=== PATIENT | female | born 1970 | race Caucasian/White ===

== ENCOUNTER 2019-12-02 14:10 | Outpatient (REF) | payer OTHER, SELFPAY | END 2019-12-02 14:11 | disposition home or self-care (01) | LOC: HO.XRAY 14:10 | PROVIDERS: Visit Provider Nurse Practitioner | DX: Z13.89 Encounter for screening for other disorder (principal) ==

== ENCOUNTER 2019-12-17 09:53 | Outpatient (REF) | payer OTHER, SELFPAY ==
[2019-12-17 10:38] LABS: Red Blood Count 4.07 X10*6/uL (4.20-5.50); Red Cell Distribution Width 13.3 % (11.0-16.0)
[2019-12-17 10:39] LABS: Basophils Percent Auto 0.4 % (0-2); Eosinophils Absolute Auto 0.1 X10*3/uL (0.0-0.4); Eosinophils Percent Auto 0.7 % (0-4); Hemoglobin 13.1 g/dl (12.0-16.0); Imm Gran Abs Auto 0.02 X10*3/uL (0.00-0.03); Imm Gran Pct Auto 0.2 % (0.0-0.4); Lymphocytes Absolute Auto 2.4 X10*3/uL (1.2-4.9); Lymphocytes Percent Auto 28.2 % (20-40); Mean Corpuscular HGB Conc 32.8 g/dl (31.0-35.0); Mean Corpuscular Hemoglobin 32.2 pg (27.0-33.0); Mean Corpuscular Volume 98.3 fL (80-98); Monocytes Absolute Auto 0.5 X10*3/uL (0.1-1.2); Monocytes Percent Auto 6.2 % (2-11); Neutrophils Absolute Auto 5.4 X10*3/uL (2.0-8.3); Neutrophils Percent Auto 64.3 % (45-73); Platelet Count 176 X10*3/uL (160-400); White Blood Count 8.4 X10*3/uL (4.8-10.8)
[2019-12-17 11:04] LABS: Alanine Aminotransferase 18 U/L (0-31); Albumin Level 4.5 g/dL (3.5-5.0); Alkaline Phosphatase 78 U/L (39-117); Anion Gap 15 (12-20); Aspartate Amino Transferase 28 U/L (5-31); Bilirubin Total 0.6 mg/dL (0.0-1.0); Blood Urea Nitrogen 17 mg/dL (9-16); Calcium 8.9 mg/dL (8.4-10.2); Carbon Dioxide 25 mmol/L (22-29); Chloride 107 mmol/L (96-108); Cholesterol 227 mg/dL; Estimated Glomerular Filt Rate > 60; Glucose Fasting 108 mg/dL (60-99); HDL Cholesterol 78 mg/dL; LDL Cholesterol Calculated 130 mg/dl; Potassium 4.5 mmol/l (3.3-5.1); Sodium 142 mmol/L (135-145); Total Protein 6.7 g/dL (6.5-8.0); Triglycerides 96 mg/dL
[2019-12-17 11:10] LABS: Glucose Urine UA NEG (NEG); Leukocyte Esterase Urine NEG (NEG); Nitrite Urine NEG (NEG); PH 6.5 (5.0-8.0); Specific Gravity - Urine 1.025 (1.005-1.025); Urine Blood NEG (NEG); Urine Ketones NEG (NEG); Urine Protein NEG (NEG-TRACE)
[2019-12-17 11:15] LABS: Appearance Urine HAZY; Color Urine YELLOW; UACC CULT NO
[2019-12-17 11:20] LABS: Erythrocyte Sedimentation Rate 2 MM/HR (0-20)
[2019-12-17 11:24] LABS: Vitamin D 25-OH Total 29.2 ng/mL (>30)
[2019-12-17 11:28] LABS: Amorphous Sediment Urine 1+ /LPF; Mucus Urine 3+ /LPF; RBC Urine 0 /HPF (0); Squamous Epithelial Cell Urine 2+ /LPF; WBC Urine 0 /HPF (0-4)
[2019-12-17 11:36] LABS: Folate 6.6 ng/mL (> or = 4.0); Vitamin B12 247 pg/mL (200-900)
== END 2019-12-17 09:54 | disposition home or self-care (01) ==
LOC: HO.LAB 09:53
PROVIDERS: PCP Internal Medicine; Visit Provider Internal Medicine
DX: E78.5 Hyperlipidemia, unspecified (principal); M54.14 Radiculopathy, thoracic region; M79.7 Fibromyalgia; M51.35 Other intervertebral disc degeneration, thoracolumbar region; N39.3 Stress incontinence (female) (male); E55.9 Vitamin D deficiency, unspecified
CPT/HCPCS: 36415; 80053; 80061; 81001; 82306; 82607; 82746; 83735; 85025; 85652; 86140

== ENCOUNTER 2019-12-24 17:10 | Outpatient (REF) | payer OTHER, SELFPAY | END 2019-12-24 17:11 | disposition home or self-care (01) | LOC: HO.LAB 17:10 | PROVIDERS: Visit Provider Internal Medicine | DX: Z20.828 Contact with and (suspected) exposure to other viral communicable diseases (principal) | CPT/HCPCS: C9803; U0003 ==

== ENCOUNTER 2020-01-22 13:22 | Outpatient (REF) | payer OTHER, SELFPAY ==
--- NOTE | 2020-01-22 | XR_ITS ---
EXAMINATION: XR LUMBAR SPINE XR SACRUM/COCCYX CLINICAL INFORMATION: Low back pain status post injury. COMPARISON: Lumbar spine radiographs 02/27/2018. TECHNIQUE: 3 views lumbar spine, 3 views sacrum and coccyx. FINDINGS: Again seen are degenerative changes in the lumbar spine. There has been interval increase in disc space narrowing at L3-L4 since the prior study. Marked narrowing at L4-L5 is seen. No bony destructive lesions are seen. Facet joint arthritic changes present at L4-L5 and L5-S1. The sacrum and coccyx appear unremarkable without fracture or bony destructive lesions. Phleboliths and probable fallopian tube occlusion device is present in the pelvis. XR/XR sacrum coccyx min 2V IMPRESSION: Slightly progressive degenerative changes lumbosacral spine at L3-L4 with the most prominent findings at L4-L5.
--- NOTE | 2020-01-22 13:28 | XR_ITS ---
EXAMINATION: XR LUMBAR SPINE XR SACRUM/COCCYX CLINICAL INFORMATION: Low back pain status post injury. COMPARISON: Lumbar spine radiographs 02/27/2018. TECHNIQUE: 3 views lumbar spine, 3 views sacrum and coccyx. FINDINGS: Again seen are degenerative changes in the lumbar spine. There has been interval increase in disc space narrowing at L3-L4 since the prior study. Marked narrowing at L4-L5 is seen. No bony destructive lesions are seen. Facet joint arthritic changes present at L4-L5 and L5-S1. The sacrum and coccyx appear unremarkable without fracture or bony destructive lesions. Phleboliths and probable fallopian tube occlusion device is present in the pelvis. XR/XR lumbar spine 2-3V IMPRESSION: Slightly progressive degenerative changes lumbosacral spine at L3-L4 with the most prominent findings at L4-L5.
[2020-01-24 08:30] LABS: HIV AB/AG Nonreactive (Nonreactive)
[2020-01-24 11:26] LABS: HIV Num 1 0.06 S/CO (0.00-0.99)
== END 2020-01-22 13:23 | disposition home or self-care (01) ==
LOC: HO.HMGCX 13:22
PROVIDERS: PCP Internal Medicine; Visit Provider Nurse Practitioner Family
DX: S39.92XA Unspecified injury of lower back, initial encounter (principal); Z20.6 Contact with and (suspected) exposure to human immunodeficiency virus [HIV]
CPT/HCPCS: 72100; 72220; 87389

== ENCOUNTER 2020-01-30 11:05 | Emergency (ER) | payer OTHER, SELFPAY ==
[2020-01-30 11:10] VITALS: PULSE 101; RESP 16; TEMP 36.6; O2SAT 99; BMI 25.8
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
--- NOTE | 2020-01-30 11:19 | XR_ITS ---
EXAMINATION: XR ANKLE, LEFT CLINICAL INFORMATION: Left ankle pain. COMPARISON: None TECHNIQUE: AP, lateral, and mortise views of the left ankle. FINDINGS: The bones and soft tissues are normal. No fracture. Alignment is anatomic. Joint spaces are maintained. No joint effusion. XR/XR ankle LT min 3V IMPRESSION: Unremarkable left ankle.
== END 2020-01-30 12:05 | disposition home or self-care (01) ==
PROVIDERS: Emergency Provider Emergency Medicine Emergency Medical Services; PCP Internal Medicine
DX: S90.02XA Contusion of left ankle, initial encounter (principal); M25.572 Pain in left ankle and joints of left foot; F17.210 Nicotine dependence, cigarettes, uncomplicated; Y29.XXXA Contact with blunt object, undetermined intent, initial encounter; Y93.01 Activity, walking, marching and hiking; Y92.9 Unspecified place or not applicable; Y99.9 Unspecified external cause status; Z71.6 Tobacco abuse counseling; Z79.899 Other long term (current) drug therapy
CPT/HCPCS: 73610; 99283

== ENCOUNTER 2020-02-06 03:45 | Emergency (ER) | payer OTHER, SELFPAY ==
[2020-02-06 03:51] VITALS: BP 112/63; PULSE 99; RESP 18; TEMP 36.6; O2SAT 98; BMI 25.7
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
--- NOTE | 2020-02-06 04:22 | PC.NURSE ---
PATIENT COOPERATIVE WITH STAFF, OBTAINING LABS AT THIS TIME. AWARE OF PLAN TO HAVE CRISIS EVALUATION. CHANGEOVER COMPLETED ON ARRIVAL WITHOUT ISSUE, NO CONTRABAND FOUND.
--- NOTE | 2020-02-06 04:25 | PC.NURSE ---
see previous nurse's notes regarding Suicidal statements. & autopsy assistant (Shannen) aware.
[2020-02-06 04:27] LABS: Basophils Percent Auto 0.4 % (0-2); Eosinophils Absolute Auto 0.1 X10*3/uL (0.0-0.4); Eosinophils Percent Auto 0.9 % (0-4); Hematocrit 37.2 % (37-47); Hemoglobin 12.3 g/dl (12.0-16.0); Imm Gran Abs Auto 0.02 X10*3/uL (0.00-0.03); Imm Gran Pct Auto 0.2 % (0.0-0.4); Lymphocytes Absolute Auto 3.4 X10*3/uL (1.2-4.9); Lymphocytes Percent Auto 40.2 % (20-40); MANUAL DIFF FLAG NO; Mean Corpuscular HGB Conc 33.1 g/dl (31.0-35.0); Mean Corpuscular Hemoglobin 32.3 pg (27.0-33.0); Mean Corpuscular Volume 97.6 fL (80-98); Mean Platelet Volume 12.7 fL (9.4-12.3); Monocytes Absolute Auto 0.5 X10*3/uL (0.1-1.2); Monocytes Percent Auto 6.3 % (2-11); Neutrophils Absolute Auto 4.4 X10*3/uL (2.0-8.3); Platelet Count 163 X10*3/uL (160-400); Red Blood Count 3.81 X10*6/uL (4.20-5.50); Red Cell Distribution Width 13.3 % (11.0-16.0); White Blood Count 8.4 X10*3/uL (4.8-10.8)
[2020-02-06 04:59] LABS: Ethanol 165 mg/dL
[2020-02-06 05:04] LABS: Alanine Aminotransferase 35 U/L (0-31); Albumin Level 4.2 g/dL (3.5-5.0); Anion Gap 16 (12-20); Aspartate Amino Transferase 87 U/L (5-31); Bilirubin Direct < 0.2 mg/dL (0.0-0.5); Bilirubin Total 0.2 mg/dL (0.0-1.0); Blood Urea Nitrogen 17 mg/dL (9-16); Calcium 8.7 mg/dL (8.4-10.2); Carbon Dioxide 22 mmol/L (22-29); Chloride 109 mmol/L (96-108); Creatinine Clr Calc Pharmacy 88.7; Estimated Glomerular Filt Rate > 60; Glucose Random 92 mg/dL (60-115); Sodium 143 mmol/L (135-145); Total Protein 6.5 g/dL (6.5-8.0)
[2020-02-06 05:13] LABS: Alkaline Phosphatase 95 U/L (39-117)
--- NOTE | 2020-02-06 05:22 | PC.NURSE ---
Patient just got transferred from main ED to POD, patient ambulated without gait deficit, provided urine sample and compliant covid swab/pending results. N faxed/called/spoke with Yamile[facility]/confirmed receiept of referral, will continue to monitor.
[2020-02-06 05:33] LABS: COVID-19 Test Negative (Negative)
[2020-02-06 05:56] LABS: Amphetamine Screen Urine Not Detected (Not Detect); Barbiturates, Urine Not Detected (Not Detect); Benzodiazepines Screen Urine Not Detected (Not Detect); Cannabinoid Screen Urine POSITIVE (Not Detect); Cocaine Screen Urine Not Detected (Not Detect); Opiate Screen Urine Not Detected (Not Detect); Phencyclidine Screen Urine Not Detected (Not Detect)
--- NOTE | 2020-02-06 07:04 | PC.NURSE ---
Report received. PT currently sleeping, respirations even and unlabored, in no apparent distress. Pt waiting to be seen.
[2020-02-06 09:02] VITALS: BP 126/76; PULSE 84; TEMP 36.3; O2SAT 99
== END 2020-02-06 16:26 | disposition home or self-care (01) ==
PROVIDERS: Emergency Provider Internal Medicine; PCP Internal Medicine
DX: F41.9 Anxiety disorder, unspecified (principal); F43.10 Post-traumatic stress disorder, unspecified; R45.851 Suicidal ideations; S00.83XA Contusion of other part of head, initial encounter; Y04.2XXA Assault by strike against or bumped into by another person, initial encounter; Z20.828 Contact with and (suspected) exposure to other viral communicable diseases; Y93.9 Activity, unspecified; Y92.009 Unspecified place in unspecified non-institutional (private) residence as the place of occurrence of the external cause; Y99.9 Unspecified external cause status
CPT/HCPCS: 36415; 80048; 80076; 80307; 80320; 85025; 87635; 99284

== ENCOUNTER 2020-02-11 11:31 | Outpatient (REF) | payer OTHER, SELFPAY ==
--- NOTE | 2020-02-11 11:35 | MM_ITS ---
EXAMINATION: MM SCREENING DIGITAL BREAST TOMOSYNTHESIS, BILATERAL CLINICAL INFORMATION: Screening. Asymptomatic. The lifetime risk of breast cancer based on the Tyrer-Cuzick Model is 7%. COMPARISON: Mammography: 11/08/2017, 10/07/2016, 07/23/2015, bilateral breast ultrasound 10/07/2016 TECHNIQUE: Digital breast tomosynthesis is performed in both the craniocaudal and mediolateral oblique views along with computer-aided detection (CAD). Synthesized 2D images are generated from the tomosynthesis. FINDINGS: There are scattered areas of fibroglandular density (ACR BI-RADS breast composition Category b). Parenchymal pattern is similar to prior studies. There is no developing density or interval mass or architectural abnormality. No abnormal calcifications. Again, there are scattered parenchymal asymmetries including stable nodular asymmetry 6:00 anterior mid right breast. The axilla and skin contours are unremarkable. There are no significant changes from prior studies. MM/MM tomosynthesis screening BI IMPRESSION: No significant changes from prior studies. ASSESSMENT: BI-RADS 2: Benign RECOMMENDATION: Routine annual mammography screening. This patient's information was entered into a reminder system with a target due date for their next mammogram.
== END 2020-02-11 11:32 | disposition home or self-care (01) ==
LOC: HO.MAMMO 11:31
PROVIDERS: PCP Internal Medicine; Visit Provider Internal Medicine
DX: Z12.31 Encounter for screening mammogram for malignant neoplasm of breast (principal)
CPT/HCPCS: 77063; 77067

== ENCOUNTER 2020-02-28 15:04 | Outpatient (REF) | payer OTHER, SELFPAY | END 2020-02-28 15:05 | disposition home or self-care (01) | LOC: HO.LAB 15:04 | PROVIDERS: PCP Internal Medicine; Visit Provider Obstetrics & Gynecology | DX: R73.01 Impaired fasting glucose (principal); R30.0 Dysuria; E78.00 Pure hypercholesterolemia, unspecified; G47.00 Insomnia, unspecified; R10.2 Pelvic and perineal pain; F17.210 Nicotine dependence, cigarettes, uncomplicated; Z79.899 Other long term (current) drug therapy; Z79.891 Long term (current) use of opiate analgesic; Z20.828 Contact with and (suspected) exposure to other viral communicable diseases | CPT/HCPCS: 36415; 87086; Q3014; U0003 ==

== ENCOUNTER 2020-03-01 12:29 | Emergency (ER) | payer OTHER, SELFPAY ==
[2020-03-01 12:46] VITALS: BP 134/79; PULSE 70; RESP 16; TEMP 36.8; O2SAT 97; BMI 24.5
--- NOTE | 2020-03-01 12:49 | XR_ITS ---
EXAMINATION: KNEE X-RAY CLINICAL INFORMATION: Fall COMPARISON: Previous exam May 2016 TECHNIQUE: 4 views left knee FINDINGS: Bone alignment is normal. No fracture or dislocation is seen. Joint spaces are normal. There is no joint effusion. XR/XR knee LT 2V IMPRESSION: Unremarkable exam. EXAMINATION: Chest x-ray CLINICAL INFORMATION: Chest pain. History of fall. COMPARISON: Previous chest x-ray April 2019 TECHNIQUE: Two-view chest FINDINGS: The cardiac and mediastinal contours are normal. The lungs are clear. There is no pleural effusion or pneumothorax. Bony structures are unremarkable. IMPRESSION: Unremarkable examination.
--- NOTE | 2020-03-01 12:49 | ECG_ITS ---
Test Reason : STERNAL PAIN Blood Pressure : / mmHG Vent. Rate : 068 BPM Atrial Rate : 068 BPM P-R Int : 158 ms QRS Dur : 078 ms QT Int : 400 ms P-R-T Axes : 027 061 052 degrees QTc Int : 425 ms Normal sinus rhythm Normal ECG When compared with ECG of 19-APR-2019 05:50, No significant change was found Referred By: Qiana Galvan Electronically Signed By:ELISABET UMANZOR
--- NOTE | 2020-03-01 12:49 | XR_ITS ---
EXAMINATION: KNEE X-RAY CLINICAL INFORMATION: Fall COMPARISON: Previous exam May 2016 TECHNIQUE: 4 views left knee FINDINGS: Bone alignment is normal. No fracture or dislocation is seen. Joint spaces are normal. There is no joint effusion. XR/XR chest 2V IMPRESSION: Unremarkable exam. EXAMINATION: Chest x-ray CLINICAL INFORMATION: Chest pain. History of fall. COMPARISON: Previous chest x-ray April 2019 TECHNIQUE: Two-view chest FINDINGS: The cardiac and mediastinal contours are normal. The lungs are clear. There is no pleural effusion or pneumothorax. Bony structures are unremarkable. IMPRESSION: Unremarkable examination.
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
--- NOTE | 2020-03-01 13:06 | PC.NURSE ---
ekg performed, results reviewed by tootie salamanca/dr stewart
[2020-03-01 13:44] VITALS: BP 127/80; PULSE 60; RESP 12; TEMP 36.6; O2SAT 97
== END 2020-03-01 14:24 | disposition home or self-care (01) ==
PROVIDERS: Emergency Provider Emergency Medicine Emergency Medical Services; PCP Internal Medicine
DX: R07.89 Other chest pain (principal); M25.562 Pain in left knee; F17.210 Nicotine dependence, cigarettes, uncomplicated; Z71.6 Tobacco abuse counseling; Z79.899 Other long term (current) drug therapy
CPT/HCPCS: 71046; 73560; 93005; 99283; 99284

== ENCOUNTER 2020-03-10 23:29 | Emergency (ER) | payer OTHER, SELFPAY ==
[2020-03-10 23:32] VITALS: BP 127/84; PULSE 108; RESP 18; TEMP 36.6; O2SAT 97; BMI 24.4
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
--- NOTE | 2020-03-11 00:35 | PC.NURSE ---
PT LAC CLEANED WITH NS. DR CARRINGTON SUTURED RING FINGER AND DERMABOND TO POINTER FINGER BAND AID APPLIED TO RING POINTER DERMABOND FINISH CARPENTER.
[2020-03-11] MEDS: Lidocaine HCl 2 % MPF 5 ML VIAL INFILTRATI (00:38)
== END 2020-03-11 01:00 | disposition home or self-care (01) ==
PROVIDERS: Emergency Provider Emergency Medicine Emergency Medical Services; PCP Internal Medicine
DX: S61.212A Laceration without foreign body of right middle finger without damage to nail, initial encounter (principal); M79.644 Pain in right finger(s); X99.0XXA Assault by sharp glass, initial encounter; Y93.9 Activity, unspecified; Y92.009 Unspecified place in unspecified non-institutional (private) residence as the place of occurrence of the external cause; Y99.9 Unspecified external cause status
CPT/HCPCS: 12001; 99284

== ENCOUNTER → 2020-04-15 15:32 | Outpatient (BNVA) | payer OTHER, SELFPAY | PROVIDERS: Visit Provider Obstetrics & Gynecology ==

== ENCOUNTER 2020-05-19 14:06 | Outpatient (REF) | payer OTHER, SELFPAY ==
--- NOTE | ~2020-05-19 | US_ITS ---
EXAM: Pelvic Ultrasound CLINICAL INDICATION: 49-year-old female with pelvic and perineal pain. COMPARISON: Pelvic ultrasound May 07, 2018 TECHNIQUE: The pelvis was evaluated using transabdominal and transvaginal imaging. FINDINGS: The uterus measures 5.3 x 2.5 x 3.4 cm in longitudinal by AP by transverse dimension. The endometrial stripe is not thickened and measures 0.2 cm. The uterus demonstrates a somewhat heterogeneous echotexture without focal mass. Nabothian cysts are demonstrated within the cervix. The left ovary measures approximately 2.2 x 1.4 x 1.3 cm and is normal. The right ovary measures approximately 2.2 x 1.8 x 1.0 cm and is also normal. There are no abnormal adnexal masses. There is no free fluid in the pelvis. US/US pelvic complete IMPRESSION: Unremarkable sonographic imaging of the pelvis.
--- NOTE | ~2020-05-19 | US_ITS ---
EXAM: Pelvic Ultrasound CLINICAL INDICATION: 49-year-old female with pelvic and perineal pain. COMPARISON: Pelvic ultrasound May 07, 2018 TECHNIQUE: The pelvis was evaluated using transabdominal and transvaginal imaging. FINDINGS: The uterus measures 5.3 x 2.5 x 3.4 cm in longitudinal by AP by transverse dimension. The endometrial stripe is not thickened and measures 0.2 cm. The uterus demonstrates a somewhat heterogeneous echotexture without focal mass. Nabothian cysts are demonstrated within the cervix. The left ovary measures approximately 2.2 x 1.4 x 1.3 cm and is normal. The right ovary measures approximately 2.2 x 1.8 x 1.0 cm and is also normal. There are no abnormal adnexal masses. There is no free fluid in the pelvis. US/US transvaginal IMPRESSION: Unremarkable sonographic imaging of the pelvis.
== END 2020-05-19 14:07 | disposition home or self-care (01) ==
LOC: HO.US 14:06
PROVIDERS: Visit Provider Obstetrics & Gynecology
DX: R10.2 Pelvic and perineal pain (principal); R30.0 Dysuria
CPT/HCPCS: 76830; 76856

== ENCOUNTER 2020-06-11 11:20 | Outpatient (REF) | payer OTHER, SELFPAY ==
--- NOTE | ~2020-06-11 | XR_ITS ---
EXAMINATION: XR CHEST CLINICAL INFORMATION: Respiratory infection. COMPARISON: 03/01/2020 TECHNIQUE: 2 views of the chest were obtained. FINDINGS: The cardiomediastinal silhouette is within normal limits. The lungs are well expanded. Mild hazy opacity in the right lower lung, may represent a subtle developing infiltrate. No dense consolidation. No edema, or effusion. No pneumothorax. No acute osseous abnormality. XR/XR chest 2V IMPRESSION: Mild hazy opacity in the right lower lung, may represent a subtle developing infiltrate. No dense lobar consolidation.
--- NOTE | ~2020-06-11 | XR_ITS ---
EXAMINATION: XR LEFT HIP XR SACRUM CLINICAL INFORMATION: Pain COMPARISON: None TECHNIQUE: Left hip 2 views. Sacrum and coccyx 3 views. FINDINGS: Left Hip: No fracture or dislocation. Joint space is maintained. No abnormal soft tissue calcification Sacrum and Coccyx: No evidence of acute fracture or malalignment. SI joints are intact. Visualized pelvic bones appear intact. Calcification of the pelvis, probable phleboliths. XR/XR sacrum coccyx min 2V IMPRESSION: No acute osseous abnormality.
--- NOTE | ~2020-06-11 | XR_ITS ---
EXAMINATION: XR LEFT HIP XR SACRUM CLINICAL INFORMATION: Pain COMPARISON: None TECHNIQUE: Left hip 2 views. Sacrum and coccyx 3 views. FINDINGS: Left Hip: No fracture or dislocation. Joint space is maintained. No abnormal soft tissue calcification Sacrum and Coccyx: No evidence of acute fracture or malalignment. SI joints are intact. Visualized pelvic bones appear intact. Calcification of the pelvis, probable phleboliths. XR/XR hip LT min 2V IMPRESSION: No acute osseous abnormality.
[2020-06-11 12:41] LABS: Imm Gran Abs Auto 0.02 X10*3/uL (0.00-0.03); Imm Gran Pct Auto 0.3 % (0.0-0.4); MANUAL DIFF FLAG SCAN; Platelet Count 162 X10*3/uL (160-400); SCAN SMEAR FLAG 1
[2020-06-11 12:43] LABS: Basophils Percent Auto 0.6 % (0-2); Eosinophils Absolute Auto 0.1 X10*3/uL (0.0-0.4); Eosinophils Percent Auto 0.7 % (0-4); Hematocrit 38.6 % (37-47); Hemoglobin 12.7 g/dl (12.0-16.0); Lymphocytes Absolute Auto 2.8 X10*3/uL (1.2-4.9); Lymphocytes Percent Auto 38.9 % (20-40); Mean Corpuscular HGB Conc 32.9 g/dl (31.0-35.0); Mean Corpuscular Hemoglobin 32.3 pg (27.0-33.0); Mean Corpuscular Volume 98.2 fL (80-98); Mean Platelet Volume 14.1 fL (9.4-12.3); Monocytes Absolute Auto 0.5 X10*3/uL (0.1-1.2); Neutrophils Absolute Auto 3.7 X10*3/uL (2.0-8.3); Neutrophils Percent Auto 52.5 % (45-73); Red Blood Count 3.93 X10*6/uL (4.20-5.50); White Blood Count 7.1 X10*3/uL (4.8-10.8)
[2020-06-11 12:46] LABS: Alanine Aminotransferase 22 U/L (0-31); Albumin Level 4.5 g/dL (3.5-5.0); Alkaline Phosphatase 93 U/L (39-117); Anion Gap 14 (12-20); Aspartate Amino Transferase 22 U/L (5-31); Bilirubin Total 0.5 mg/dL (0.0-1.0); Blood Urea Nitrogen 16 mg/dL (9-16); Calcium 9.5 mg/dL (8.4-10.2); Carbon Dioxide 25 mmol/L (22-29); Chloride 108 mmol/L (96-108); Cholesterol 186 mg/dL; Estimated Glomerular Filt Rate > 60; Glucose Fasting 106 mg/dL (60-99); HDL Cholesterol 75 mg/dL; LDL Cholesterol Calculated 101 mg/dl; Potassium 4.7 mmol/L (3.3-5.1); Sodium 142 mmol/L (135-145); Total Protein 6.7 g/dL (6.5-8.0); Triglycerides 54 mg/dL
[2020-06-11 12:58] LABS: PLT ABN DIST 1
[2020-06-11 13:54] LABS: Estimated Average Glucose 94 mg/dL; Hemoglobin A1c % 4.9 %
== END 2020-06-11 11:21 | disposition home or self-care (01) ==
LOC: HO.LAB 11:20
PROVIDERS: PCP Internal Medicine; Visit Provider Internal Medicine
DX: J98.8 Other specified respiratory disorders (principal); M25.552 Pain in left hip; R73.01 Impaired fasting glucose; E78.00 Pure hypercholesterolemia, unspecified; G47.00 Insomnia, unspecified; M79.7 Fibromyalgia; F17.200 Nicotine dependence, unspecified, uncomplicated; Z20.6 Contact with and (suspected) exposure to human immunodeficiency virus [HIV]
CPT/HCPCS: 36415; 71046; 72220; 73502; 80053; 80061; 83036; 85025

== ENCOUNTER 2020-07-04 12:15 | Emergency (ER) | payer OTHER, SELFPAY ==
--- NOTE | ~2020-07-04 | XR_ITS ---
EXAMINATION: XR FOOT, RIGHT CLINICAL INFORMATION: Right foot pain, bruising status post injury. COMPARISON: None TECHNIQUE: AP, lateral, and oblique views of the right foot. FINDINGS: There is a nondisplaced transverse fracture at the level the proximal metaphysis of the proximal phalanx of the fifth digit. The remainder the digits appear intact. The tarsal bones are normally aligned. There is mild soft tissue swelling. XR/XR foot RT min 3V IMPRESSION: Acute, nondisplaced fracture of the proximal phalanx of the fifth digit with mild soft tissue swelling.
[2020-07-04 12:39] VITALS: BP 139/86; PULSE 84; RESP 20; TEMP 36.1; O2SAT 98; BMI 26.9
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
== END 2020-07-04 15:16 | disposition home or self-care (01) ==
PROVIDERS: Emergency Provider Emergency Medicine; PCP Internal Medicine
DX: S92.514A Nondisplaced fracture of proximal phalanx of right lesser toe(s), initial encounter for closed fracture (principal); W22.8XXA Striking against or struck by other objects, initial encounter; Y93.89 Activity, other specified; Y92.012 Bathroom of single-family (private) house as the place of occurrence of the external cause; Y99.9 Unspecified external cause status
CPT/HCPCS: 73630; 99283

== ENCOUNTER → 2020-07-21 13:13 | Outpatient (BNVA) | payer OTHER, SELFPAY | PROVIDERS: Visit Provider Physician Assistant | DX: S92.514A Nondisplaced fracture of proximal phalanx of right lesser toe(s), initial encounter for closed fracture (principal) | CPT/HCPCS: 99202 ==

== ENCOUNTER 2020-08-06 11:02 | Outpatient (REF) | payer OTHER, SELFPAY ==
[2020-08-07 07:57] LABS: Syphilis Screen Reactive (Nonreactive)
[2020-08-07 08:09] LABS: HIV AB/AG Nonreactive (Nonreactive); HIV Num 1 0.05 S/CO (0.00-0.99)
[2020-08-07 08:35] LABS: HBsAGNum1 0.16 S/CO (0.00-0.99); Hepatitis B Surface Antigen Negative (Negative); ~HepC Num1 0.08 S/CO (0.00-0.79); ~Hepatitis C Antibody Nonreactive (Nonreactive)
[2020-08-07 08:51] LABS: BV Int Neg Control Negative (Negative); BV Int Pos Control Positive (Positive)
[2020-08-07 09:01] LABS: CT PCR NOT DETECTED (Not Detect.); NG PCR NOT DETECTED (Not Detect.)
[2020-08-14 07:41] LABS: RPR Quantitative Non-Reactive (Nonreactive)
[2020-08-14 07:42] LABS: T.Pallidum Particle Agg Test Reactive (Nonreactive)
== END 2020-08-06 11:03 | disposition home or self-care (01) ==
LOC: HO.LAB 11:02
PROVIDERS: PCP Internal Medicine; Visit Provider Obstetrics & Gynecology
DX: N76.0 Acute vaginitis (principal); B96.89 Other specified bacterial agents as the cause of diseases classified elsewhere; R31.29 Other microscopic hematuria; Z11.3 Encounter for screening for infections with a predominantly sexual mode of transmission
CPT/HCPCS: 36415; 86592; 86780; 86803; 87086; 87088; 87186; 87340; 87389; 87480; 87491; 87510; 87591; 87660; 99212

== ENCOUNTER → 2020-08-31 14:39 | Outpatient (BNVA) | payer OTHER, SELFPAY | PROVIDERS: PCP Internal Medicine; Visit Provider Obstetrics & Gynecology | DX: R31.29 Other microscopic hematuria (principal); A53.0 Latent syphilis, unspecified as early or late | CPT/HCPCS: 99212 ==

== ENCOUNTER 2020-09-23 00:20 | Emergency (ER) | payer OTHER, SELFPAY ==
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
[2020-09-23 00:41] VITALS: BP 113/86; PULSE 113; RESP 20; TEMP 37; O2SAT 98; BMI 24.7
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
== END 2020-09-23 02:32 | disposition home or self-care (01) ==
PROVIDERS: Emergency Provider Emergency Medicine
DX: T74.11XA Adult physical abuse, confirmed, initial encounter (principal); S13.9XXA Sprain of joints and ligaments of unspecified parts of neck, initial encounter; S60.222A Contusion of left hand, initial encounter; Y04.2XXA Assault by strike against or bumped into by another person, initial encounter; Y07.03 Male partner, perpetrator of maltreatment and neglect
CPT/HCPCS: 72125; 73130; 99283; 99284

== ENCOUNTER 2020-10-21 09:36 | Emergency (ER) | payer OTHER, SELFPAY ==
[2020-10-21 09:41] VITALS: BP 156/81; PULSE 93; RESP 18; TEMP 36.8; O2SAT 97; BMI 23.8
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
== END 2020-10-21 11:20 | disposition home or self-care (01) ==
PROVIDERS: Emergency Provider Emergency Medicine; PCP Internal Medicine
DX: S16.1XXA Strain of muscle, fascia and tendon at neck level, initial encounter (principal); S46.911A Strain of unspecified muscle, fascia and tendon at shoulder and upper arm level, right arm, initial encounter; M54.2 Cervicalgia; F17.210 Nicotine dependence, cigarettes, uncomplicated; Y04.8XXA Assault by other bodily force, initial encounter; Y93.9 Activity, unspecified; Y92.9 Unspecified place or not applicable; Y99.9 Unspecified external cause status; Z79.899 Other long term (current) drug therapy; Z71.6 Tobacco abuse counseling
CPT/HCPCS: 99283

== ENCOUNTER 2021-01-28 10:58 | Outpatient (REF) | payer OTHER, SELFPAY ==
[2021-01-28 12:44] LABS: Basophils Percent Auto 0.4 % (0-2); Eosinophils Absolute Auto 0.1 X10*3/uL (0.0-0.4); Hemoglobin 14.2 g/dl (12.0-16.0); Imm Gran Abs Auto 0.02 X10*3/uL (0.00-0.03); Imm Gran Pct Auto 0.3 % (0.0-0.4); Mean Corpuscular Volume 96.6 fL (80.0-98.0); Red Cell Distribution Width 14.3 % (11.0-16.0); SCAN SMEAR FLAG 1
[2021-01-28 12:46] LABS: Hematocrit 42.6 % (37.0-47.0); Lymphocytes Absolute Auto 2.9 X10*3/uL (1.2-4.9); Lymphocytes Percent Auto 36.9 % (20-40); Mean Corpuscular HGB Conc 33.3 g/dl (31.0-35.0); Mean Corpuscular Hemoglobin 32.2 pg (27.0-33.0); Monocytes Absolute Auto 0.5 X10*3/uL (0.1-1.2); Monocytes Percent Auto 6.8 % (2-11); Neutrophils Absolute Auto 4.3 x10*3/uL (2.0-8.3); Neutrophils Percent Auto 54.6 % (45-73); Platelet Count 174 X10*3/uL (160-400); Red Blood Count 4.41 X10*6/uL (4.20-5.50); White Blood Count 7.9 X10*3/uL (4.8-10.8)
[2021-01-28 12:52] LABS: MANUAL DIFF FLAG NO; PLT ABN DIST 1
[2021-01-28 13:10] LABS: Alanine Aminotransferase 14 U/L (0-31); Albumin Level 4.4 g/dL (3.5-5.0); Alkaline Phosphatase 91 U/L (39-117); Anion Gap 12 (12-20); Aspartate Amino Transferase 21 U/L (5-31); Bilirubin Total 0.5 mg/dL (0.0-1.0); Blood Urea Nitrogen 11 mg/dL (9-16); C Reactive Protein 0.08 mg/dL (< or = 0.50); Carbon Dioxide 27 mmol/L (22-29); Chloride 108 mmol/L (96-108); Estimated Glomerular Filt Rate > 60; Glucose Random 96 mg/dL (60-115); Sodium 142 mmol/L (135-145); Total Protein 6.9 g/dL (6.5-8.0)
== END 2021-01-28 10:59 | disposition home or self-care (01) ==
LOC: HO.LAB 10:58
PROVIDERS: PCP Internal Medicine; Referring Provider Internal Medicine; Visit Provider Nurse Practitioner
DX: R13.12 Dysphagia, oropharyngeal phase (principal); R19.7 Diarrhea, unspecified; K21.9 Gastro-esophageal reflux disease without esophagitis; R49.0 Dysphonia
CPT/HCPCS: 36415; 80053; 85025; 86140; 99212

== ENCOUNTER 2021-02-04 13:55 | Outpatient (REF) | payer OTHER, SELFPAY | END 2021-02-04 13:56 | disposition home or self-care (01) | LOC: HO.LNP 13:55 | PROVIDERS: Visit Provider Nurse Practitioner | DX: R19.7 Diarrhea, unspecified (principal) | CPT/HCPCS: 87045; 87046; 87338 ==

== ENCOUNTER 2021-03-20 16:40 | Emergency (ER) | payer OTHER, SELFPAY ==
[2021-03-20] VITALS (8 sets, daily range): BP systolic 000–116; BP diastolic 00–79; PULSE 0–84; RESP 15–22; TEMP -17.7–36.8; O2SAT 0–94; BMI 42.9
--- NOTE | 2021-03-20 17:05 | ED_ITS ---
HPI - Altered Mental Status General Chief Complaint: Psychiatric Symptoms Stated Complaint: SI/HI UNCOOPERATIVE PER EMS Time Seen by Provider: 03/20/21 16:54 History of Present Illness HPI narrative: Patient is a 50-year-old female presents today with having altered mental status extremely agitated. History of anxiety. History of COPD. Patient very upset found in an alley. Agitated yelling screaming. Question suicidal ideations. Unable to answer specific questions. Related Data Home Medications Medication Instructions Recorded Confirmed cholecalciferol (vitamin D3) 25 25 mcg PO DAILY 12/23/19 06/05/20 mcg (1,000 unit) tablet fluoxetine 10 mg capsule (Prozac) 10 mg PO DAILY 04/15/20 06/05/20 emtricitabine 200 mg-tenofovir 1 tab PO DAILY 07/21/20 disoproxil fumarate 300 mg tablet Previous Rx's Medication Instructions Recorded ibuprofen 400 mg tablet 400 mg PO Q6H PRN #20 tab 03/01/20 meloxicam 15 mg tablet 15 mg PO DAILY 30 Days #30 tab 04/17/20 ibuprofen 800 mg tablet 800 mg PO Q8H PRN #15 tab 07/04/20 metronidazole 0.75 % vaginal gel 1 appful VAGINAL BEDTIME 5 Days 08/06/20 #37.5 g duloxetine 60 mg capsule,delayed 60 mg PO DAILY #90 cap 08/28/20 release trazodone 50 mg tablet 50 mg PO BEDTIME PRN #90 tab 09/06/20 acetaminophen 500 mg tablet 1,000 mg PO QID PRN #14 tab 10/21/20 (Tylenol Extra Strength) lidocaine HCl 4 % topical cream 1 appl TOPICAL BID PRN #120 g 10/21/20 (Aspercreme (lidocaine HCl)) naproxen 500 mg tablet 500 mg PO BID PRN #10 tab 10/21/20 oxycodone 5 mg tablet 5 mg PO Q6H PRN #14 tab 10/21/20 omeprazole 40 mg capsule,delayed 40 mg PO DAILY 30 Days #30 cap 01/28/21 release simvastatin 10 mg tablet 10 mg PO DAILY #90 tab 02/01/21 Allergies Allergy/AdvReac Type Severity Reaction Status Date / Time No Known Allergies Allergy Verified 08/31/20 14:52 [No Known Allergies*] Review of Systems Review of Systems: Yes Unobtainable due to mental status PMFSH Past Medical History Attestation statement: The following information was validated with the patient. Medical History Abdominal pain Ankle pain, left Anxiety and depression Arthralgia Carpal tunnel syndrome on both sides Cellulitis of right ring finger DDD (degenerative disc disease), thoracolumbar Degenerative arthritis Degenerative disc disease, cervical Fibromyalgia Impaired fasting glucose Insomnia Left hip pain Lumbar radiculopathy Mild stress incontinence Overweight (BMI 25.0-29.9) Posttraumatic stress disorder Pure hypercholesterolemia Smoker Thrombocytopenia Vitamin D deficiency Surgical History History of hip surgery History of tubal ligation Family History Family History Father Diabetes Hypertension Mother Diabetes Hypertension Maternal Grandmother Renal disease Daughter Depression with anxiety Son Depression with anxiety Social History Social History Alcohol intake: current Alcohol intake frequency: a few times a week Alcohol type: beer Cigarettes Per Day: 10 Substance Use Type: Marijuana Advance Directives: Yes Advance Directives on File: Yes Advance Directives Date on File: 12/02/19 Patient : No Current occupational status: unemployed Current occupation: right handed Physical Exam Vital Signs: Vital Signs: Last Vital Signs Temp 98.3 F 03/20/21 18:23 Pulse 84 03/20/21 18:23 Resp 16 03/20/21 18:47 BP 116/79 03/20/21 18:23 Pulse Ox 94 03/20/21 18:23 BMI result Body Mass Index 42.9 Appearance: Agitated Eyes: Pupils equal, round and reactive to light. ENT: Pharynx normal. Neck: Normal inspection. Neck supple. No lymph nodes noted. No crepitus CVS: Normal heart rate and rhythm. Pulses normal. Normal S1 and S2 Respiratory: No respiratory distress. Breath sounds normal. No Wheezing. No rales Abdomen: Soft and nontender. No rigidity. No distention. good BS x4 Skin: Skin warm and dry. Normal skin color. Normal skin turgor. Extremities: No lower extremity edema. Neurovascular intact to all extremities. No Lacerations. No Rash Neuro: extremely agitated yelling and screaming moving all extremities MDM - Altered Mental Status MDM Narrative Medical decision making narrative: Patient extremely agitated given 5 of Haldol to Ativan with good results. Crisis to see patient. Labs unremarkable in stable condition medically cleared. Lab Data Result diagrams: 03/20/21 19:46 03/20/21 19:46 Labs: Lab Results 03/20/21 03/20/21 03/20/21 Range/Units 17:31 18:18 19:37 WBC (4.8-10.8) X10*3/uL RBC (4.20-5.50) X10*6/uL Hgb (12.0-16.0) g/dl Hct (37.0-47.0) % MCV (80.0-98.0) fL MCH (27.0-33.0) pg MCHC (31.0-35.0) g/dl RDW (11.0-16.0) % Plt Count (160-400) X10*3/uL MPV (9.4-12.3) fL Immature Gran % (Auto) (0.0-0.4) % Neut % (Auto) (45-73) % Lymph % (Auto) (20-40) % [place] % (Auto) (2-11) % Eos % (Auto) (0-4) % Baso % (Auto) (0-2) % Lymph # (Auto) (1.2-4.9) X10*3/uL [place] # (Auto) (0.1-1.2) X10*3/uL Eos # (Auto) (0.0-0.4) X10*3/uL Baso # (Auto) (0.0-0.2) X10*3/uL Abs Immat Gran (auto) (0.00-0.03) X10*3/uL Absolute Neuts (auto) (2.0-8.3) x10*3/uL Absolute Nucleated RBC (0.0-0.012) X10*3/uL Nucleated RBC % (auto) (0.0-0.2) /100WBC Sodium (135-145) mmol/L Potassium (3.3-5.1) mmol/L Chloride (96-108) mmol/L Carbon Dioxide (22-29) mmol/L Anion Gap (12-20) BUN (9-16) mg/dL Creatinine (0.5-1.4) mg/dL Estim Creat Clear Calc Estimated GFR POC Glucose 71 (60-115) mg/dL Random Glucose (60-115) mg/dL Calcium (8.4-10.2) mg/dL Total Bilirubin (0.0-1.0) mg/dL Direct Bilirubin (0.0-0.5) mg/dL AST (5-31) U/L ALT (0-31) U/L Alkaline Phosphatase (39-117) U/L Total Protein (6.5-8.0) g/dL Albumin (3.5-5.0) g/dL Urine Color YELLOW Urine Appearance CLEAR Urine pH 5.5 (5.0-8.0) Ur Specific Barrett <= 1.005 (1.005-1.025) Urine Protein NEG (NEG-TRACE) MG/DL Urine Glucose (UA) NEG (NEG) MG/DL Urine Ketones NEG (NEG) MG/DL Urine Blood TRACE (NEG) Urine Nitrite NEG (NEG) Ur Leukocyte Esterase NEG (NEG) Urine RBC 1-4 (0) /HPF Urine WBC 0 (0-4) /HPF Ur Squamous Epith Cells NONE /LPF Urine Bacteria NONE /LPF Urine Opiates Screen (Not Detect) Urine Fentanyl Screen (Not Detect) Ur Barbiturates Screen (Not Detect) Ur Phencyclidine Scrn (Not Detect) Ur Amphetamines Screen (Not Detect) U Benzodiazepines Scrn (Not Detect) Urine Cocaine Screen (Not Detect) U Marijuana (THC) Screen (Not Detect) Ethyl Alcohol mg/dL COVID-19 ([facility]ILIANA) Negative (Negative) COVID-19 Clin Com See Note 03/20/21 03/20/21 03/20/21 Range/Units 19:37 19:46 19:46 WBC 13.0 H (4.8-10.8) X10*3/uL RBC 4.13 L (4.20-5.50) X10*6/uL Hgb 13.2 (12.0-16.0) g/dl Hct 38.5 (37.0-47.0) % MCV 93.2 (80.0-98.0) fL MCH 32.0 (27.0-33.0) pg MCHC 34.3 (31.0-35.0) g/dl RDW 13.5 (11.0-16.0) % Plt Count 152 L (160-400) X10*3/uL MPV 12.9 H (9.4-12.3) fL Immature Gran % (Auto) 0.3 (0.0-0.4) % Neut % (Auto) 76.1 H (45-73) % Lymph % (Auto) 18.4 L (20-40) % [place] % (Auto) 4.8 (2-11) % Eos % (Auto) 0.2 (0-4) % Baso % (Auto) 0.2 (0-2) % Lymph # (Auto) 2.4 (1.2-4.9) X10*3/uL [place] # (Auto) 0.6 (0.1-1.2) X10*3/uL Eos # (Auto) 0.0 (0.0-0.4) X10*3/uL Baso # (Auto) 0.0 (0.0-0.2) X10*3/uL Abs Immat Gran (auto) 0.04 H (0.00-0.03) X10*3/uL Absolute Neuts (auto) 9.9 H (2.0-8.3) x10*3/uL Absolute Nucleated RBC 0.000 (0.0-0.012) X10*3/uL Nucleated RBC % (auto) 0.0 (0.0-0.2) /100WBC Sodium 144 (135-145) mmol/L Potassium 3.8 D (3.3-5.1) mmol/L Chloride 113 H (96-108) mmol/L Carbon Dioxide 20 L (22-29) mmol/L Anion Gap 15 (12-20) BUN 12 (9-16) mg/dL Creatinine 0.91 (0.5-1.4) mg/dL Estim Creat Clear Calc 89.3 Estimated GFR > 60 POC Glucose (60-115) mg/dL Random Glucose 86 (60-115) mg/dL Calcium 9.6 (8.4-10.2) mg/dL Total Bilirubin 0.5 (0.0-1.0) mg/dL Direct Bilirubin 0.2 (0.0-0.5) mg/dL AST 30 D (5-31) U/L ALT 23 (0-31) U/L Alkaline Phosphatase 98 (39-117) U/L Total Protein 6.9 (6.5-8.0) g/dL Albumin 4.4 (3.5-5.0) g/dL Urine Color Urine Appearance Urine pH (5.0-8.0) Ur Specific Barrett (1.005-1.025) Urine Protein (NEG-TRACE) MG/DL Urine Glucose (UA) (NEG) MG/DL Urine Ketones (NEG) MG/DL Urine Blood (NEG) Urine Nitrite (NEG) Ur Leukocyte Esterase (NEG) Urine RBC (0) /HPF Urine WBC (0-4) /HPF Ur Squamous Epith Cells /LPF Urine Bacteria /LPF Urine Opiates Screen Not Detected (Not Detect) Urine Fentanyl Screen Not Detected (Not Detect) Ur Barbiturates Screen Not Detected (Not Detect) Ur Phencyclidine Scrn Not Detected (Not Detect) Ur Amphetamines Screen Not Detected (Not Detect) U Benzodiazepines Scrn Not Detected (Not Detect) Urine Cocaine Screen Not Detected (Not Detect) U Marijuana (THC) Screen POSITIVE H (Not Detect) Ethyl Alcohol mg/dL COVID-19 (EMILIANA) (Negative) COVID-19 Clin Com 03/20/21 Range/Units 19:46 WBC (4.8-10.8) X10*3/uL RBC (4.20-5.50) X10*6/uL Hgb (12.0-16.0) g/dl Hct (37.0-47.0) % MCV (80.0-98.0) fL MCH (27.0-33.0) pg MCHC (31.0-35.0) g/dl RDW (11.0-16.0) % Plt Count (160-400) X10*3/uL MPV (9.4-12.3) fL Immature Gran % (Auto) (0.0-0.4) % Neut % (Auto) (45-73) % Lymph % (Auto) (20-40) % [place] % (Auto) (2-11) % Eos % (Auto) (0-4) % Baso % (Auto) (0-2) % Lymph # (Auto) (1.2-4.9) X10*3/uL [place] # (Auto) (0.1-1.2) X10*3/uL Eos # (Auto) (0.0-0.4) X10*3/uL Baso # (Auto) (0.0-0.2) X10*3/uL Abs Immat Gran (auto) (0.00-0.03) X10*3/uL Absolute Neuts (auto) (2.0-8.3) x10*3/uL Absolute Nucleated RBC (0.0-0.012) X10*3/uL Nucleated RBC % (auto) (0.0-0.2) /100WBC Sodium (135-145) mmol/L Potassium (3.3-5.1) mmol/L Chloride (96-108) mmol/L Carbon Dioxide (22-29) mmol/L Anion Gap (12-20) BUN (9-16) mg/dL Creatinine (0.5-1.4) mg/dL Estim Creat Clear Calc Estimated GFR POC Glucose (60-115) mg/dL Random Glucose (60-115) mg/dL Calcium (8.4-10.2) mg/dL Total Bilirubin (0.0-1.0) mg/dL Direct Bilirubin (0.0-0.5) mg/dL AST (5-31) U/L ALT (0-31) U/L Alkaline Phosphatase (39-117) U/L Total Protein (6.5-8.0) g/dL Albumin (3.5-5.0) g/dL Urine Color Urine Appearance Urine pH (5.0-8.0) Ur Specific Barrett (1.005-1.025) Urine Protein (NEG-TRACE) MG/DL Urine Glucose (UA) (NEG) MG/DL Urine Ketones (NEG) MG/DL Urine Blood (NEG) Urine Nitrite (NEG) Ur Leukocyte Esterase (NEG) Urine RBC (0) /HPF Urine WBC (0-4) /HPF Ur Squamous Epith Cells /LPF Urine Bacteria /LPF Urine Opiates Screen (Not Detect) Urine Fentanyl Screen (Not Detect) Ur Barbiturates Screen (Not Detect) Ur Phencyclidine Scrn (Not Detect) Ur Amphetamines Screen (Not Detect) U Benzodiazepines Scrn (Not Detect) Urine Cocaine Screen (Not Detect) U Marijuana (THC) Screen (Not Detect) Ethyl Alcohol 104 mg/dL COVID-19 (EMILIANA) (Negative) COVID-19 Clin Com Discharge Plan Discharge Clinical Impression: Psychosis Prescriptions: No Action duloxetine 60 mg capsule,delayed release(DR/EC) 60 mg PO DAILY Qty: 90 1RF trazodone 50 mg tablet 50 mg PO BEDTIME PRN (Reason: for insomnia) Qty: 90 1RF simvastatin 10 mg tablet 10 mg PO DAILY Qty: 90 1RF ibuprofen 800 mg tablet 800 mg PO Q8H PRN (Reason: pain) Qty: 15 0RF acetaminophen [Tylenol Extra Strength] 500 mg tablet 1,000 mg PO QID PRN (Reason: fever or pain) Qty: 14 0RF naproxen 500 mg tablet 500 mg PO BID PRN (Reason: pain) Qty: 10 0RF oxycodone 5 mg tablet 5 mg PO Q6H PRN (Reason: pain) Qty: 14 0RF lidocaine HCl [Aspercreme (lidocaine HCl)] 4 % cream 1 appl topical BID PRN (Reason: pain) Qty: 120 0RF ibuprofen 400 mg tablet 400 mg PO Q6H PRN (Reason: pain) Qty: 20 0RF cholecalciferol (vitamin D3) 25 mcg (1,000 unit) tablet 25 mcg PO DAILY 0RF Tenivac (PF) 5 Lf unit- 2 Lf unit/0.5mL suspension 0.5 ml IM ONCE Qty: 0.5 0RF meloxicam 15 mg tablet 15 mg PO DAILY 30 Days Qty: 30 0RF emtricitabine-tenofovir (TDF) 200-300 mg tablet 1 tab PO DAILY 0RF fluoxetine [Prozac] 10 mg capsule 10 mg PO DAILY 0RF metronidazole 0.75 % gel 1 appful vaginal BEDTIME 5 Days Qty: 37.5 0RF omeprazole 40 mg capsule,delayed release(DR/EC) 40 mg PO DAILY 30 Days Qty: 30 3RF
[2021-03-20] MEDS: LORazepam 2 MG/ML VIAL IM (17:16)
[2021-03-20] MEDS: Haloperidol Lactate 5 MG/ML VIAL IM (17:17)
--- NOTE | 2021-03-20 17:56 | PC.NURSE ---
At 1700 patient was brought to ED POD screaming handcuffed on stretcher escorted by ems personnel and police officers. This nurse atempted to discuss with patient what brought them in and patient was hyperverbal with incoherent thought process. MD at bedside stated to give patient 5mg of haldol and 2mg of ativan im med were given and patient was escorted to [facility]. 1:1 was initiated. Patient then proceeded to undress and verbally threaten staff. Patient was able to be re-directed to room where she was able to ly down and rest. 1:[address] but patient is refusing vitals at this time. Resp are even and unlabored will continue to monitor.
--- NOTE | 2021-03-20 18:01 | PC.NURSE ---
Food and drink were offered to patient, patient declined at this time.
[2021-03-20 18:05] LABS: COVID-19 Test Negative (Negative); IDNOW Serial# 9DD0AD1C
[2021-03-20 18:24] LABS: Glucose, Whole Blood 71 mg/dL (60-115)
--- NOTE | 2021-03-20 18:37 | PC.NURSE ---
Patient resting comfortably in bed vitals are stable 1:[address] Patient referred to n.
[2021-03-20 19:47] LABS: Appearance Urine CLEAR; Color Urine YELLOW; Glucose Urine UA NEG (NEG); Leukocyte Esterase Urine NEG (NEG); Nitrite Urine NEG (NEG); PH 5.5 (5.0-8.0); Specific Gravity - Urine <= 1.005 (1.005-1.025); UACC Culture Trigger NO; Urine Blood TRACE (NEG); Urine Ketones NEG (NEG); Urine Protein NEG (NEG-TRACE)
[2021-03-20 19:50] LABS: MANUAL DIFF FLAG NO
[2021-03-20 19:52] LABS: Basophils Percent Auto 0.2 % (0-2); Eosinophils Percent Auto 0.2 % (0-4); Hematocrit 38.5 % (37.0-47.0); Hemoglobin 13.2 g/dl (12.0-16.0); Imm Gran Abs Auto 0.04 X10*3/uL (0.00-0.03); Imm Gran Pct Auto 0.3 % (0.0-0.4); Lymphocytes Absolute Auto 2.4 X10*3/uL (1.2-4.9); Lymphocytes Percent Auto 18.4 % (20-40); Mean Corpuscular HGB Conc 34.3 g/dl (31.0-35.0); Mean Corpuscular Volume 93.2 fL (80.0-98.0); Mean Platelet Volume 12.9 fL (9.4-12.3); Monocytes Absolute Auto 0.6 X10*3/uL (0.1-1.2); Monocytes Percent Auto 4.8 % (2-11); Neutrophils Absolute Auto 9.9 x10*3/uL (2.0-8.3); Neutrophils Percent Auto 76.1 % (45-73); Platelet Count 152 X10*3/uL (160-400); Red Blood Count 4.13 X10*6/uL (4.20-5.50); Red Cell Distribution Width 13.5 % (11.0-16.0)
[2021-03-20 19:55] LABS: WBC Urine 0 /HPF (0-4)
[2021-03-20 20:03] LABS: Ethanol 104 mg/dL
[2021-03-20 20:05] LABS: Barbiturates, Urine Not Detected (Not Detect); Benzodiazepines Screen Urine Not Detected (Not Detect); Cocaine Screen Urine Not Detected (Not Detect); Fentanyl, urine Not Detected (Not Detect); Opiate Screen Urine Not Detected (Not Detect); Phencyclidine Screen Urine Not Detected (Not Detect)
[2021-03-20 20:08] LABS: Alanine Aminotransferase 23 U/L (0-31); Albumin Level 4.4 g/dL (3.5-5.0); Alkaline Phosphatase 98 U/L (39-117); Anion Gap 15 (12-20); Aspartate Amino Transferase 30 U/L (5-31); Bilirubin Direct 0.2 mg/dL (0.0-0.5); Bilirubin Total 0.5 mg/dL (0.0-1.0); Blood Urea Nitrogen 12 mg/dL (9-16); Calcium 9.6 mg/dL (8.4-10.2); Carbon Dioxide 20 mmol/L (22-29); Chloride 113 mmol/L (96-108); Creatinine Clr Calc Pharmacy 89.3; Estimated Glomerular Filt Rate > 60; Glucose Random 86 mg/dL (60-115); Potassium 3.8 mmol/L (3.3-5.1); Sodium 144 mmol/L (135-145); Total Protein 6.9 g/dL (6.5-8.0)
[2021-03-20 20:10] LABS: Amphetamine Screen Urine Not Detected (Not Detect); Cannabinoid Screen Urine POSITIVE (Not Detect)
[2021-03-21 01:26] VITALS: RESP 16
[2021-03-21 04:50] VITALS: RESP 16
--- NOTE | 2021-03-21 07:27 | MHC.CARE ---
CAREM Team spoke with nursing - Pts assessment was delayed due to medication restraint. CARE Team emailed [facility] intake regarding ETA.
[2021-03-21 07:44] VITALS: RESP 16
--- NOTE | 2021-03-21 10:02 | PC.NURSE ---
BHN in to assess pt at this time.
[2021-03-21 10:31] VITALS: BP 134/67; PULSE 87; RESP 16; TEMP 37.1; O2SAT 97
[2021-03-21] MEDS: LORazepam 1 MG TABLET PO (12:40)
[2021-03-21] MEDS: Nicotine 21 MG PATCH.TD24 TRANSDERMA (12:40)
--- NOTE | 2021-03-21 12:57 | PHA.MEDREC ---
Pharmacy Consult ? Medication Reconciliation Pharmacy has completed the medication reconciliation.
--- NOTE | 2021-03-21 13:08 | MHC.CARE ---
CARE team provided supportive contact for pt who was unaware that she was a section 12 bedsearch. Pt voiced she was not seeking IPLOC and did not understand or have memory of her acute behavior upon arrival. Pt feels the crisis team did not fully interview her and was feeling anxious and upset asking to leave. Pt did calm herself in this interaction and was willing to accept medication and nicotine patch as well as lunch. Pt was tearful at reflecting her recent housing stress and was visibly calm and willing to rest quietly upon exiting. T/w spoke w ED provider about the orders for the above.
--- NOTE | 2021-03-21 17:30 | PC.NURSE ---
Pt sitting in meliu room. Per patient I don't know why I m here, they (event marketing representative) made up me being physical. pt requests that I preform reseach regarding why [facility] made the patient bed search.
[2021-03-21 19:47] VITALS: BP 117/78; PULSE 108; TEMP 36.6; O2SAT 97
[2021-03-21] MEDS: diphenhydrAMINE HCL 25 MG TABLET 50 MG PO (22:36)
--- NOTE | 2021-03-22 00:12 | PC.NURSE ---
ROSS called/spoke with Rick, confirmed patient is on section 12 inpatient bed search with no update on bed search so far,, will continue to monitor.
--- NOTE | 2021-03-22 05:16 | PC.NURSE ---
Addendum entered by Aníbal Zelaya RN 03/22/21 05:21: Disposition per N is section 12 inpatient bed search Original Note: Patient slept though the night, no distress observed/reported, patient received Benadryl 50 mg at 2236 with + effect, VSS, medication compliant, behavior appropriate, disposition per care team is voluntary inpatient bed search, will continue to monitor.
[2021-03-22] MEDS: Omeprazole 40 MG CAPSULE.DR PO (06:25)
[2021-03-22] MEDS: Atorvastatin Calcium 10 MG TABLET PO (08:32)
[2021-03-22] MEDS: Cholecalciferol (Vitamin D3) 25 MCG TABLET PO (08:32)
--- NOTE | 2021-03-22 09:04 | PC.NURSE ---
pt given morning meds as documented, accepted breakfast. pt pleasant, no behavioral issues noted/reported. Pt inquiring about her disposition states that she just got approved for housing and do not want to loose it. Care Team made aware and will follow-up. denies pain, no complaints. pt sitting in common area at this time. will continue to monitor.
--- NOTE | 2021-03-22 12:11 | PC.NURSE ---
pt accepted to [facility], pt made aware by this leader writer and got upset and stated that she feels like she is being held against her will . Care Team made aware and will have someone meet with pt. will continue to monitor.
[2021-03-22 13:06] LABS: COVID-19 Test Negative (Negative)
[2021-03-22 14:00] VITALS: BP 125/81; PULSE 83; RESP 18; O2SAT 98
[2021-03-22 18:40] VITALS: BP 132/85; PULSE 91; TEMP 36.7; O2SAT 96
[2021-03-22 19:26] VITALS: BP 148/85; PULSE 88; RESP 18; TEMP 36.3; O2SAT 99
--- NOTE | 2021-03-22 19:42 | MHC.CARE ---
Pt was accepted for admission to this evening, however pt was not agreeable to signing in on a Conditional Voluntary basis. After consulting with admitting psychiatrist, Mika Parikh, it was determined that based on the crisis evaluation that pt did not present as a candidate for involuntary admission and recommended that more information be obtained regarding the pt's current presentation and level of risk for harm to self or others. This lead technical writer reviewed pt's chart and [facility] crisis evaluation, met with pt for a face to face mental status, and spoke with pt's daughter on the phone. During the encounter, pt was alert and oriented, pleasant on approach, guarded at times, with some psychomotor agitation. Her speech was slightly pressured but with even tone and volume, eye contact was appropriate, and her hygiene and grooming were somewhat disheveled however it is worth noting that she has been in the [facility] for 48 hours. She denied SI/HI/AVH and did not appear to be responding to internal stimuli, nor did she demonstrate any other signs or symptoms of acute psychosis. Her insight, judgment, and impulse control are poor at this time. Pt's daughter, Saranya reported that her only concerns for her mother's wellbeing are regarding her needing weekly mental health support and her alcohol use. Saranya reported that she knows that her mother wouldn't hurt herself or anyone else, but she is worried about how she is coping with everything that she has been going through over the past few years. She confirmed that it is fine for the pt to return to her home this evening and to continue staying with her until her housing situation is resolved. This lead technical writer spoke with pt re: outpatient referrals for PHP and outpatient therapy. She reported that she has been on a wait list for therapy through [facility] for over a year. She is open to attending PHP and for additional outpatient therapy referrals. This lead technical writer will complete referrals for PHP at [facility] and outpatient therapy at [facility]. Pt transported back to her daughter's apartment via Lyft.
== END 2021-03-23 03:26 | disposition home or self-care (01) ==
PROVIDERS: Emergency Provider Emergency Medicine Emergency Medical Services
DX: F23 Brief psychotic disorder (principal); R45.1 Restlessness and agitation; R00.0 Tachycardia, unspecified; Z20.822 Contact with and (suspected) exposure to COVID-19; F41.9 Anxiety disorder, unspecified; F43.10 Post-traumatic stress disorder, unspecified; E78.00 Pure hypercholesterolemia, unspecified; F17.200 Nicotine dependence, unspecified, uncomplicated; F12.90 Cannabis use, unspecified, uncomplicated; Z79.899 Other long term (current) drug therapy; Z79.02 Long term (current) use of antithrombotics/antiplatelets
CPT/HCPCS: 36415; 80048; 80076; 80307; 81001; 82077; 82947; 85025; 87635; 96372; 99285; J2060; Q0163

== ENCOUNTER 2021-03-29 12:07 | Outpatient (REF) | payer OTHER, SELFPAY ==
--- NOTE | ~2021-03-29 | MM_ITS ---
EXAMINATION: MM SCREENING DIGITAL BREAST TOMOSYNTHESIS, BILATERAL CLINICAL INFORMATION: Screening. Asymptomatic. The lifetime risk of breast cancer based on the Tyrer-Cuzick Model is 7%. COMPARISON: Mammography: 02/11/2020, 11/08/2017, 10/07/2016 TECHNIQUE: Digital breast tomosynthesis is performed in both the craniocaudal and mediolateral oblique views along with computer-aided detection (CAD). Synthesized 2D images are generated from the tomosynthesis. FINDINGS: There are scattered areas of fibroglandular density (ACR BI-RADS breast composition Category b). Small smooth nodule anterior 6:00 right breast is stable. There is no interval mass or architectural abnormality or abnormal calcifications. No developing density. Parenchymal pattern is similar to prior studies. Low right axillary tail node is similar to prior exams. The skin contours are smooth. No significant changes. MM/MM tomosynthesis screening BI IMPRESSION: No mammographic evidence of malignancy. ASSESSMENT: BI-RADS 2: Benign RECOMMENDATION: Routine annual mammography screening. This patient's information was entered into a reminder system with a target due date for their next mammogram.
== END 2021-03-29 12:08 | disposition home or self-care (01) ==
LOC: HO.MAMMO 12:07
PROVIDERS: PCP Internal Medicine; Visit Provider Internal Medicine
DX: Z12.31 Encounter for screening mammogram for malignant neoplasm of breast (principal)
CPT/HCPCS: 77063; 77067

== ENCOUNTER 2021-04-14 11:11 | Outpatient (REF) | payer OTHER, SELFPAY ==
--- NOTE | ~2021-04-14 | US_ITS ---
EXAMINATION: US ABDOMEN COMPLETE CLINICAL INFORMATION: GERD. COMPARISON: Ultrasound abdomen complete 05/08/2019. TECHNIQUE: Real-time imaging of the abdominal viscera. FINDINGS: PANCREAS: Normal. ABDOMINAL AORTA: The proximal, mid, and distal segments are normal in caliber. INFERIOR VENA CAVA: Visualized portions are normal. LIVER: The liver is normal in size. The liver contour is normal. There is increased liver echogenicity. No focal hepatic lesion. There is no intrahepatic biliary duct dilatation seen. GALLBLADDER: Gallbladder wall thickness is 0.2 cm. The gallbladder is physiologically distended without evidence of stones, sludge, polyps, wall thickening or pericholecystic fluid. COMMON BILE DUCT: Normal in caliber measuring 0.4 cm in diameter. RIGHT KIDNEY: There is an anechoic cyst with septation midpole measuring 0.8 x 0.7 x 0.9 cm. No hydronephrosis or renal calculi. The kidney measures 9.9 cm in maximum dimension. LEFT KIDNEY: Normal. No hydronephrosis. No renal calculi or focal parenchymal lesions. The kidney measures 10.7 cm in maximum dimension. SPLEEN: Normal. The spleen measures 8.1 cm in maximum dimension. FREE FLUID: None. US/US abdomen complete IMPRESSION: Hepatic steatosis without focal lesion. Anechoic cyst midpole right kidney with septation measures 0.8 x 0.7 x 0.9 cm.
== END 2021-04-14 11:12 | disposition home or self-care (01) ==
LOC: HO.US 11:11
PROVIDERS: PCP Internal Medicine; Visit Provider Nurse Practitioner
DX: R19.7 Diarrhea, unspecified (principal)
CPT/HCPCS: 76700

== ENCOUNTER 2021-04-27 10:55 | Outpatient (REF) | payer OTHER, SELFPAY ==
--- NOTE | ~2021-04-27 | XR_ITS ---
EXAMINATION: XR CHEST CLINICAL INFORMATION: Chest pain COMPARISON: Chest x-ray 06/11/2020 TECHNIQUE: 2 views of the chest were obtained. FINDINGS: The lungs are well-expanded and clear. The heart size and pulmonary vascularity is normal. No gross bony abnormality seen. XR/XR chest 2V IMPRESSION: Unremarkable chest exam.
[2021-04-27 11:38] LABS: MANUAL DIFF FLAG NO
[2021-04-27 12:27] LABS: Estimated Average Glucose 100 mg/dL; Hemoglobin A1c % 5.1 %
[2021-04-27 12:40] LABS: Basophils Percent Auto 0.3 % (0-2); Eosinophils Absolute Auto 0.1 X10*3/uL (0.0-0.4); Hematocrit 43.9 % (37.0-47.0); Hemoglobin 14.5 g/dl (12.0-16.0); Imm Gran Abs Auto 0.02 X10*3/uL (0.00-0.03); Imm Gran Pct Auto 0.3 % (0.0-0.4); Lymphocytes Absolute Auto 2.3 X10*3/uL (1.2-4.9); Lymphocytes Percent Auto 33.6 % (20-40); Mean Corpuscular Volume 96.9 fL (80.0-98.0); Mean Platelet Volume 13.5 fL (9.4-12.3); Monocytes Absolute Auto 0.4 X10*3/uL (0.1-1.2); Monocytes Percent Auto 5.5 % (2-11); Neutrophils Absolute Auto 4.1 x10*3/uL (2.0-8.3); Neutrophils Percent Auto 59.3 % (45-73); Platelet Count 174 X10*3/uL (160-400); Red Blood Count 4.53 X10*6/uL (4.20-5.50); Red Cell Distribution Width 13.9 % (11.0-16.0); White Blood Count 6.9 X10*3/uL (4.8-10.8)
[2021-04-27 12:51] LABS: Alanine Aminotransferase 14 U/L (0-31); Albumin Level 4.5 g/dL (3.5-5.0); Alkaline Phosphatase 83 U/L (39-117); Anion Gap 14 (12-20); Aspartate Amino Transferase 21 U/L (5-31); Bilirubin Total 0.7 mg/dL (0.0-1.0); Blood Urea Nitrogen 13 mg/dL (9-16); Calcium 10.1 mg/dL (8.4-10.2); Carbon Dioxide 24 mmol/L (22-29); Chloride 107 mmol/L (96-108); Cholesterol 255 mg/dL; Estimated Glomerular Filt Rate > 60; Glucose Fasting 107 mg/dL (60-99); HDL Cholesterol 71 mg/dL; LDL Cholesterol Calculated 157 mg/dl; Magnesium 2.1 mg/dL (1.6-2.6); Potassium 4.1 mmol/L (3.3-5.1); Sodium 141 mmol/L (135-145); Total Protein 6.9 g/dL (6.5-8.0); Triglycerides 135 mg/dL
[2021-04-27 13:03] LABS: Troponin-I High Sensitivity < 3.5 ng/L (<3.5-17.0)
[2021-04-27 13:05] LABS: Erythrocyte Sedimentation Rate 2 MM/HR (0-20)
[2021-04-27 13:05] LABS: Appearance Urine HAZY; Color Urine YELLOW; Glucose Urine UA NEG (NEG); Leukocyte Esterase Urine NEG (NEG); Nitrite Urine NEG (NEG); Specific Gravity - Urine 1.025 (1.005-1.025); UACC Culture Trigger NO; Urine Blood TRACE (NEG); Urine Ketones NEG (NEG); Urine Protein NEG (NEG-TRACE)
[2021-04-27 13:15] LABS: TSH reflex Free T4 0.89 uIU/mL (0.32-4.0); Vitamin D 25-OH Total 18.3 ng/mL (>30)
[2021-04-27 13:39] LABS: Folate 6.8 ng/mL (> or = 4.0); Vitamin B12 267 pg/mL (200-900)
[2021-04-27 14:21] LABS: Bacteria Urine TRACE /LPF; Mucus Urine 2+ /LPF; RBC Urine 0-2 /HPF (0); Squamous Epithelial Cell Urine 1+ /LPF; WBC Urine 0-2 /HPF (0-4)
== END 2021-04-27 10:56 | disposition home or self-care (01) ==
LOC: HO.XRAY 10:55
PROVIDERS: PCP Internal Medicine; Visit Provider Internal Medicine
DX: Z00.00 Encounter for general adult medical examination without abnormal findings (principal); R07.9 Chest pain, unspecified; E55.9 Vitamin D deficiency, unspecified; R20.2 Paresthesia of skin; E78.00 Pure hypercholesterolemia, unspecified; R73.01 Impaired fasting glucose
CPT/HCPCS: 36415; 71046; 80053; 80061; 81001; 81003; 82306; 82607; 82746; 83036; 83735; 84443; 84484; 85025; 85652

== ENCOUNTER 2021-08-02 14:03 | Outpatient (REF) | payer OTHER, SELFPAY ==
--- NOTE | ~2021-08-02 | FL_ITS ---
EXAMINATION: XR BARIUM SWALLOW CLINICAL INFORMATION: Dysphagia COMPARISON: None TECHNIQUE: Fluoroscopy guidance was provided for modified barium swallow performed by the speech and hearing department. Patient was given liquid barium and various food media mixed with barium. FINDINGS: No aspiration or penetration is seen. See speech and hearing department for detailed findings. FLUOROSCOPY TIME: 0.7 minutes DOSE AREA PRODUCT: 0.6 vela per centimeter squared. FL/FL barium swallow modified IMPRESSION: Fluoroscopy guidance for modified barium swallow.
--- NOTE | 2021-08-02 16:33 | MHC.SL.IMP ---
Date of Plan of Treatment: 08/02/21 Onset of Symptoms/Illness: 08/02/20 Date Treatment Started: 08/02/21 Past Medical History: Abdominal pain Ankle pain left Anxiety and depression Arthralgia Cellulitis of right ring finger Thrombocytopenia Carpal tunnel syndrome on both sides Degenerative disc disease thoracolumbar Degenerative arthritis Degenerative disc disease cervical Fibromyalgia Impaired fasting glucose Insomnia Left hip pain Lumbar radiculopathy Mild stress incontinence Overweight Posttraumatic stress disorder Pure Hypercholesterolemia Smoker Thrombocytopenia Vitamin D deficiency Surgical History: History of hip surgery History of tubal ligation Primary Speech & Language Diagnosis: R13.12 Oropharyngeal Phase Dysphagia Reason for Today's Visit: 33698 Modified Barium Swallow Study Pre-evaluation Dietary Consistencies: Regular Pre-evaluation Liquid Consistency: Thin Pre-evaluation Medication Administration: Whole with Liquid Medical History: Modified Barium Swallow Study Fluoroscopic Evaluation of Swallowing Function CPT Code 28701 Evaluation Year: 2021 Reason for Study: Patient reports difficulty swallowing. Referring Physician: Barbara Caba NP Evaluating Clinician: Silvana Rose MA, CCC-[facility] Study Number: 1 Patient Name: Nisreen Valera Status: Outpatient, Ambulatory Age: 50 Gender: Female Current (pre-evaluation) Intake/Diet: Route: PO Diet Grade: Regular Liquid Consistencies: Thin Pre-Study Functional Oral Intake Scale (FOIS): 7- Total oral intake with no restrictions Pain: None reported at time of study SUBJECTIVE: Patient is a 50 year old female referred for a modified barium swallow study by Barbara BARRAGAN of [facility]. During her appointment with G.I., patient reported sensitive stomach with bloating, diarrhea, vocal hoarseness, and odynophagia. Per G.I. notes, patient stated that when she tries to sip on coffee, it feels like her throat is closed and she has to spit it back up. When seen by [facility] today, patient reported similar complaints. Patient reported that when she is drinking coffee in the morning, she often has to cough and spit it back up after taking 3-4 sips. She also reports feeling like her throat is being scraped when she swallows meat and for that reason she has to cut meat into small pieces. Patient states that her throat feels tender to the touch as well. Patient denied globus sensation and states she has no pain when she swallows, but does feel burning in her throat when she is spitting coffee back up. Patient reports onset of dysphagia over a year ago. Most recent chest x-ray from 04/27/21 was unremarkable. Is patient able to manage secretions?: Yes Food and Liquid Trials: Oral Impairment: Lip Closure: 0=No labial escape Oral Impairment: Tongue Control During Bolus Hold: 0=Cohesive bolus between tongue to palatal seal Oral Impairment: Bolus Preparation/Mastication: 0=Timely and efficient chewing and mashing Oral Impairment: Bolus Transport/Lingual Motion: 0=Brisk tongue motion Oral Impairment: Oral Residue: 0=Complete oral clearance Oral Impairment:Initiation of Pharyngeal Swallow: 0=Bolus head at posterior angle of ramus (first hyoid excursion) Pharyngeal Impairment: Soft Palate Elevation: 0=No bolus between soft palate (SP)/pharyngeal wall (PW) Pharyngeal Impairment: Laryngeal Elevation: 0=Complete superior movement of thyroid cartilage (see description) Pharyngeal Impairment: Anterior Hyoid Excursion: 0=Complete anterior movement Pharyngeal Impairment: Epiglottic Movement: 0=Complete inversion Pharyngeal Impairment: Laryngeal Vestibular Closure:: 0=Complete: no air/contrast in laryngeal vestibule Pharyngeal Impairment: Pharyngeal Stripping Wave: 0=Present: complete Pharyngeal Impairment: Pharyngeal Contraction: Did not test Pharyngeal Impairment: Pharyngoesophageal Segment Openin=Complete distension and complete duration: no obstruction of flow Pharyngeal Impairment: Tongue Base (TB) Retraction: 2=Narrow column of contrast/air between TB and posterior PW Pharyngeal Impairment: Pharyngeal Residue: 0=Complete pharyngeal clearance Pharyngeal Impairment: Esophageal Clearance Upright Position: Did not test Impressions and Recommendations Clinical Observations: OBJECTIVE: Time-out: performed at 2:40 Evaluation Start: 2:30; Stop: 2:35 Patient Positioning: Standing Viewing Planes: LATERAL ONLY Contrast: MBSImP? Standardized Protocol using commercially prepared, standardized Barium viscosities, including: Varibar? THIN LIQUID (40% w/v, <15 cps) , 1/2 Shortbread Cookie (1 x1 x.25 ) MBSImP ID: [id number] MBSImP Results: Lip closure for intraoral bolus containment resulted in no labial escape. Tongue control during bolus hold maintained a cohesive bolus held between tongue to palate seal. Bolus preparation and mastication resulted in timely and efficient chewing and mashing. Bolus transport/lingual motion was with brisk tongue motion. Oral residue was not observed. There was complete oral clearance. Initiation of the pharyngeal swallow occurred as the bolus head reached the posterior angle of the mandibular ramus. Soft palate elevation resulted in no bolus between the soft palate and the pharyngeal wall. Laryngeal elevation demonstrated complete superior movement of the thyroid cartilage with complete approximation of the arytenoids to the epiglottic petiole. Anterior hyoid excursion demonstrated complete anterior movement. Epiglottic movement resulted in complete inversion. Laryngeal vestibular closure was complete, as indicated by no air or contrast within the laryngeal vestibule at the height of the swallow. Pharyngeal stripping wave was present and complete. Pharyngeal contraction could not be determined due to logistical reasons not related to physiologic impairment. Pharyngoesophageal segment opening was completely distended for complete duration with no obstruction of bolus flow. Tongue base retraction allowed a narrow column of contrast or air between the retracted tongue base and the posterior pharyngeal wall. Pharyngeal residue was not present. There was complete pharyngeal clearance. Esophageal clearance in the upright position could not be assessed due to logistical reasons not related to physiologic impairment. Oral Impairment Score: 0 Pharyngeal Impairment Score: 2 (absence of score, component 13) Esophageal Impairment Score: --- (absence of score, component 17) Laryngeal Penetration and Aspiration: Neither penetration nor aspiration was observed in today's study with Cookie, Thin. ASSESSMENT: Clinician Assessment: This exam was conducted by a multidisciplinary team, which included a speech pathologist, radiologist, and critical care technician. Patient was standing for lateral view only. Patient trialed the following liquid and solid consistencies: 5 mL thin liquid barium, individual cup sip thin liquid barium with instructions for bolus hold, consecutive cup sips thin liquid barium, pureed solid (mixture applesauce with barium paste), ground solid (mixture chicken salad with barium paste), regular solid (Roma Doone cookie coated with barium paste), barium tablet swallowed with sips of thin liquid barium. Good lip closure, with no escape of bolus into interlabial space. Good tongue control with no premature posterior escape of bolus. Patient maintained cohesive bolus between tongue to palatal seal. Mastication was timely and efficient, with brisk posterior lingual motion for transport of bolus. Complete oral clearance. Pharyngeal swallow trigger was timely, initiated as bolus head reached posterior angle of ramus. There was no nasopharyngeal reflux. Laryngeal elevation was complete, with complete anterior hyoid excursion and complete epiglottic inversion. Complete laryngeal vestibular closure. There was no evidence of aspiration or penetration during this exam. Complete pharyngeal clearance. No obstruction of flow through pharyngoesophageal segment opening. When swallowing barium pill tablet, there was brief hang up of pill in valleculae, which cleared with subsequent sip of thin liquid barium. Liquid Intake Recommendation: Thin Liquid Intake Strategies: Unrestricted Dietary Recommendations: Regular Medication Administration: Whole with Liquid Please contact the pharmacy regarding appropriate crushable or liquid drug formulations that are available whenever modified delivery is recommended. Compensatory Strategies Recommended: Sitting Upright (90 deg) Small Bites and Sips Rate of Ingestion Change Supervision during eating and or drinking: None Needed Recommendation for Speech Therapy: NA:Typical Evaluation Text Comment: PLAN: Intake Recommendations: Route: PO Diet Grade: Regular Liquid Consistencies: Thin Post-Study Functional Oral Intake Scale (FOIS): 7- Total oral intake with no restrictions There was no evidence of aspiration or penetration with solids and liquids. Good oral and pharyngeal clearance. This exam was unremarkable. Suggested Referrals: The patient might benefit from a referral to: Gastroenterology Indication for Referral: Further workup Otolaryngology Indication for Referral: Throat tenderness, vocal hoarseness (Follow w/ speech therapy for hoarseness) Therapy Recommendations: Therapy will be discontinued Prognosis for Improvement: The prognosis for the patient to meet nutritional needs by mouth is excellent based on degree of impairment. Clinician - Supplemental, Miscellaneous Communication: It is important to note MBSS objective studies are snapshots in time and Patient function might vary with factors such as time of day or concomitant medical conditions. For this reason, the final treatment plan for this patient should rest with their medical care team. Additional recommendations should be considered with the totality of the Patient in mind. Thank for the opportunity to participate in the care of this patient. If you have any questions about the content of this report, please contact the [facility] at [facility]. Education: Education regarding findings from today's study and plans for therapy were provided to Patient only through Verbal Instruction. Understanding was expressed by the Patient only. Scientific Director Clinician/Clinical Fellow: No Supervisory Statement: N/A Speech Language Pathologist: Silvana Rose M.A., CCC-[facility]
== END 2021-08-02 14:04 | disposition home or self-care (01) ==
LOC: HO.XRAY 14:03
PROVIDERS: Visit Provider Nurse Practitioner
DX: R13.12 Dysphagia, oropharyngeal phase (principal)
CPT/HCPCS: 74230; 92611

== ENCOUNTER → 2021-08-06 07:14 | Outpatient (REF) | payer OTHER, SELFPAY ==
--- NOTE | 2021-08-06 08:42 | CA_ITS ---
Acquisition Time: 2021-08-06 08:04:52 Total Exercise Time: 00:07:39 Test Indications: Dyspnea Medications: Protocol: LUCRETIA Max HR: 146 BPM 86% of Pred: 168 BPM Max BP: 154/070 mmHG Max Work Load: 9.5 METS Exercise stress test with exercise 7 min 39 sec of Lucretia protocol, achieving 86% MPHR, 9.4 METs with report of anxiety and a tightness in chest prior to exercise with no significant change with exercise, with report of left arm feeling weak during exercise and into recovery, with mild sob, without arrythmia, with normotensive response to exercise, without EKG changes meeting criteria for ischemia. Test reviewed with Dr Bhatt. Referred By: Andreas Christensen Overread By: SHAYY RANDHAWA
== END ==
LOC: HO.CARD 07:14
PROVIDERS: PCP Internal Medicine; Visit Provider Internal Medicine
DX: Z13.89 Encounter for screening for other disorder (principal)
CPT/HCPCS: 93017

== ENCOUNTER 2021-08-19 08:38 | Outpatient (REF) | payer OTHER, SELFPAY ==
[2021-08-28 08:31] LABS: HPV 16 RNA NOT DETECTED (NOT DETECTED); HPV mRNA E6/E7 rflx Detected (Not Detected)
== END 2021-08-19 08:39 | disposition home or self-care (01) ==
LOC: HO.LAB 08:38
PROVIDERS: Visit Provider Obstetrics & Gynecology
DX: Z01.419 Encounter for gynecological examination (general) (routine) without abnormal findings (principal); E78.00 Pure hypercholesterolemia, unspecified; E55.9 Vitamin D deficiency, unspecified; Z11.4 Encounter for screening for human immunodeficiency virus [HIV]
CPT/HCPCS: 87624; 87625; 88142

== ENCOUNTER 2021-08-19 08:39 | Outpatient (REF) | payer OTHER, SELFPAY ==
[2021-08-19 09:35] LABS: Alanine Aminotransferase 21 U/L (0-31); Albumin Level 4.5 g/dL (3.5-5.0); Alkaline Phosphatase 103 U/L (39-117); Anion Gap 11 (12-20); Aspartate Amino Transferase 26 U/L (5-31); Bilirubin Total 0.7 mg/dL (0.0-1.0); Blood Urea Nitrogen 17 mg/dL (9-16); Calcium 9.3 mg/dL (8.4-10.2); Carbon Dioxide 26 mmol/L (22-29); Chloride 109 mmol/L (96-108); Cholesterol 236 mg/dL; Estimated Glomerular Filt Rate > 60; Glucose Fasting 101 mg/dL (60-99); HDL Cholesterol 66 mg/dL; LDL Cholesterol Calculated 141 mg/dl; Potassium 4.3 mmol/L (3.3-5.1); Sodium 142 mmol/L (135-145); Total Protein 6.8 g/dL (6.5-8.0); Triglycerides 149 mg/dL
[2021-08-19 09:57] LABS: Vitamin D 25-OH Total 22.9 ng/mL (>30)
[2021-08-19 10:02] LABS: HIV AB/AG Nonreactive (Nonreactive); HIV Num 1 0.08 S/CO (0.00-0.99)
== END 2021-08-19 08:40 | disposition home or self-care (01) ==
LOC: HO.LAB 08:39
PROVIDERS: PCP Internal Medicine; Visit Provider Obstetrics & Gynecology
DX: Z01.419 Encounter for gynecological examination (general) (routine) without abnormal findings (principal); E78.00 Pure hypercholesterolemia, unspecified; E55.9 Vitamin D deficiency, unspecified; Z11.4 Encounter for screening for human immunodeficiency virus [HIV]; Z11.51 Encounter for screening for human papillomavirus (HPV)
CPT/HCPCS: 36415; 80053; 80061; 82306; 87389

== ENCOUNTER 2021-09-09 10:58 | Outpatient (REF) | payer OTHER, SELFPAY ==
[2021-09-09 11:43] LABS: COVID-19 Test Negative (Negative)
== END 2021-09-09 10:59 | disposition home or self-care (01) ==
LOC: HO.LAB 10:58
PROVIDERS: Visit Provider Internal Medicine
DX: Z20.822 Contact with and (suspected) exposure to COVID-19 (principal)
CPT/HCPCS: 87635; C9803

== ENCOUNTER 2021-09-13 14:40 | Outpatient (REF) | payer OTHER, SELFPAY | END 2021-09-13 14:41 | disposition home or self-care (01) | LOC: HO.LAB 14:40 | PROVIDERS: PCP Internal Medicine; Visit Provider Obstetrics & Gynecology | DX: Z32.02 Encounter for pregnancy test, result negative (principal); B97.7 Papillomavirus as the cause of diseases classified elsewhere | CPT/HCPCS: 57421; 57454; 81025; 88305; 88342; 88360 ==

== ENCOUNTER → 2021-10-06 14:53 | Outpatient (BNVA) | payer OTHER, SELFPAY | PROVIDERS: PCP Internal Medicine; Visit Provider Obstetrics & Gynecology | DX: B97.7 Papillomavirus as the cause of diseases classified elsewhere (principal) | CPT/HCPCS: 99212 ==

== ENCOUNTER → 2021-10-27 09:55 | Outpatient (BNVA) | payer OTHER, SELFPAY | PROVIDERS: PCP Internal Medicine; Referring Provider Internal Medicine; Visit Provider Internal Medicine | DX: R07.2 Precordial pain (principal); R06.02 Shortness of breath | CPT/HCPCS: 93005; 99202 ==

== ENCOUNTER 2021-12-16 13:53 | Outpatient (REF) | payer OTHER, SELFPAY ==
[2021-12-17 03:57] LABS: CT PCR NOT DETECTED (Not Detect.); NG PCR NOT DETECTED (Not Detect.)
[2021-12-17 11:15] LABS: BV Int Neg Control Negative (Negative); BV Int Pos Control Positive (Positive)
== END 2021-12-16 13:54 | disposition home or self-care (01) ==
LOC: HO.LNP 13:53
PROVIDERS: Visit Provider Obstetrics & Gynecology
DX: Z11.3 Encounter for screening for infections with a predominantly sexual mode of transmission (principal); R10.2 Pelvic and perineal pain
CPT/HCPCS: 87480; 87491; 87510; 87591; 87660; 99212

== ENCOUNTER 2022-01-15 19:08 | Emergency (ER) | payer OTHER, SELFPAY ==
--- NOTE | ~2022-01-15 | XR_ITS ---
EXAMINATION: XR CHEST CLINICAL INFORMATION: Cough COMPARISON: Chest x-ray 04/27/2021 TECHNIQUE: 2 views of the chest were obtained. FINDINGS: The lungs are clear. No airspace consolidation, pleural effusion, or pneumothorax. The cardiomediastinal silhouette is within normal limits. No acute osseous injury. Mild disc degenerative change in the mid thoracic spine. XR/XR chest 2V IMPRESSION: No acute pulmonary process.
[2022-01-15 19:32] VITALS: BP 142/97; PULSE 92; RESP 18; TEMP 36.6; O2SAT 100; BMI 25.8
--- NOTE | 2022-01-15 19:32 | ED.GENADULT ---
HPI - General Adult General Chief complaint: Upper Respiratory Symptoms Stated complaint: Blood in stool/Cough Related Data Home Medications Medication Instructions Recorded Confirmed ibuprofen 800 mg tablet 800 mg PO Q8H PRN pain 04/27/21 10/27/21 Previous Rx's Medication Instructions Recorded cholecalciferol (vitamin D3) 25 25 mcg PO DAILY #30 tabs 07/08/21 mcg (1,000 unit) tablet omeprazole 40 mg capsule,delayed 40 mg PO DAILY #90 caps 10/22/21 release simvastatin 20 mg tablet 20 mg PO BEDTIME #90 tabs 10/22/21 metronidazole 500 mg tablet 500 mg PO BID 7 days #14 tabs 12/20/21 Allergies Allergy/AdvReac Type Severity Reaction Status Date / Time No Known Allergies Allergy Verified 01/15/22 19:37 [No Known Allergies*] [facility] Past Medical History Medical History Abdominal pain Ankle pain, left Anxiety and depression Arthralgia Carpal tunnel syndrome on both sides Cellulitis of right ring finger DDD (degenerative disc disease), thoracolumbar Degenerative arthritis Degenerative disc disease, cervical Fibromyalgia Impaired fasting glucose Insomnia Left hip pain Lumbar radiculopathy Mild stress incontinence Overweight (BMI 25.0-29.9) Posttraumatic stress disorder Pure hypercholesterolemia Smoker Thrombocytopenia Vitamin D deficiency Surgical History History of hip surgery History of tubal ligation Family History Family History Father Diabetes Hypertension Mother Diabetes Hypertension Maternal Grandmother Renal disease Daughter Depression with anxiety Son Depression with anxiety Social History Social History Housing: House Alcohol intake: current Alcohol intake frequency: 0-2 drinks per day Alcohol type: beer Patient Tobacco Use Status: Current everyday Tobacco user Cigarettes Per Day: 5 Second Hand Smoke Exposure: Yes Substance Use Type: Marijuana Advance Directives: No Advance Directives Information Provided: No Advance Directives Date on File: 12/02/19 service: No Current occupational status: disabled Cognitive needs: No Hearing needs: No Vision needs: Yes Physical Exam ED Vital Signs: Vital Signs - 24 hr 01/15/22 19:32 Temperature 97.9 F Pulse Rate 92 Respiratory Rate 18 Blood Pressure 142/97 H Pulse Oximetry 100 Oxygen Delivery Method Room Air BMI result Body Mass Index 25.8 Course Course Course Narrative: This is a rapid medical exam. Deferred HPI, PE, ROS to primary provider. 51 yo female here with one week of night sweats, sore throat, cough. Also one month of blood in stools with no abdominal pain, vomiting. Will need labs, CXR, testing for flu, covid, rsv. VSS Medical Decision Making Lab Data Result diagrams: 01/15/22 19:37 01/15/22 19:37 Labs: Lab Results 01/15/22 01/15/22 01/15/22 Range/Units 19:37 19:37 19:37 WBC 9.1 (4.8-10.8) X10*3/uL RBC 4.04 L (4.20-5.50) X10*6/uL Hgb 13.2 (12.0-16.0) g/dl Hct 38.7 (37.0-47.0) % MCV 95.8 (80.0-98.0) fL MCH 32.7 (27.0-33.0) pg MCHC 34.1 (31.0-35.0) g/dl RDW 14.0 (11.0-16.0) % Plt Count 188 (160-400) X10*3/uL MPV 12.7 H (9.4-12.3) fL Immature Gran % (Auto) 0.2 (0.0-0.4) % Neut % (Auto) 54.9 (45-73) % Lymph % (Auto) 38.3 (20-40) % Traill % (Auto) 5.2 (2-11) % Eos % (Auto) 0.8 (0-4) % Baso % (Auto) 0.6 (0-2) % Lymph # (Auto) 3.5 (1.2-4.9) X10*3/uL Traill # (Auto) 0.5 (0.1-1.2) X10*3/uL Eos # (Auto) 0.1 (0.0-0.4) X10*3/uL Baso # (Auto) 0.1 (0.0-0.2) X10*3/uL Abs Immat Gran (auto) 0.02 (0.00-0.03) X10*3/uL Absolute Neuts (auto) 5.0 (2.0-8.3) x10*3/uL Absolute Nucleated RBC 0.000 (0.0-0.012) X10*3/uL Nucleated RBC % (auto) 0.0 (0.0-0.2) /100WBC PT 10.2 (10.0-13.1) SEC INR 0.9 (0.9-1.1) Sodium 135 (135-145) mmol/L Potassium 3.8 (3.3-5.1) mmol/L Chloride 106 (96-108) mmol/L Carbon Dioxide 19 L (22-29) mmol/L Anion Gap 14 (12-20) BUN 15 (9-16) mg/dL Creatinine 0.77 (0.5-1.4) mg/dL Estim Creat Clear Calc 89.2 Estimated GFR > 60 Random Glucose 101 (60-115) mg/dL Calcium 9.0 (8.4-10.2) mg/dL Total Bilirubin 0.3 (0.0-1.0) mg/dL Direct Bilirubin < 0.2 (0.0-0.5) mg/dL AST 41 H (5-31) U/L ALT 20 (0-31) U/L Alkaline Phosphatase 124 H (39-117) U/L Total Protein 6.4 L (6.5-8.0) g/dL Albumin 4.2 (3.5-5.0) g/dL Influenza Type A (PCR) (Negative) Influenza Type B (PCR) (Negative) RSV RNA Qual (PCR) (Negative) SARS-CoV-2 RNA (RT-PCR) (Negative) 01/15/22 Range/Units 19:37 WBC (4.8-10.8) X10*3/uL RBC (4.20-5.50) X10*6/uL Hgb (12.0-16.0) g/dl Hct (37.0-47.0) % MCV (80.0-98.0) fL MCH (27.0-33.0) pg MCHC (31.0-35.0) g/dl RDW (11.0-16.0) % Plt Count (160-400) X10*3/uL MPV (9.4-12.3) fL Immature Gran % (Auto) (0.0-0.4) % Neut % (Auto) (45-73) % Lymph % (Auto) (20-40) % Traill % (Auto) (2-11) % Eos % (Auto) (0-4) % Baso % (Auto) (0-2) % Lymph # (Auto) (1.2-4.9) X10*3/uL Traill # (Auto) (0.1-1.2) X10*3/uL Eos # (Auto) (0.0-0.4) X10*3/uL Baso # (Auto) (0.0-0.2) X10*3/uL Abs Immat Gran (auto) (0.00-0.03) X10*3/uL Absolute Neuts (auto) (2.0-8.3) x10*3/uL Absolute Nucleated RBC (0.0-0.012) X10*3/uL Nucleated RBC % (auto) (0.0-0.2) /100WBC PT (10.0-13.1) SEC INR (0.9-1.1) Sodium (135-145) mmol/L Potassium (3.3-5.1) mmol/L Chloride (96-108) mmol/L Carbon Dioxide (22-29) mmol/L Anion Gap (12-20) BUN (9-16) mg/dL Creatinine (0.5-1.4) mg/dL Estim Creat Clear Calc Estimated GFR Random Glucose (60-115) mg/dL Calcium (8.4-10.2) mg/dL Total Bilirubin (0.0-1.0) mg/dL Direct Bilirubin (0.0-0.5) mg/dL AST (5-31) U/L ALT (0-31) U/L Alkaline Phosphatase (39-117) U/L Total Protein (6.5-8.0) g/dL Albumin (3.5-5.0) g/dL Influenza Type A (PCR) NEGATIVE (Negative) Influenza Type B (PCR) NEGATIVE (Negative) RSV RNA Qual (PCR) POSITIVE A (Negative) SARS-CoV-2 RNA (RT-PCR) NEGATIVE (Negative) Discharge Plan Discharge Clinical Impression: Viral infection Patient Disposition: Elopement Prescriptions: No Action cholecalciferol (vitamin D3) 25 mcg (1,000 unit) tablet 25 mcg PO DAILY Qty: 30 1RF simvastatin 20 mg tablet 20 mg PO BEDTIME Qty: 90 1RF omeprazole 40 mg capsule,delayed release(DR/EC) 40 mg PO DAILY Qty: 90 1RF metronidazole 500 mg tablet 500 mg PO BID 7 Days Qty: 14 0RF Rx Instructions: Take with food, Avoid alcohol and vinegar products ibuprofen 800 mg tablet 800 mg PO Q8H PRN (Reason: pain) Discharge Date/Time: 01/15/22 22:24
[2022-01-15 19:48] LABS: MANUAL DIFF FLAG NO
[2022-01-15 19:49] LABS: Basophils Absolute Auto 0.1 X10*3/uL (0.0-0.2); Basophils Percent Auto 0.6 % (0-2); Eosinophils Absolute Auto 0.1 X10*3/uL (0.0-0.4); Eosinophils Percent Auto 0.8 % (0-4); Hematocrit 38.7 % (37.0-47.0); Hemoglobin 13.2 g/dl (12.0-16.0); Imm Gran Abs Auto 0.02 X10*3/uL (0.00-0.03); Imm Gran Pct Auto 0.2 % (0.0-0.4); Lymphocytes Absolute Auto 3.5 X10*3/uL (1.2-4.9); Lymphocytes Percent Auto 38.3 % (20-40); Mean Corpuscular HGB Conc 34.1 g/dl (31.0-35.0); Mean Corpuscular Hemoglobin 32.7 pg (27.0-33.0); Mean Corpuscular Volume 95.8 fL (80.0-98.0); Mean Platelet Volume 12.7 fL (9.4-12.3); Monocytes Absolute Auto 0.5 X10*3/uL (0.1-1.2); Monocytes Percent Auto 5.2 % (2-11); Neutrophils Percent Auto 54.9 % (45-73); Platelet Count 188 X10*3/uL (160-400); Red Blood Count 4.04 X10*6/uL (4.20-5.50); White Blood Count 9.1 X10*3/uL (4.8-10.8)
[2022-01-15 19:56] LABS: INTERNATIONAL NORM RATIO 0.9 (0.9-1.1); Prothrombin Time 10.2 SEC (10.0-13.1)
[2022-01-15 20:05] LABS: Alanine Aminotransferase 20 U/L (0-31); Albumin Level 4.2 g/dL (3.5-5.0); Alkaline Phosphatase 124 U/L (39-117); Anion Gap 14 (12-20); Aspartate Amino Transferase 41 U/L (5-31); Bilirubin Direct < 0.2 mg/dL (0.0-0.5); Bilirubin Total 0.3 mg/dL (0.0-1.0); Blood Urea Nitrogen 15 mg/dL (9-16); Carbon Dioxide 19 mmol/L (22-29); Chloride 106 mmol/L (96-108); Creatinine Clr Calc Pharmacy 89.2; Estimated Glomerular Filt Rate > 60; Glucose Random 101 mg/dL (60-115); Potassium 3.8 mmol/L (3.3-5.1); Sodium 135 mmol/L (135-145); Total Protein 6.4 g/dL (6.5-8.0)
[2022-01-15 20:41] LABS: Influenza A PCR NEGATIVE (Negative); Influenza B PCR NEGATIVE (Negative); Resp Syncy Virus RNA Qual PCR POSITIVE (Negative); SARS COV2 PCR INHOUSE NEGATIVE (Negative)
== END 2022-01-15 22:24 | disposition left against medical advice (07) ==
LOC: HO.ED 22:24
PROVIDERS: Nurse Practitioner Family; Emergency Provider Emergency Medicine; PCP Internal Medicine
DX: B34.9 Viral infection, unspecified (principal); B97.4 Respiratory syncytial virus as the cause of diseases classified elsewhere
CPT/HCPCS: 0241U; 36415; 71046; 80048; 80076; 85025; 85610; 99282; 99283

== ENCOUNTER 2022-01-28 13:44 | Outpatient (REF) | payer OTHER, SELFPAY ==
--- NOTE | ~2022-01-28 | US_ITS ---
EXAMINATION: US PELVIS CLINICAL INFORMATION: Pelvic and perineal pain COMPARISON: Ultrasound abdomen complete 04/14/2021 and ultrasound pelvis 05/19/2020. TECHNIQUE: Ultrasound of the pelvis is performed using both transabdominal and transvaginal transducers along with Doppler. Transvaginal imaging is performed due to inadequate visualization transabdominally. FINDINGS: Uterus: The uterus is anteverted, anteflexed and measures 5.8 x 2.9 x 4.1 cm The double wall endometrial thickness is 0.29 cm. The uterus is smooth in contour and has normal myometrial echogenicity. No visible fibroid. Adnexa: Both ovaries are visualized. There is normal color flow to the adnexa. There is no ovarian torsion. There is no pelvic ascites or fluid collection. Right ovary measures 2.3 x 1.2 x 1.3 cm. Volume 1.9 mL. No focal lesion seen. Previously right ovary measured 2.2 x 1.8 x 1.0 cm Left ovary measures 1.7 x 1.1 x 1.0 cm and volume 1.0 mL. Previously left ovary measured 2.2 x 1.4 x 1.3 cm. There are prominent vessels in the left adnexa. There is no free fluid in the cul-de-sac. US/US pelvic and transvaginal IMPRESSION: 1. Unremarkable uterus. 2. The ovaries are unremarkable. 3. There are prominent dilated vessels in the left adnexa.
== END 2022-01-28 13:45 | disposition home or self-care (01) ==
LOC: HO.US 13:44
PROVIDERS: Visit Provider Obstetrics & Gynecology
DX: R10.2 Pelvic and perineal pain (principal)
CPT/HCPCS: 76830; 76856

== ENCOUNTER 2022-02-10 02:05 | Emergency (ER) | payer OTHER, SELFPAY ==
--- NOTE | 2022-02-10 | ECG_ITS ---
Test Reason : CHEST PAIN Blood Pressure : / mmHG Vent. Rate : 083 BPM Atrial Rate : 083 BPM P-R Int : 152 ms QRS Dur : 074 ms QT Int : 380 ms P-R-T Axes : 035 033 037 degrees QTc Int : 446 ms Normal sinus rhythm Normal ECG When compared with ECG of 01-MAR-2020 12:59, No significant change was found Referred By: Generic ED Physician Electronically Signed By:JEFF TURNER MD
--- NOTE | ~2022-02-10 | XR_ITS ---
EXAMINATION: XR CHEST CLINICAL INFORMATION: Chest pain COMPARISON: 01/15/2022 TECHNIQUE: 2 views of the chest were obtained. FINDINGS: No significant abnormality is noted involving the heart, lungs, mediastinum, bony thorax or soft tissues. XR/XR chest 2V IMPRESSION: Unremarkable examination.
[2022-02-10 02:18] VITALS: BP 139/91; PULSE 84; RESP 18; TEMP 36.8; O2SAT 96; BMI 26.9
[2022-02-10 02:42] LABS: MANUAL DIFF FLAG NO
[2022-02-10 02:44] LABS: Basophils Absolute Auto 0.1 X10*3/uL (0.0-0.2); Basophils Percent Auto 0.8 % (0-2); Eosinophils Absolute Auto 0.1 X10*3/uL (0.0-0.4); Eosinophils Percent Auto 1.1 % (0-4); Hematocrit 37.9 % (37.0-47.0); Hemoglobin 12.5 g/dl (12.0-16.0); Imm Gran Abs Auto 0.03 X10*3/uL (0.00-0.03); Imm Gran Pct Auto 0.3 % (0.0-0.4); Lymphocytes Absolute Auto 4.3 X10*3/uL (1.2-4.9); Lymphocytes Percent Auto 46.8 % (20-40); Mean Corpuscular Hemoglobin 32.2 pg (27.0-33.0); Mean Corpuscular Volume 97.7 fL (80.0-98.0); Mean Platelet Volume 12.3 fL (9.4-12.3); Monocytes Absolute Auto 0.5 X10*3/uL (0.1-1.2); Monocytes Percent Auto 5.4 % (2-11); Neutrophils Absolute Auto 4.2 x10*3/uL (2.0-8.3); Neutrophils Percent Auto 45.6 % (45-73); Platelet Count 193 X10*3/uL (160-400); Red Blood Count 3.88 X10*6/uL (4.20-5.50); Red Cell Distribution Width 13.6 % (11.0-16.0); White Blood Count 9.1 X10*3/uL (4.8-10.8)
[2022-02-10 02:52] LABS: D Dimer High Sensitivity 185 NG/ML
[2022-02-10 03:03] LABS: Anion Gap 11 (12-20); Blood Urea Nitrogen 13 mg/dL (9-16); Calcium 8.9 mg/dL (8.4-10.2); Carbon Dioxide 25 mmol/L (22-29); Chloride 111 mmol/L (96-108); Creatinine Clr Calc Pharmacy 83.3; Estimated Glomerular Filt Rate > 60; Glucose Random 103 mg/dL (60-115); Potassium 4.3 mmol/L (3.3-5.1); Sodium 143 mmol/L (135-145)
[2022-02-10 03:06] LABS: Troponin-I High Sensitivity < 3.5 ng/L (<3.5-17.0)
[2022-02-10 03:28] VITALS: BP 128/81; PULSE 74; RESP 13; O2SAT 99
--- NOTE | 2022-02-10 04:22 | PC.NURSE ---
this rn assumed care of pt @ 0328. pt brought back to room. ambulated independently. VSS. pt reports 8/10 pain. pt changed over to hospital gown and placed on cardiac monitor technician. awaiting to be seen by ed provider
[2022-02-10] MEDS: Ibuprofen 800 MG TABLET PO (04:57)
--- NOTE | 2022-02-10 05:00 | PC.NURSE ---
pt medicated according to mar. pt resting comfortably on stretcher at this time. no new requests at this time
--- NOTE | 2022-02-10 05:09 | ED_ITS ---
HPI - Chest Pain General Chief Complaint: Chest Pain Stated Complaint: Chest pain Time Seen by Provider: 02/10/22 03:38 Source: patient Mode of arrival: ambulatory Limitations: no limitations History of Present Illness HPI narrative: 51-year-old female came in for evaluation of mid chest pain. Patient started to have chest pain since last night pain is localized to the midsternal area and under the left breast, no trauma or injury to the chest, pain was described as dull aching pain that has been constant sent it started last night pain is 10/10, pain is worse with touching the area or sleeping on her left side nothing relieves the pain otherwise, no coughing or SOB, no fever or chills. No recent travel, no recent prolonged immobilization, no lower extremity swelling or tenderness. Related Data Home Medications Medication Instructions Recorded Confirmed ibuprofen 800 mg tablet 800 mg PO Q8H PRN pain 04/27/21 10/27/21 Previous Rx's Medication Instructions Recorded cholecalciferol (vitamin D3) 25 25 mcg PO DAILY #30 tabs 07/08/21 mcg (1,000 unit) tablet omeprazole 40 mg capsule,delayed 40 mg PO DAILY #90 caps 10/22/21 release simvastatin 20 mg tablet 20 mg PO BEDTIME #90 tabs 10/22/21 metronidazole 500 mg tablet 500 mg PO BID 7 days #14 tabs 12/20/21 albuterol sulfate 90 mcg/actuation 2 puff inhalation Q6H PRN 01/17/22 aerosol inhaler (Ventolin HFA) shortness of breath or wheezing 30 days #8.5 grams ibuprofen 600 mg tablet 600 mg PO Q8H PRN pain #20 tabs 02/10/22 Allergies Allergy/AdvReac Type Severity Reaction Status Date / Time No Known Allergies Allergy Verified 01/15/22 19:37 [No Known Allergies*] Review of Systems Review of Systems: All other systems are reviewed and are negative Constitutional: Reports as per HPI and Reports no additional constitutional complaints Eyes: Reports as per HPI and Reports no additional eye complaints Reports system reviewed and no additional complaints, except as documented Cardiovascular: Reports as per HPI and Reports no additional cardiovascular complaints Respiratory: Reports as per HPI and Reports no additional respiratory complaints Gastrointestinal: Reports as per HPI and Reports no additional gastrointestinal complaints Genitourinary: Reports no additional female genitourinary complaints Musculoskeletal: Reports no additional musculoskeletal complaints Skin/Breast: Reports system reviewed and no additional complaints, except as docu Psychiatric: Reports no additional psychiatric complaints Endocrine: Reports no additional endocrine complaints Hematologic/Lymphatic: Reports no additional hematologic/lymphatic complaints Allergic/Immunologic: Reports no additional allergic/immunologic complaints Reports system reviewed and no additional complaints, except as documented and Reports Abnormal speech present [facility] Past Medical History Medical History Abdominal pain Ankle pain, left Anxiety and depression Arthralgia Carpal tunnel syndrome on both sides Cellulitis of right ring finger DDD (degenerative disc disease), thoracolumbar Degenerative arthritis Degenerative disc disease, cervical Fibromyalgia Impaired fasting glucose Insomnia Left hip pain Lumbar radiculopathy Mild stress incontinence Overweight (BMI 25.0-29.9) Posttraumatic stress disorder Pure hypercholesterolemia Smoker Thrombocytopenia Vitamin D deficiency Surgical History History of hip surgery History of tubal ligation Family History Family History Father Diabetes Hypertension Mother Diabetes Hypertension Maternal Grandmother Renal disease Daughter Depression with anxiety Son Depression with anxiety Social History Social History Housing: House Alcohol intake: current Alcohol intake frequency: a few times a week Alcohol type: beer Patient Tobacco Use Status: Current everyday Tobacco user Cigarettes Per Day: 5 Smoked in Last 30 Days: Yes Second Hand Smoke Exposure: Yes Use of substances other than those prescribed or required for medical reasons: No Substance Use Type: Marijuana Advance Directives: No Advance Directives Information Provided: Yes Advance Directives Date on File: 12/02/19 Patient : No service: No Current occupational status: disabled Cognitive needs: No Hearing needs: No Vision needs: Yes Physical Exam Vital Signs: Vital Signs: Last Vital Signs Temp 98.2 F 02/10/22 02:18 Pulse 74 02/10/22 03:28 Resp 13 02/10/22 03:28 BP 128/81 02/10/22 03:28 Pulse Ox 99 02/10/22 03:28 O2 Del Method 02/10/22 03:28 BMI result Body Mass Index 26.9 Vital signs have been reviewed as appeared to be correct. Blood pressure normal. Heart rate normal. Respiration rate normal. Temperature normal. Oxygen saturation normal. Appearance: Alert. Oriented X3. No acute distress. Head: Normal external exam. Normocephalic. Atraumatic. No Acosta signs noted. No raccoon eyes noted Eyes: PERRLA. EOMI. Conjunctiva and sclera normal. Eyelids normal. ENT: TM's Normal. Pharynx normal. Uvula midline. Moist mucous membranes. No trismus noted. No drooling noted. No muffled voice noted. Neck: Normal inspection. Neck supple. FROM. No adenopathy. Thyroid Normal. No meningeal signs. No neck mass noted. CVS: Normal heart rate and rhythm. Heart sound normal. No murmurs noted. Pulses normal throughout. Respiratory: No respiratory distress. Painless inspiration. Breath sounds normal. No wheezes/rales/rhonchi noted. Reproducible tenderness to the lower st ernal border, no deformity, no step-off. No accessory muscle usage noted or decreased air movement noted. Abdomen: Soft and nontender. Bowel sounds normal in all 4 quadrants. No distention noted. No organomegaly noted. No visible injury noted. Back: No CVA tenderness. Full range of motion noted. Skin: Skin warm and dry. Normal skin color. Normal skin turgor. No rashes/lesions/lacerations noted. Extremities: No lower extremity edema. Extremities exhibit normal range of motion. Extremities nontender. Neuro: Oriented X 3. Cranial nerve exam: II-XII are grossly intact No motor deficit. No sensory deficit. Reflexes normal. Course Course Course Narrative: 51-year-old female came in with reproducible chest pain since last night, patient had unremarkable troponin x2 with unremarkable EKG, HEART score is 1, patient at low risk for PE with unremarkable D-dimer, physical exam and history is consistent with costochondritis patient improved with ibuprofen given in the ED. Medications Administered Discontinued Medications Generic Name Dose Route Start Last Admin Trade Name Freq PRN Reason Stop Dose Admin Ibuprofen 800 mg 02/10/22 04:46 02/10/22 04:57 Ibuprofen 800 Mg Tablet PO 02/10/22 04:47 800 mg ONCE ONE Administration Medical Decision Making Differential Diagnosis Differential Diagnoses: The differential diagnosis associated with the presentation includes (ACS/pulmonary embolism/costochondritis/chest wall pain/pneumonia/refraction.) Lab Data MDM Lab Attestation statement: I reviewed the patient's lab results. Result Diagrams: 02/10/22 02:38 02/10/22 02:38 Labs: Lab Results 02/10/22 02/10/22 02/10/22 Range/Units 02:38 02:38 02:38 WBC 9.1 (4.8-10.8) X10*3/uL RBC 3.88 L (4.20-5.50) X10*6/uL Hgb 12.5 (12.0-16.0) g/dl Hct 37.9 (37.0-47.0) % MCV 97.7 (80.0-98.0) fL MCH 32.2 (27.0-33.0) pg MCHC 33.0 (31.0-35.0) g/dl RDW 13.6 (11.0-16.0) % Plt Count 193 (160-400) X10*3/uL MPV 12.3 (9.4-12.3) fL Immature Gran % (Auto) 0.3 (0.0-0.4) % Neut % (Auto) 45.6 (45-73) % Lymph % (Auto) 46.8 H (20-40) % [place] % (Auto) 5.4 (2-11) % Eos % (Auto) 1.1 (0-4) % Baso % (Auto) 0.8 (0-2) % Lymph # (Auto) 4.3 (1.2-4.9) X10*3/uL [place] # (Auto) 0.5 (0.1-1.2) X10*3/uL Eos # (Auto) 0.1 (0.0-0.4) X10*3/uL Baso # (Auto) 0.1 (0.0-0.2) X10*3/uL Abs Immat Gran (auto) 0.03 (0.00-0.03) X10*3/uL Absolute Neuts (auto) 4.2 (2.0-8.3) x10*3/uL Absolute Nucleated RBC 0.000 (0.0-0.012) X10*3/uL Nucleated RBC % (auto) 0.0 (0.0-0.2) /100WBC D-Dimer High Sensitivty NG/ML Sodium 143 (135-145) mmol/L Potassium 4.3 (3.3-5.1) mmol/L Chloride 111 H (96-108) mmol/L Carbon Dioxide 25 (22-29) mmol/L Anion Gap 11 L (12-20) BUN 13 (9-16) mg/dL Creatinine 0.84 (0.5-1.4) mg/dL Estim Creat Clear Calc 83.3 Estimated GFR > 60 Random Glucose 103 (60-115) mg/dL Calcium 8.9 (8.4-10.2) mg/dL Troponin I High Sens < 3.5 (<3.5-17.0) ng/L 02/10/22 Range/Units 02:38 WBC (4.8-10.8) X10*3/uL RBC (4.20-5.50) X10*6/uL Hgb (12.0-16.0) g/dl Hct (37.0-47.0) % MCV (80.0-98.0) fL MCH (27.0-33.0) pg MCHC (31.0-35.0) g/dl RDW (11.0-16.0) % Plt Count (160-400) X10*3/uL MPV (9.4-12.3) fL Immature Gran % (Auto) (0.0-0.4) % Neut % (Auto) (45-73) % Lymph % (Auto) (20-40) % [place] % (Auto) (2-11) % Eos % (Auto) (0-4) % Baso % (Auto) (0-2) % Lymph # (Auto) (1.2-4.9) X10*3/uL [place] # (Auto) (0.1-1.2) X10*3/uL Eos # (Auto) (0.0-0.4) X10*3/uL Baso # (Auto) (0.0-0.2) X10*3/uL Abs Immat Gran (auto) (0.00-0.03) X10*3/uL Absolute Neuts (auto) (2.0-8.3) x10*3/uL Absolute Nucleated RBC (0.0-0.012) X10*3/uL Nucleated RBC % (auto) (0.0-0.2) /100WBC D-Dimer High Sensitivty 185 NG/ML Sodium (135-145) mmol/L Potassium (3.3-5.1) mmol/L Chloride (96-108) mmol/L Carbon Dioxide (22-29) mmol/L Anion Gap (12-20) BUN (9-16) mg/dL Creatinine (0.5-1.4) mg/dL Estim Creat Clear Calc Estimated GFR Random Glucose (60-115) mg/dL Calcium (8.4-10.2) mg/dL Troponin I High Sens (<3.5-17.0) ng/L Independent Interpretation I performed an independent interpretation of an: EKG (Normal sinus rhythm at 83 beats per minutes, normal intervals, normal axis deviation, no ST-T changes.) and Plain X-Ray (Unremarkable examination.) Discharge Plan Discharge Clinical Impression: Acute costochondritis Patient Disposition: Home, Self-Care Instructions: Costochondritis (ED) Prescriptions: New ibuprofen 600 mg tablet 600 mg PO Q8H PRN (Reason: pain) Qty: 20 0RF No Action cholecalciferol (vitamin D3) 25 mcg (1,000 unit) tablet 25 mcg PO DAILY Qty: 30 1RF simvastatin 20 mg tablet 20 mg PO BEDTIME Qty: 90 1RF omeprazole 40 mg capsule,delayed release(DR/EC) 40 mg PO DAILY Qty: 90 1RF metronidazole 500 mg tablet 500 mg PO BID 7 Days Qty: 14 0RF Rx Instructions: Take with food, Avoid alcohol and vinegar products albuterol sulfate [Ventolin HFA] 90 mcg/actuation HFA aerosol inhaler 2 puff inhalation Q6H PRN (Reason: shortness of breath or wheezing) 30 Days Qty: 8.5 1RF ibuprofen 800 mg tablet 800 mg PO Q8H PRN (Reason: pain) Referrals: Andreas Christensen MD [Primary Care Provider] -
[2022-02-10 05:31] VITALS: BP 113/67; PULSE 71; RESP 20; TEMP 36.4; O2SAT 97
[2022-02-10 05:36] LABS: Troponin-I High Sensitivity < 3.5 ng/L (<3.5-17.0)
== END 2022-02-10 07:09 | disposition home or self-care (01) ==
PROVIDERS: Emergency Provider Emergency Medicine; PCP Internal Medicine
DX: M94.0 Chondrocostal junction syndrome [Tietze] (principal); E78.00 Pure hypercholesterolemia, unspecified; F17.210 Nicotine dependence, cigarettes, uncomplicated; F12.90 Cannabis use, unspecified, uncomplicated; Z79.02 Long term (current) use of antithrombotics/antiplatelets; Z79.899 Other long term (current) drug therapy
CPT/HCPCS: 36415; 71046; 80048; 84484; 85025; 85379; 93005; 99283; 99285

== ENCOUNTER 2022-03-03 10:40 | Outpatient (REF) | payer OTHER, SELFPAY ==
--- NOTE | ~2022-03-03 | XR_ITS ---
EXAMINATION: XR KNEE, RIGHT CLINICAL INFORMATION: M25.561 - Pain in right knee COMPARISON: None TECHNIQUE: Four views of the right knee. FINDINGS: No fracture or dislocation or destructive process. Suspect small suprapatellar effusion. Hoffa's fat pad appears normal. There is narrowing lateral knee joint compartment with borderline subchondral sclerosis and small lateral patellar marginal osteophyte. No erosive change or chondrocalcinosis. Axial view patella shows no lateralization or tilting. XR/XR knee RT 4V IMPRESSION: -Mild degenerative changes lateral knee joint compartment. Small suprapatellar effusion. -No erosive changes or visible chondrocalcinosis.
== END 2022-03-03 10:41 | disposition home or self-care (01) ==
LOC: HO.XRAY 10:40
PROVIDERS: PCP Internal Medicine; Visit Provider Internal Medicine
DX: M25.461 Effusion, right knee (principal); M25.561 Pain in right knee
CPT/HCPCS: 73564

== ENCOUNTER → 2022-03-10 11:31 | Outpatient (BNVA) | payer OTHER, SELFPAY | PROVIDERS: PCP Internal Medicine; Visit Provider Obstetrics & Gynecology | DX: Z20.6 Contact with and (suspected) exposure to human immunodeficiency virus [HIV] (principal); R10.2 Pelvic and perineal pain | CPT/HCPCS: 99212 ==

== ENCOUNTER → 2022-06-29 16:21 | Outpatient (BNVA) | payer OTHER, SELFPAY | PROVIDERS: PCP Internal Medicine; Visit Provider Nurse Practitioner | DX: Z01.818 Encounter for other preprocedural examination (principal); K62.5 Hemorrhage of anus and rectum | CPT/HCPCS: 99212 ==

== ENCOUNTER 2022-07-13 11:25 | Outpatient (REF) | payer OTHER, SELFPAY ==
--- NOTE | ~2022-07-13 | MM_ITS ---
EXAMINATION: MM SCREENING DIGITAL BREAST TOMOSYNTHESIS, BILATERAL CLINICAL INFORMATION: Screening. Asymptomatic. The lifetime risk of breast cancer based on the Tyrer-Cuzick Model is 6%. COMPARISON: Mammography: 03/29/2021, 02/11/2020, 11/08/2017 TECHNIQUE: Digital breast tomosynthesis is performed in both the craniocaudal and mediolateral oblique views along with computer-aided detection (CAD). Synthesized 2D images are generated from the tomosynthesis. FINDINGS: There are scattered areas of fibroglandular density (ACR BI-RADS breast composition Category b). Parenchymal pattern is similar to prior studies and there is no interval significant mass or architectural abnormality or developing density. No abnormal calcifications. There is a stable smooth nodule anterior lower right breast similar to prior exams. The axilla and skin contours are unremarkable. MM/MM tomosynthesis screening BI IMPRESSION: No mammographic evidence of malignancy. ASSESSMENT: BI-RADS 2: Benign RECOMMENDATION: Routine annual mammography screening. This patient's information was entered into a reminder system with a target due date for their next mammogram.
== END 2022-07-13 11:26 | disposition home or self-care (01) ==
LOC: HO.MAMMO 11:25
PROVIDERS: PCP Internal Medicine; Visit Provider Internal Medicine
DX: Z12.31 Encounter for screening mammogram for malignant neoplasm of breast (principal)
CPT/HCPCS: 77063; 77067

== ENCOUNTER 2022-09-01 10:01 | Outpatient (AMB) | payer OTHER, SELFPAY ==
--- NOTE | 2022-09-01 10:14 | AM.OFFVISNUR ---
Intake Intake Visit Reasons: hep B Allergies No Known Allergies [No Known Allergies*] Allergy (Verified 06/29/22 16:31) Immunizations Engerix-B (PF) Performing Provider: Andreas Christensen MD Administered by: Shannan Jerry RN on 09/01/22 10:14 Dose Route Admin Location Lot Number Expiration Date NDC Heel Sprayer 1 mL IM Left Deltoid [id number] 04/09/23 03986-023-31 Comic Reply VIS Given Date VIS Provided VIS Publication Date 09/01/22 Single Vaccine 22 Eligibility Eligibility Date Funding Source Not [facility] Eligible 09/01/22 Private Coding Diagnoses Assessment & Plan Assessment & Plan Orders: Orders Hepatitis B Adult Immunization Today Z23 - Encounter for immunization
== END 2022-09-01 10:19 | disposition home or self-care (01) ==
PROVIDERS: PCP Internal Medicine; Visit Provider Internal Medicine
DX: Z23 Encounter for immunization (principal)
CPT/HCPCS: 90471; 90746

== ENCOUNTER 2022-09-08 10:51 | Outpatient (REF) | payer OTHER, SELFPAY ==
--- NOTE | ~2022-09-08 | MM_ITS ---
EXAMINATION: BONE DENSITOMETRY CLINICAL INDICATION: Asymptomatic menopausal state. COMPARISON: This is the patient's baseline examination. TECHNIQUE: Using a SpunLive DXA System (software version: 13.1) manufactured by [employer], dual-energy x-ray absorptiometry was performed of the lumbar spine and left hip. The images are of good technical quality. Summary results are attached. FINDINGS: AP SPINE L1-L2 (excluding L3 and L4): The data of L1-L4 has been changed to exclude the L3 and L4 vertebral bodies, because degenerative sclerosis and metallic artifact. at these levels may cause overestimation of lumbar spine density. BMD 1.128 g/cm2, Z-score -0.1, T-score -0.3, normal. LEFT FEMUR, NECK: BMD 0.882 g/cm2, Z-score -0.5, T-score -1.1, osteopenia. LEFT FEMUR, TOTAL: BMD 0.881 g/cm2, Z-score -0.8, T-score -1.0, normal. IDENTIFIED RISK FACTORS: Rheumatoid arthritis. Current smoker. Secondary osteoporosis (early menopause). HISTORY OF FRACTURE: None listed. MEDICATIONS: Calcium supplement and/or multivitamin. Vitamin D. MM/XR DEXA axial skeleton IMPRESSION: 1. DIAGNOSIS: Osteopenia based on the lowest T-score value of -1.1 in the femoral neck applying World Health Organization criteria. 2. 10-YEAR FRACTURE RISK PREDICTION, FRAX: Major osteoporotic fracture (clinical spine, forearm, hip or shoulder) 3.9%. Hip fracture 0.4%. 3. Treatment Recommendations: NOF guidelines recommend consideration for treatment in postmenopausal women and men age 50 and older presenting with the following: -A hip or vertebral (clinical or morphometric) fracture. -T-score less than or equal to -2.5 at the femoral neck or spine after appropriate evaluation to exclude secondary causes. -Low bone mass at the hip or spine and a 10-year fracture probability by FRAX of greater than or equal to 3% for hip fracture or greater than or equal to 20% for major osteoporotic fracture based on the [place] adapted WHO algorithm. 4. Other Recommendations: All treatment decisions require clinical judgment and consideration of individual patient factors, including patient preferences, comorbidities, previous drug use, risk factors not captured in the FRAX model (e.g. frailty, falls, vitamin D deficiency, increased bone turnover, interval significant decline in bone density) and possible under or overestimation of fracture risk by FRAX. Additional medical evaluation for secondary cause of low bone mineral density may be appropriate. FUTURE SCAN RECOMMENDATION: People with diagnosed cases of osteoporosis or at high risk for fracture should have regular bone mineral density tests. For patients eligible for Medicare, routine testing is allowed once every 2 years. The testing frequency can be increased to one year for patients who have rapidly progressing disease, those who are receiving or discontinuing medical therapy to restore bone mass, or have additional risk factors.
== END 2022-09-08 10:52 | disposition home or self-care (01) ==
LOC: HO.MAMMO 10:51
PROVIDERS: PCP Internal Medicine; Visit Provider Internal Medicine
DX: Z13.820 Encounter for screening for osteoporosis (principal); Z78.0 Asymptomatic menopausal state
CPT/HCPCS: 77080

== ENCOUNTER → 2022-09-08 11:00 | Outpatient (BNV) | payer OTHER, SELFPAY | PROVIDERS: PCP Internal Medicine; Visit Provider Radiology Diagnostic Radiology | DX: Z78.0 Asymptomatic menopausal state (principal) | CPT/HCPCS: 77080 ==

== ENCOUNTER 2022-09-20 11:51 | Day surgery (SDC) | payer OTHER, SELFPAY ==
[2022-09-15 19:21] VITALS: BMI 27.9
[2022-09-20 12:30] VITALS: BP 140/81; PULSE 84; RESP 17; TEMP 36.2; O2SAT 98; BMI 27.2
--- NOTE | 2022-09-20 12:42 | HO.ANESPROP2 ---
[facility] Active Problems Active Problems: All Active Problems (Updated 09/15/22 @ 19:21 by Ena Crowder RN) Oropharyngeal dysphagia (Acute) HIV exposure (Acute) Lower back injury (Acute) Dysuria (Acute) Pelvic pain (Acute) Cellulitis of right ring finger (Acute) Laceration of right ring finger (Acute) Fracture of toe of right foot (Acute) Bacterial vaginosis (Acute) Screen for STD (sexually transmitted disease) (Acute) Microscopic hematuria (Acute) Positive RPR test (Acute) COPD (chronic obstructive pulmonary disease) (Acute) Degenerative arthritis of cervical spine (Acute) Diarrhea (Acute) GERD (gastroesophageal reflux disease) (Acute) Hoarse voice quality (Acute) Colon cancer screening (Acute) Annual physical exam (Acute) Chest pain (Acute) Paresthesia (Acute) Hoarseness (Acute) Well woman exam (Acute) Screening for HIV (human immunodeficiency virus) (Acute) HPV (human papilloma virus) infection (Acute) Precordial chest pain (Acute) SOB (shortness of breath) (Acute) Pain and swelling of right knee (Acute) Acute costochondritis (Acute) Rectal bleeding (Acute) Pre-op examination (Acute) Overweight (BMI 25.0-29.9) (Acute) Smoker (Acute) Arthralgia (Acute) Left hip pain (Acute) Abdominal pain (Acute) Anxiety and depression (Acute) Degenerative arthritis (Acute) Ankle pain, left (Acute) Posttraumatic stress disorder (Acute) Mild stress incontinence (Acute) Lumbar radiculopathy (Acute) DDD (degenerative disc disease), thoracolumbar (Acute) Degenerative disc disease, cervical (Acute) Vitamin D deficiency (Acute) Carpal tunnel syndrome on both sides (Acute) Fibromyalgia (Acute) Insomnia (Acute) Impaired fasting glucose (Acute) Pure hypercholesterolemia (Acute) Past Medical History Medical History Abdominal pain Ankle pain, left Anxiety and depression Arthralgia Carpal tunnel syndrome on both sides Cellulitis of right ring finger COPD (chronic obstructive pulmonary disease) DDD (degenerative disc disease), thoracolumbar Degenerative arthritis Degenerative disc disease, cervical Fibromyalgia Impaired fasting glucose Insomnia Left hip pain Lumbar radiculopathy Migraine Mild stress incontinence Overweight (BMI 25.0-29.9) Posttraumatic stress disorder Pure hypercholesterolemia Smoker Thrombocytopenia Vitamin D deficiency Family History Family History Father Diabetes Hypertension Mother Diabetes Hypertension Maternal Grandmother Renal disease Daughter Depression with anxiety Son Depression with anxiety Surgical History Surgical History History of hip surgery History of tubal ligation History of Problems with Anesthesia: No Social History Social History Housing: House Alcohol intake: current Alcohol intake frequency: 0-2 drinks per day Alcohol type: beer Patient Tobacco Use Status: Current everyday Tobacco user Tobacco use type: Cigarette Cigarette Packs Per Day: 0.5 Cigarettes Per Day: 10.0 Years Smoked: 10 Smoked in Last 30 Days: Yes Second Hand Smoke Exposure: Yes Use of substances other than those prescribed or required for medical reasons: Yes Substance Use Type: Marijuana Substance Use Frequency: Daily Are you DNR?: No Advance Directives: No Advance Directives Information Provided: Yes Advance Directives on File: No Advance Directives Date on File: 12/02/19 Recently lost weight without trying: No Nutrition Risks: No Nutritional Risk service: No Current occupational status: disabled Cognitive needs: No Hearing needs: No Vision needs: Yes Meds Allergies Allergy/AdvReac Type Severity Reaction Status Date / Time No Known Allergies Allergy Verified 06/29/22 16:31 [No Known Allergies*] Home Medications Medication Instructions Recorded Confirmed Last Taken Type ibuprofen 400 mg tablet 400 mg PO Q8H 06/29/22 09/15/22 Unknown History Exam Exam Date and Time: September 20, 2022 1242 Height,Weight and Vital Signs: Height 5 ft 7 in Weight 78.925 kg Last Vital Signs Temp 97.2 F 09/20/22 12:30 Pulse 84 09/20/22 12:30 Resp 17 09/20/22 12:30 BP 140/81 H 09/20/22 12:30 Pulse Ox 98 09/20/22 12:30 O2 Del Method Room Air 09/20/22 12:30 Airway Mallampati Class: II TM Dist: >3cm Neck ROM: Full Loose/Missing/Broken Teeth: No Heart: RRR Lungs: CTA Assessment and Plan Assessment Anesthesia Assessment: Anesthesia Plan Discussed and Chart Reviewed Final Anesthetic Review History of Problems with Anesthesia: No NPO: Yes ASA Class: II Final Preanesthetic Review: Meds/Allgs Chart Reviewed, Consent Obtained/Reviewed and Anes Risks/Benef Reviewed Patient Risk: Low Procedure Risk: Low Anesthetic Plan Anesthetic Plan: MAC: Disposition: Standard PACU
--- NOTE | 2022-09-20 13:54 | MHC.SHP ---
Pre-Procedural Eval Section A Date of Service: 09/20/22 The patient is an INPATIENT: No The History & Physical has been completed within 30 days and I have reviewed it.: No Section B Chief Complaint: screening, rectal bleeding, diarrhea Relevant Family History (Specify if Yes): No Relevant Social History: Tobacco Use Present Medications: see Short Stay Collaborative assessment Medical History: Significant History (Abdominal pain Ankle pain, left Anxiety and depression Arthralgia Carpal tunnel syndrome on both sides Cellulitis of right ring finger DDD (degenerative disc disease), thoracolumbar Degenerative arthritis Degenerative disc disease, cervical Fibromyalgia Impaired fasting glucose Insomnia Left hip rosie) History of Previous Operations: Relevant previous surgery/procedure and date(s) (History of hip surgery History of tubal ligation) Allergies: Allergies Allergy/AdvReac Type Severity Reaction Status Date / Time No Known Allergies Allergy Verified 06/29/22 16:31 [No Known Allergies*] Review of Systems Sugical H&P ROS: Negative: Constitution, Cardiovascular, Respiratory and Gastrointestinal Exam Surgical H&P Exam: Normal: Heart, Normal: Lungs, Normal: Extremities and Normal: Abdomen Plan Diagnosis/Plan: Unchanged I have reviewed the history and physical and performed a pertinent physical examination on my patient. No changes have occurred unless specified. Time Spent With Patient Time: Total time managing care of this patient today ____ minutes.
[2022-09-20] MEDS: Lactated Ringers 1,000 ML 100 ML IVCONT (13:55)
--- NOTE | 2022-09-20 14:00 | W.PM.OPN ---
Operative Note Operative Note Date of Service: 09/20/22 Narrative: COLONOSCOPY TILL CECUM WITH BIOPSIES Pre-op diagnosis: Colon cancer screening, chronic diarrhea, rectal bleeding Post-op diagnosis:? Colon polyps, diverticulosis Endoscopist:? Damien Dotson MD Anesthesia:?MAC Consent: Indications for the procedure and potential complications of bleeding, perforation, reaction to medications and missed diagnosis were discussed with the patient and informed consent was obtained. Instrument: Olympus PCF H 190 L variable stiffness pediatric colonoscope Monitoring: Vital signs and clinical assessment, intermittent blood pressure monitoring, continuous EKG monitoring, Pulse oximetry and Carbon Dioxide monitoring were done throughout the procedure. Please see anesthesia flowsheet. Colon withdrawl time was 19 minutes. Procedure: The patient was placed in the left lateral decubitis position and pre-procedure medications were administered. After a digital rectal examination of the ano-rectum, the video colonoscope was inserted into the rectum and advanced through the colon to the cecum. The colonoscope was slowly withdrawn in a retrograde panoramic fashion and the colon mucosa was carefully examined including a retroflexed view of the rectum. Findings and interventions are described below. Procedure Difficulty: Without difficulty Findings: Terminal Ileum: Distal 6-7 cms was examined and appeared normal Cecum: Normal Ascending Colon: Normal Transverse Colon: Normal Descending Colon: Normal Sigmoid Colon: Moderate diverticulosis Rectum: A few 4-6 mm diminutive appearing polyps in the distal rectum - 1 was removed with a cold biopsy Ano-rectum: Moderate internal hemorrhoids Colon preparation: Excellent Impression and Post Procedure Diagnosis: Colonoscopy Findings: One small polyp removed Random biopsies were obtained from the right and left colon to check for microscopic colitis. Moderate diverticulosis seen in the sigmoid colon Plan: Await pathology results Patient has an appointment on 10/04/22 in the [facility] with Barbara Caba NP. Repeat Colonoscopy interval based on path results - in 5 years if polyps are adenomatous and 10 years if polyps are hyperplastic. Above findings were reviewed with the patient and colon polyps and diverticulosis handouts were given in the discharge area
[2022-09-20 14:44] VITALS: BP 132/67; PULSE 87; RESP 16; TEMP 36.1; O2SAT 98
[2022-09-20 14:59] VITALS: BP 155/92; PULSE 73; RESP 16; TEMP 36.1; O2SAT 100
== END 2022-09-20 15:48 | disposition home or self-care (01) ==
PROVIDERS: PCP Internal Medicine; Visit Provider Internal Medicine Gastroenterology
PROC: 0DJD8ZZ Inspection of Lower Intestinal Tract, Via Natural or Artificial Opening Endoscopic (ICD-10-PCS; CPT 45378; principal; 2022-09-20 13:40)
DX: Z12.11 Encounter for screening for malignant neoplasm of colon (principal); K62.1 Rectal polyp; K57.30 Diverticulosis of large intestine without perforation or abscess without bleeding; K64.8 Other hemorrhoids; R19.7 Diarrhea, unspecified; K21.9 Gastro-esophageal reflux disease without esophagitis; E78.00 Pure hypercholesterolemia, unspecified; J44.9 Chronic obstructive pulmonary disease, unspecified; F17.210 Nicotine dependence, cigarettes, uncomplicated; Z79.899 Other long term (current) drug therapy
CPT/HCPCS: 45380; 88305

== ENCOUNTER → 2022-09-20 11:51 | Outpatient (BNV) | payer OTHER, SELFPAY | PROVIDERS: PCP Internal Medicine; Visit Provider Internal Medicine Gastroenterology | DX: Z12.11 Encounter for screening for malignant neoplasm of colon (principal); K52.9 Noninfective gastroenteritis and colitis, unspecified; K62.5 Hemorrhage of anus and rectum; K57.30 Diverticulosis of large intestine without perforation or abscess without bleeding; D12.8 Benign neoplasm of rectum; K64.8 Other hemorrhoids | CPT/HCPCS: 45380 ==

== ENCOUNTER 2022-09-27 08:04 | Outpatient (REF) | payer OTHER, SELFPAY ==
[2022-09-27 17:28] LABS: CT PCR NOT DETECTED (Not Detect.); NG PCR NOT DETECTED (Not Detect.)
[2022-09-28 15:09] LABS: BV Int Neg Control Negative (Negative); BV Int Pos Control Positive (Positive)
[2022-09-29 03:44] LABS: HPV mRNA E6/E7 rflx Not Detected (Not Detected)
== END 2022-09-27 08:05 | disposition home or self-care (01) ==
LOC: HO.LNP 08:04
PROVIDERS: PCP Internal Medicine; Visit Provider Obstetrics & Gynecology
DX: Z01.419 Encounter for gynecological examination (general) (routine) without abnormal findings (principal); Z11.51 Encounter for screening for human papillomavirus (HPV); N39.0 Urinary tract infection, site not specified; R31.29 Other microscopic hematuria; Z20.2 Contact with and (suspected) exposure to infections with a predominantly sexual mode of transmission
CPT/HCPCS: 0353U; 81003; 87086; 87088; 87186; 87480; 87510; 87624; 87660; 88142

== ENCOUNTER 2022-09-27 08:04 | Outpatient (AMB) | payer OTHER, SELFPAY ==
[2022-09-27 08:10] VITALS: BP 124/72; BMI 27.7
--- NOTE | 2022-09-27 08:10 | MHC.OFFVIS ---
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 Complaining of urinary frequency, urgency and dysuria over the last week. No fever or chills or flank pain. The patient is requesting STD screen Last Pap/HPV was negative/HPV positive in 09/03, colpo biopsy/ECC were negative Last Mammogram was BI-RADS 2 in 07/05 [facility] Medical History Abdominal pain Ankle pain, left Anxiety and depression Arthralgia Carpal tunnel syndrome on both sides Cellulitis of right ring finger COPD (chronic obstructive pulmonary disease) DDD (degenerative disc disease), thoracolumbar Degenerative arthritis Degenerative disc disease, cervical Fibromyalgia Impaired fasting glucose Insomnia Left hip pain Lumbar radiculopathy Migraine Mild stress incontinence Overweight (BMI 25.0-29.9) Posttraumatic stress disorder Pure hypercholesterolemia Smoker Thrombocytopenia Vitamin D deficiency Surgical History History of hip surgery History of tubal ligation Family History Father Diabetes Hypertension Mother Diabetes Hypertension Maternal Grandmother Renal disease Daughter Depression with anxiety Son Depression with anxiety Social History Housing: House Alcohol intake: current Alcohol intake frequency: 0-2 drinks per day Alcohol type: beer Patient Tobacco Use Status: Current everyday Tobacco user Tobacco use type: Cigarette Cigarette Packs Per Day: 0.5 Cigarettes Per Day: 10.0 Years Smoked: 10 Second Hand Smoke Exposure: Yes Substance Use Type: Marijuana Advance Directives Date on File: 12/02/19 service: No Current occupational status: disabled Cognitive needs: No Hearing needs: No Vision needs: Yes Female Reproductive History Menstrual Age of Menarche: 10 Menopause type: natural Total pregnancies: 6 Full term: 3 Number of Living Children: 3 Ab spontaneous: 3 Date of last pap smear: 08/20/21 History of abnormal pap smear: Yes (HPV +) Date of Mammogram: 07/03/22 Date of last Bone Density Screenin09/08/22 Review of Systems Const All systems reviewed & are unremarkable except as noted in HPI and below Card Reports as per HPI Resp Reports as per HPI GI Reports as per HPI and Reports no additional complaints Reports as per HPI Physical Exam Vital Signs: Last Vital Signs BP 124/72 09/27/22 08:10 BMI result Body Mass Index 27.7 Const General: cooperative, healthy appearing and comfortable Chest Chest palpation & inspection: normal inspection of the chest and normal palpation of entire chest wall Breast/axilla inspection: normal inspection of the breasts and normal inspection of the axillae Breast/axilla palpation: normal palpation of the breasts, normal palpation of the axillae and no axillary lymphadenopathy Resp Effort & Inspection: normal respiratory effort Auscultation: clear to auscultation bilaterally Percussion: percussion normal Cardio Palpation: normal PMI Rate: regular rate Rhythm: regular rhythm Heart sounds: no murmurs and no rubs Peripheral pulses: Peripheral pulses 2+ throughout GI Inspection: Yes normal to inspection Palpation (GI): Soft to palpation, nontender, no guarding, not rigid and No hepatosplenomegaly present Percussion: Yes normal to percussion Auscultation: normal bowel sounds Rectal Exam - Female: deferred General: Yes bladder normal to palpation External Female Exam: No lesion Speculum Exam - Vagina: normal appearance of the vagina, normal palpation, normal vaginal discharge and not erythematous Speculum Exam - Cervix: normal appearance of the cervix and normal palpation Bimanual exam- vagina & uterus: normal bimanual exam, normal palpation, uterine size normal, bladder normal to palpation, consistency normal and normal palpation Bimanual Exam- Adnexa, other: normal adnexae, no masses and no tenderness Results AMB Urinalysis, Automated UA Leukoctes 1 Dipesh/uL Last Edit by ANDREEA Jauregui on 09/27/22 08:19 UA Nitrite Positive Last Edit by ANDREEA Jauregui on 09/27/22 08:19 UA Urobilinogen 0 mg/dL Last Edit by ANDREEA Jauregui on 09/27/22 08:19 UA Protein 0.5 mg/dL Last Edit by Yarely Lau RMA on 09/27/22 08:19 UA pH 5 Last Edit by Yarely Lau RMA on 09/27/22 08:19 UA Blood 2 Alfred/uL Last Edit by Yarely Lau RMA on 09/27/22 08:19 UA Specific [place] 1.030 Last Edit by Yarely Floriandro RMA on 09/27/22 08:19 UA Ketone Positive Last Edit by Yarely Lau RMA on 09/27/22 08:19 UA Bilirubin 0 mg/dL Last Edit by Yarely Florianverónica RMA on 09/27/22 08:19 UA Glucose 0 mg/dL Last Edit by Yarely Floriandro RMA on 09/27/22 08:19 Results Reviewed Results Reviewed: Laboratory Last Values Urine pH (Auto) 5 09/27/22 08:18 Specific [place] (Auto) 1.030 09/27/22 08:18 Urine Protein (Auto) 0.5 mg/dL 09/27/22 08:18 Glucose (UA)(Auto) 0 mg/dL 09/27/22 08:18 Urine Ketones (Auto) Positive 09/27/22 08:18 Urine Blood (Auto) 2 Alfred/uL 09/27/22 08:18 Urine Nitrite (Auto) Positive 09/27/22 08:18 Urine Bilirubin (Auto) 0 mg/dL 09/27/22 08:18 Urine Urobilinogen (Auto) 0 mg/dL 09/27/22 08:18 Leukocyte Esterase (Auto) 1 Dipesh/uL 09/27/22 08:18 Assessment & Plan Assessment & Plan (1) Well woman exam: Code(s): Z01.419 - Encounter for gynecological examination (general) (routine) without abnormal findings Plan: Cotesting done. Instructions given the patient to schedule her next screening Mammogram in 07/06. Counseled the patient about the recommended dietary allowance of 1000 mg of Calcium & 600 IU of vitamin D. The patient was instructed to perform monthly self-breast exams and to schedule an annual exam in a year; All questions answered and the patient verbalized understanding. Instructed the patient to schedule annual exam in a year (2) Screen for STD (sexually transmitted disease): Code(s): Z11.3 - Encounter for screening for infections with a predominantly sexual mode of transmission Plan: STD screening tests done includes: BV panel for trichomonas, GC/CT will send patient for serology std screening for HIV, RPR, Hep b s Ag, HepC Ab. Instructions given the patient to schedule a follow-up appointment for repeat serology screen in 6 months for possible false negatives. (3) UTI (urinary tract infection): Code(s): N39.0 - Urinary tract infection, site not specified Plan: Urine dip was positive for leukocytes and microscopic blood. Urine culture sent. Will treat with Macrobid 100 mg p.o. b.i.d. for 5 days and repeat urine dip in 2 weeks. If urine culture is negative and microscopic hematuria is persistent will treat according (4) Microscopic hematuria: Code(s): R31.29 - Other microscopic hematuria Plan: Urine culture sent. Repeat urine dip in 2 weeks. If urine culture is negative and microscopic hematuria is persistent, will treat accordingly. All questions answered, the patient verbalized understanding. Orders: Orders AMB Urinalysis Automated Today Z13.9 - Encounter for screening, unspecified Hepatitis B Surface Antigen Today Z20.2 - Contact with and (suspected) exposure to infections with a predominantly sexual mode of transmission Hepatitis C Antibody Today Z20.2 - Contact with and (suspected) exposure to infections with a predominantly sexual mode of transmission HIV Ab/Ag Today Z20.2 - Contact with and (suspected) exposure to infections with a predominantly sexual mode of transmission Syphilis Screen Today Z20.2 - Contact with and (suspected) exposure to infections with a predominantly sexual mode of transmission Medications: New nitrofurantoin monohyd/m-cryst 100 mg (Macrobid) 100 mg PO BID 10 caps 0RF 5 days Coding Level of Care Code Est Pt Prev Care 40-64y(28296) Diagnoses Well woman exam Z01.419 Screen for STD (sexually transmitted disease) Z11.3 UTI (urinary tract infection) N39.0 Microscopic hematuria R31.29
== END 2022-09-27 08:48 | disposition home or self-care (01) ==
LOC: HO.HWS 08:04
PROVIDERS: PCP Internal Medicine; Visit Provider Obstetrics & Gynecology
DX: Z01.419 Encounter for gynecological examination (general) (routine) without abnormal findings (principal); Z11.3 Encounter for screening for infections with a predominantly sexual mode of transmission; N39.0 Urinary tract infection, site not specified; R31.29 Other microscopic hematuria; Z13.9 Encounter for screening, unspecified
CPT/HCPCS: 99396

== ENCOUNTER 2022-09-27 08:49 | Outpatient (REF) | payer OTHER, SELFPAY ==
[2022-09-27 11:20] LABS: HIV AB/AG Nonreactive (Nonreactive); HIV Num 1 0.06 S/CO (0.00-0.99); Hepatitis B Surface Antigen Negative (Negative); ~HepC Num1 0.06 S/CO (0.00-0.79); ~Hepatitis C Antibody Nonreactive (Nonreactive)
[2022-09-27 11:21] LABS: Syphilis Screen Reactive (Nonreactive)
[2022-10-04 11:02] LABS: RPR Quantitative Non-Reactive (Nonreactive); T.Pallidum Particle Agg Test Reactive (Nonreactive)
== END 2022-09-27 08:50 | disposition home or self-care (01) ==
LOC: HO.LAB 08:49
PROVIDERS: PCP Internal Medicine; Visit Provider Obstetrics & Gynecology
DX: Z11.4 Encounter for screening for human immunodeficiency virus [HIV] (principal); Z20.2 Contact with and (suspected) exposure to infections with a predominantly sexual mode of transmission
CPT/HCPCS: 36415; 86592; 86780; 86803; 87340; 87389

== ENCOUNTER → 2022-10-18 08:14 | Outpatient (BNVA) | payer OTHER, SELFPAY | PROVIDERS: PCP Internal Medicine; Visit Provider Obstetrics & Gynecology ==

== ENCOUNTER 2022-10-24 09:21 | Outpatient (REF) | payer OTHER, SELFPAY | END 2022-10-24 09:22 | disposition home or self-care (01) | LOC: HO.LAB 09:21 | PROVIDERS: PCP Internal Medicine; Visit Provider Obstetrics & Gynecology | DX: N39.0 Urinary tract infection, site not specified (principal); R31.29 Other microscopic hematuria | CPT/HCPCS: 81003; 87086; 87088; 87186; 99212 ==

== ENCOUNTER 2022-10-24 09:21 | Outpatient (AMB) | payer OTHER, SELFPAY ==
--- NOTE | 2022-10-24 09:24 | A.OFFVIS_ITS ---
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 Last urine culture was positive for E coli sensitive to nitrofurantoin, the patient was prescribed and completed a course of Macrobid 100 mg p.o. b.i.d. for 5 days. [facility] Medical History Migraine COPD (chronic obstructive pulmonary disease) Thrombocytopenia Overweight (BMI 25.0-29.9) Smoker Arthralgia Left hip pain Abdominal pain Anxiety and depression Degenerative arthritis Cellulitis of right ring finger Ankle pain, left Posttraumatic stress disorder Mild stress incontinence Lumbar radiculopathy DDD (degenerative disc disease), thoracolumbar Degenerative disc disease, cervical Vitamin D deficiency Carpal tunnel syndrome on both sides Fibromyalgia Insomnia Impaired fasting glucose Pure hypercholesterolemia Surgical History History of hip surgery History of tubal ligation Family History Father Diabetes Hypertension Mother Diabetes Hypertension Maternal Grandmother Renal disease Daughter Depression with anxiety Son Depression with anxiety Social History Housing: House Alcohol intake: current Alcohol intake frequency: 0-2 drinks per day Alcohol type: beer Patient Tobacco Use Status: Current everyday Tobacco user Tobacco use type: Cigarette Cigarette Packs Per Day: 0.5 Cigarettes Per Day: 10.0 Years Smoked: 10 Second Hand Smoke Exposure: Yes Substance Use Type: Marijuana Advance Directives Date on File: 12/02/19 service: No Current occupational status: disabled Cognitive needs: No Hearing needs: No Vision needs: Yes Female Reproductive History Menstrual Age of Menarche: 10 Review of Systems Const All systems reviewed & are unremarkable except as noted in HPI and below Reports as per HPI and Reports no additional complaints GI Reports no additional complaints Reports no additional complaints Physical Exam Vital Signs: Last Vital Signs BP 126/82 10/24/22 09:27 BMI result Body Mass Index 27.6 Assessment & Plan Assessment & Plan (1) Microscopic hematuria: Code(s): R31.29 - Other microscopic hematuria Plan: Urine dip repeat in the office showed persistent microscopic hematuria. Urine culture sent, will order CT scan of under the pannus and refer to urology. Discussed with the patient the possible causes of microscopic hematuria including but not limited to: interstitial cystitis, polyps, stones, masses, urethral inflammatory processes and others. All questions answered and the patient verbalized understanding. Orders: Orders CT abdomen pelvis wo/w IV con Today R31.29 - Other microscopic hematuria Referrals Urology Referral R31.29 - Other microscopic hematuria Coding Level of Care Code Est Pt Level 3 (73935) Diagnoses Microscopic hematuria R31.29
[2022-10-24 09:27] VITALS: BP 126/82; BMI 27.6
== END 2022-10-24 12:10 | disposition home or self-care (01) ==
PROVIDERS: PCP Internal Medicine; Visit Provider Obstetrics & Gynecology
DX: Z13.9 Encounter for screening, unspecified (principal); R10.2 Pelvic and perineal pain; R30.0 Dysuria; R31.29 Other microscopic hematuria
CPT/HCPCS: 99213

== ENCOUNTER 2022-10-27 16:58 | Emergency (ER) | payer OTHER, SELFPAY ==
[2022-10-27 17:03] VITALS: BMI 26.6
--- NOTE | 2022-10-27 17:03 | ED_ITS ---
HPI - Allergic Reaction General Chief complaint: Allergic Reaction Stated complaint: Allergic reaction to new med? Time Seen by Provider: 10/27/22 17:08 Source: patient, RN notes reviewed and old records reviewed Mode of arrival: ambulatory Limitations: no limitations History of Present Illness HPI narrative: 52-year-old female presents for evaluation of an itchy rash. Patient reports about an hour prior to arrival she developed itching and a rash to her entire body She reports that she started nitrofurantoin around 10:30 this morning This was about 6 hours prior to evaluation Patient reports that she had coffee and 2 small pieces of steak but had nothing else to eat today She denies any new soaps, lotions, detergents Denies any difficulty breathing, swallowing Patient took Benadryl 50 mg p.o. prior to coming in She denies having any known allergies Related Data Home Medications Medication Instructions Recorded Confirmed ibuprofen 400 mg tablet 400 mg PO Q8H 06/29/22 09/15/22 Previous Rx's Medication Instructions Recorded omeprazole 40 mg capsule,delayed 40 mg PO DAILY #90 caps 10/22/21 release simvastatin 20 mg tablet 20 mg PO BEDTIME #90 tabs 10/22/21 albuterol sulfate 90 mcg/actuation 2 puff inhalation Q6H PRN 01/17/22 aerosol inhaler (Ventolin HFA) shortness of breath or wheezing 30 days #8.5 grams trazodone 50 mg tablet 50 mg PO BEDTIME PRN for insomnia 03/02/22 #90 tabs cholecalciferol (vitamin D3) 25 25 mcg PO DAILY #30 tabs 03/28/22 mcg (1,000 unit) tablet metronidazole 500 mg tablet 500 mg PO BID 7 days #14 tabs 09/28/22 nitrofurantoin 100 mg PO BID 5 days #10 caps 10/25/22 monohydrate/macrocrystals 100 mg capsule (Macrobid) cefpodoxime 200 mg tablet 200 mg PO Q12H #10 tabs 10/27/22 epinephrine 0.3 mg/0.3 mL 0.3 mg (0.3 mL) IM Q4H PRN 10/27/22 injection, auto-injector (EpiPen) anaphylaxis #2 ea prednisone 20 mg tablet 40 mg (2 x 20 mg) PO DAILY #6 tabs 10/27/22 Allergies Allergy/AdvReac Type Severity Reaction Status Date / Time No Known Allergies Allergy Verified 10/24/22 09:32 [No Known Allergies*] Review of Systems Constitutional: Constitutional: Denies chills and Denies fever(s) ENT: Denies throat swelling and Denies tongue swelling Cardiovascular: Cardiovascular: Denies chest pain and Denies dyspnea Respiratory: Respiratory: Denies cough and Denies dyspnea Gastrointestinal: Gastrointestinal: Denies nausea and Denies vomiting Integumentary/Breasts: Skin/Breast: Reports pruritus and Reports rash Allergic/Immunologic: Allergic/Immunologic: Denies throat swelling and Denies tongue swelling PMFSH Past Medical History Medical History Migraine COPD (chronic obstructive pulmonary disease) Thrombocytopenia Overweight (BMI 25.0-29.9) Smoker Arthralgia Left hip pain Abdominal pain Anxiety and depression Degenerative arthritis Cellulitis of right ring finger Ankle pain, left Posttraumatic stress disorder Mild stress incontinence Lumbar radiculopathy DDD (degenerative disc disease), thoracolumbar Degenerative disc disease, cervical Vitamin D deficiency Carpal tunnel syndrome on both sides Fibromyalgia Insomnia Impaired fasting glucose Pure hypercholesterolemia Surgical History History of hip surgery History of tubal ligation Family History Family History Father Diabetes Hypertension Mother Diabetes Hypertension Maternal Grandmother Renal disease Daughter Depression with anxiety Son Depression with anxiety Social History Social History Housing: House Alcohol intake: current Alcohol intake frequency: 0-2 drinks per day Alcohol type: beer Patient Tobacco Use Status: Current everyday Tobacco user Tobacco use type: Cigarette Cigarette Packs Per Day: 0.5 Cigarettes Per Day: 10.0 Years Smoked: 10 Second Hand Smoke Exposure: Yes Substance Use Type: Marijuana Advance Directives: No Advance Directives Information Provided: No Advance Directives Date on File: 12/02/19 service: No Current occupational status: disabled Cognitive needs: No Hearing needs: No Vision needs: Yes Physical Exam ED Vital Signs: Vital Signs - 24 hr 10/27/22 17:11 10/27/22 18:13 Temperature 97.9 F 98.2 F Pulse Rate 110 H 76 Respiratory Rate 16 16 Blood Pressure 120/64 124/67 Pulse Oximetry 98 96 Oxygen Delivery Method Room Air Room Air BMI result Body Mass Index 26.6 Const General: healthy appearing, no acute distress, alert and awake Nutritional Appearance: well nourished Orientation/consciousness: patient oriented x3 HENMT Other: No oral or perioral retropharyngeal edema Head: Yes normocephalic and Yes atraumatic Throat: Yes posterior oropharynx normal Eyes Eyelids: Yes eyelids normal Conjunctivae: conjunctivae normal Sclerae: sclerae normal Corneas: corneas normal Pupils: Equal, round and reactive pupils present EOM: EOMs intact bilaterally Neck Neck: Yes full ROM Resp Effort & Inspection: normal respiratory effort, able to speak in complete sentences, no audible wheezes, not labored and no stridor Auscultation: clear to auscultation bilaterally Skin Other: Patient has diffuse urticaria throughout her body including all 4 extremities, t orso General skin exam: elasticity normal Neuro General: patient oriented x3 Cranial nerves: Yes Equal, round and reactive pupils present and Yes Bilaterally intact EOM present Cognition (Neuro): normal cognition Extrem Other: Moving all extremities well without any obvious deformities Course Course Course Narrative: This is an RME: Additional HPI, ROS, PE not included below will be deferred to primary provider. [id number], with no known medical problems, presenting to the ER with complaints of diffuse body itching x 1 hour ago. Reevaluation(s) Reevaluation #1: Patient reports her itching is beginning to improve. She still complains of an itchy rash. Still no airway involvement Time: 17:46 Reevaluation #2: Patient's symptoms have resolved. She is stable for discharge at this time. I had lengthy discussion with the patient, that we have to assume the antibiotic she took was the cause as she tried nothing else out of the ordinary to explain the allergic reaction. We will change her nitrofurantoin to cefpodoxime. We will discharge the patient with a short course of prednisone and epi pens. She was educated on how to use the EpiPen psis and not to use them strictly for a rash. Time: 19:35 Medications Administered Discontinued Medications Generic Name Dose Route Start Last Admin Trade Name Freq PRN Reason Stop Dose Admin Famotidine 20 mg 10/27/22 17:15 10/27/22 17:16 Famotidine/Pf 20 Mg/2 Ml Vial IVPUSH 10/27/22 17:16 20 mg ONCE ONE Administration Methylprednisolone Sodium Succinate 125 mg 10/27/22 17:06 10/27/22 17:16 Methylprednisolone Sod Succ 125 Mg/2 Ml Vial IVPUSH 10/27/22 17:07 125 mg ONCE ONE Administration Medical Decision Making Medical Decision Making [facility] Narrative: 52-year-old female presents for evaluation of an itchy rash. It is consistent dermatitis. The patient took nitrofurantoin about 6 hours prior to the onset of her symptoms. It is unclear if this is the cause of the symptoms as I would expect the rash developed sooner than 6 hours after ingesting the medication. However she has no or obvious cause of the allergic dermatitis. Patient will be treated with Pepcid, Solu-Medrol in addition to the Benadryl she already took. There is no evidence of airway involvement, so we will withhold EpiPen at this time. Patient will be followed closely Differential Diagnosis Differential Diagnoses: The differential diagnosis associated with the presentation includes contact dermatitis Allergic dermatitis Acute rash Urticaria Anaphylactic Discharge Plan Discharge Clinical Impression: Allergic dermatitis Patient Disposition: Home, Self-Care Instructions: General Allergic Reaction (ED) Additional Instructions: It is not clear what your allergy was to, but we have to assume it was the antibiotic you were taking. Stop taking the nitrofurantoin and instead you should take cefpodoxime twice daily for the next 5 days Use Benadryl every 4-6 hours as needed for itching and rash This will make you sleepy, do not drink alcohol or drive after taking it Take prednisone 40 mg daily for the next 3 days Your prescribed an EpiPen that you should only use if you have an allergic reaction that is involving difficulty breathing, swallowing or shortness of breath Do not use it strictly for an itchy rash Prescriptions: New prednisone 20 mg tablet 40 mg PO DAILY Qty: 6 0RF epinephrine [EpiPen] 0.3 mg/0.3 mL auto-injector 0.3 mg IM Q4H PRN (Reason: anaphylaxis) Qty: 2 0RF cefpodoxime 200 mg tablet 200 mg PO Q12H Qty: 10 0RF Rx Instructions: must administer with a meal/food No Action simvastatin 20 mg tablet 20 mg PO BEDTIME Qty: 90 1RF omeprazole 40 mg capsule,delayed release(DR/EC) 40 mg PO DAILY Qty: 90 1RF albuterol sulfate [Ventolin HFA] 90 mcg/actuation HFA aerosol inhaler 2 puff inhalation Q6H PRN (Reason: shortness of breath or wheezing) 30 Days Qty: 8.5 1RF cholecalciferol (vitamin D3) 25 mcg (1,000 unit) tablet 25 mcg PO DAILY Qty: 30 1RF metronidazole 500 mg tablet 500 mg PO BID 7 Days Qty: 14 0RF nitrofurantoin monohyd/m-cryst [Macrobid] 100 mg capsule 100 mg PO BID 5 Days Qty: 10 0RF trazodone 50 mg tablet 50 mg PO BEDTIME PRN (Reason: for insomnia) Qty: 90 1RF ibuprofen 400 mg tablet 400 mg PO Q8H
[2022-10-27 17:11] VITALS: BP 120/64; PULSE 110; RESP 16; TEMP 36.6; O2SAT 98
--- NOTE | 2022-10-27 17:13 | MHC.EDTECH ---
this pct assumed care of pt ,vitals sign taken ,pt was hooked up to residential monitor .
[2022-10-27] MEDS: Famotidine/PF 20 MG/2 ML VIAL IVPUSH (17:16)
[2022-10-27] MEDS: methylPREDNISolone Sod Succ 125 MG/2 ML VIAL IVPUSH (17:16)
[2022-10-27 18:13] VITALS: BP 124/67; PULSE 76; RESP 16; TEMP 36.8; O2SAT 96
== END 2022-10-27 19:54 | disposition home or self-care (01) ==
PROVIDERS: Emergency Provider Internal Medicine; PCP Internal Medicine
DX: L23.9 Allergic contact dermatitis, unspecified cause (principal); E78.00 Pure hypercholesterolemia, unspecified; F17.210 Nicotine dependence, cigarettes, uncomplicated; Z79.899 Other long term (current) drug therapy
CPT/HCPCS: 96374; 96375; 99284; J2930

== ENCOUNTER 2022-11-01 12:47 | Emergency (ER) | payer OTHER, SELFPAY ==
--- NOTE | ~2022-11-01 | CT_ITS ---
EXAMINATION: CT HEAD WITHOUT CONTRAST CLINICAL INFORMATION: Headache with right-sided pain and weakness COMPARISON: 02/10/2019 TECHNIQUE: Contiguous axial imaging was performed from the skull base to vertex without intravenous administration of contrast. This CT examination was performed using dose optimization techniques as appropriate, variously including the following: *Automated exposure control *Adjustment of mA and/or kV according to patient size (this includes techniques or standardized protocols for targeted exams where dose is matched to indication/reason for exam; i.e. extremities or head) *Use of iterative reconstruction technique DLP: 643 mGy-cm FINDINGS: The ventricles and sulci are normal in size and configuration. No acute hemorrhage, mass effect or shift is evident. Cleaning-white differentiation is maintained. In the posterior fossa, the brainstem, cerebellum and fourth ventricle image normally. The orbits and calvarium are intact. The paranasal sinuses and mastoid air cells are well pneumatized and clear. CT/CT head/brain wo IV con IMPRESSION: 1. Unremarkable noncontrast brain CT. No acute hemorrhage, mass effect or shift.
--- NOTE | ~2022-11-01 | US_ITS ---
EXAMINATION: US VENOUS ULTRASOUND WITH DOPPLER LOWER EXTREMITY, RIGHT CLINICAL INFORMATION: Right lower extremity swelling. COMPARISON: None available. TECHNIQUE: Ultrasound of the deep veins is performed from the hip to the calf with compression sonography and color and pulse Doppler assessment. Spectral analysis with color-flow imaging is performed. FINDINGS: There is normal venous compression and respiratory variation and augmented flow. The visualized common femoral vein, superficial femoral vein, profunda femoral vein, popliteal vein, and the trifurcation region shows no evidence of deep venous thrombosis. There is a 7.3 x 2.2 x 3 cm Barnhart's cyst. If the patient's symptoms persist, followup ultrasound in 5 days 7 days might be of value to exclude proximal propagation from a non-visualized calf vein. US/US venous duplex LE RT IMPRESSION: No DVT demonstrated in the right lower extremity.
--- NOTE | ~2022-11-01 | XR_ITS ---
EXAMINATION: XR KNEE, RIGHT CLINICAL INFORMATION: Knee pain and swelling COMPARISON: 03/03/2022 TECHNIQUE: Four views of the right knee. FINDINGS: There is a moderate suprapatellar effusion. No fracture or dislocation is evident. Mild lateral tibial and femoral osteophyte formation is evident. Joint spaces are preserved. XR/XR knee RT 3V IMPRESSION: 1. Moderate suprapatellar effusion. 2. Mild lateral compartment osteoarthrosis with osteophyte formation.
[2022-11-01 12:59] VITALS: BP 142/83; PULSE 80; RESP 18; TEMP 36.3; O2SAT 98; BMI 27.2
--- NOTE | 2022-11-01 12:59 | ED_ITS ---
HPI - Allergic Reaction General Chief complaint: General Medical Stated complaint: Head Arm Leg Pain No Injury Time Seen by Provider: 11/01/22 13:16 Source: patient, RN notes reviewed and old records reviewed Mode of arrival: ambulatory Limitations: no limitations History of Present Illness HPI narrative: 52 yo female with history of HLD, Vitamin D deficiency presents to ED c/o VIDAL > behind right eye, right-sided tinnitus, weakness/fatigue, & RUE/RLE pain/swelling, and paresthesias x2 days. Reports 2 days ago she had severe, constant, throbbing, right frontal and temporal headache. Of note patient was treated in our ED on 10/27 s/p allergic reaction suspected from Macrobid. Denies current headache, confusion, dizziness/ Lightheadedness, change in vision, fevers, chest pain, shortness of breath, abdominal pain, nausea, vomiting, diarrhea, urinary symptoms. Denies recent travel, surgery, trauma. Reports intermittent smoking history, currently 1/2 PPD for 3 years. Related Data Home Medications Medication Instructions Recorded Confirmed ibuprofen 400 mg tablet 400 mg PO Q8H 06/29/22 09/15/22 Previous Rx's Medication Instructions Recorded omeprazole 40 mg capsule,delayed 40 mg PO DAILY #90 caps 10/22/21 release simvastatin 20 mg tablet 20 mg PO BEDTIME #90 tabs 10/22/21 albuterol sulfate 90 mcg/actuation 2 puff inhalation Q6H PRN 01/17/22 aerosol inhaler (Ventolin HFA) shortness of breath or wheezing 30 days #8.5 grams trazodone 50 mg tablet 50 mg PO BEDTIME PRN for insomnia 03/02/22 #90 tabs cholecalciferol (vitamin D3) 25 25 mcg PO DAILY #30 tabs 03/28/22 mcg (1,000 unit) tablet metronidazole 500 mg tablet 500 mg PO BID 7 days #14 tabs 09/28/22 nitrofurantoin 100 mg PO BID 5 days #10 caps 10/25/22 monohydrate/macrocrystals 100 mg capsule (Macrobid) cefpodoxime 200 mg tablet 200 mg PO Q12H #10 tabs 10/27/22 epinephrine 0.3 mg/0.3 mL 0.3 mg (0.3 mL) IM Q4H PRN 10/27/22 injection, auto-injector (EpiPen) anaphylaxis #2 ea prednisone 20 mg tablet 40 mg (2 x 20 mg) PO DAILY #6 tabs 10/27/22 Allergies Allergy/AdvReac Type Severity Reaction Status Date / Time nitrofurantoin Allergy Hives Verified 11/01/22 12:59 [From Macrobid] Review of Systems 2 Review of Systems: Constitutional: No Fever, + Chills ENT/Mouth: No Ear Pain, No Nasal Congestion, No sore throat, No Rhinorrhea, + right-sided tinnitus Cardiovascular: No Chest Pain, No SOB Respiratory: No Cough, No Wheezing Gastrointestinal: No Nausea, No Vomiting, No Diarrhea, No Constipation, No Abdominal pain Genitourinary: No Dysuria, No Urinary Frequency, No Hematuria, No Urgency, No Flank Pain Musculoskeletal: + joint pain, + Myalgias, + Joint Swelling Skin: No Skin Lesions, No rash Neuro: +Weakness, + Numbness, + Paresthesias Yes all other systems are reviewed and are negative Constitutional: Constitutional: Reports as per HPI Eyes: Eyes: Reports photophobia (Right eye) [facility] Past Medical History Attestation statement: The following information was validated with the patient. Source: old records reviewed Medical History Migraine COPD (chronic obstructive pulmonary disease) Thrombocytopenia Overweight (BMI 25.0-29.9) Smoker Arthralgia Left hip pain Abdominal pain Anxiety and depression Degenerative arthritis Cellulitis of right ring finger Ankle pain, left Posttraumatic stress disorder Mild stress incontinence Lumbar radiculopathy DDD (degenerative disc disease), thoracolumbar Degenerative disc disease, cervical Vitamin D deficiency Carpal tunnel syndrome on both sides Fibromyalgia Insomnia Impaired fasting glucose Pure hypercholesterolemia Surgical History History of hip surgery History of tubal ligation Family History Family History Father Diabetes Hypertension Mother Diabetes Hypertension Maternal Grandmother Renal disease Daughter Depression with anxiety Son Depression with anxiety Social History Social History Housing: House Alcohol intake: current Alcohol intake frequency: 0-2 drinks per day Alcohol type: beer Patient Tobacco Use Status: Current everyday Tobacco user Tobacco use type: Cigarette Cigarette Packs Per Day: 0.5 Cigarettes Per Day: 10.0 Years Smoked: 10 Second Hand Smoke Exposure: Yes Substance Use Type: Marijuana Advance Directives: No Advance Directives Date on File: 12/02/19 service: No Current occupational status: disabled Cognitive needs: No Hearing needs: No Vision needs: Yes Physical Exam ED Vital Signs: Vital Signs - 24 hr 11/01/22 12:59 11/01/22 14:30 11/01/22 16:55 Temperature 97.4 F 98.2 F 98.3 F Pulse Rate 80 70 62 Respiratory Rate 18 18 15 Blood Pressure 142/83 H 142/80 H 137/78 Pulse Oximetry 98 99 99 Oxygen Delivery Method Room Air Room Air Room Air BMI result Body Mass Index 27.2 Const General: cooperative, healthy appearing, comfortable, no acute distress, well developed, alert and awake Orientation/consciousness: patient oriented x3 Limitations: no limitations HENMT Head: Yes normal to inspection and Yes atraumatic Ears: hearing grossly normal bilaterally General nose exam: Normal external nose present Face and sinus: Yes normal facial exam Mouth: Normal oral and palatal mucosa present Throat: Yes posterior oropharynx normal, Yes uvula midline and No uvula laterally displaced Eyes General: appearance normal, both eyes and all related structures Alignment and Position: alignment normal Pupils: Equal, round and reactive pupils present and Pupil accommodation reflex normal EOM: EOMs intact bilaterally Direct Ophthalmoscopy: normal light reflex and photophobia (Right eye) Neck Neck: Yes normal visual inspection, Yes no meningeal signs and No anterior neck swelling Resp Effort & Inspection: normal respiratory effort, able to speak in complete sentences and no respiratory distress Auscultation: clear to auscultation bilaterally and no wheezes Cardio Rate: regular rate Rhythm: regular rhythm Heart sounds: S1 normal heart sound present and S2 normal heart sound present GI Inspection: Yes normal to inspection Palpation (GI): Soft to palpation, nontender, no guarding and not rigid Back/Spine/Pelvis Other: No midline cervical/thoracic/lumbar spinous tenderness/step-off or deformity Skin Rashes: no rashes Wounds: no wounds Neuro Other: No facial swelling. General: patient oriented x3, gait normal, tone normal, moves all extremities, no meningeal signs, no focal motor deficits and CN's II-XI intact bilaterally Cranial nerves: Yes CN's II-XII intact bilaterally, Yes Equal, round and reactive pupils present, Yes Bilaterally intact EOM present, Yes Nystagmus not present and Yes Midline tongue present Gait exam (Neuro): Antalgic gait present (2/2 right knee pain) and not ataxic Motor exam (neuro): strength not 5/5 throughout (4/5 strength with right knee flexion and extension.) and Normal motor muscle tone present throughout Extrem Other: right knee with appreciable swelling/ effusion. No erythema / warmth. Mildly tender to palpation. Limited flexion secondary to pain. Neurovascular intact distally. No LE pitting edema or calf tenderness General: Yes normal to inspection, Yes full ROM and Yes capillary refill normal Course Course Course Narrative: This is an RME: Additional HPI, ROS, PE not included below will be deferred to primary provider. This is a 52-year-old female presents emergency department with complaints of right leg pain and swelling and right-sided facial swelling. Patient denies any chest pain or shortness of breath. No difficulty swallowing or breathing. Patient was seen several days ago for an allergic reaction to an antibiotic. She was on antibiotics for urinary tract infection, no urinary symptoms at this time. No obvious swelling to her face, airways patent, patient under no acute distress, endorsing some pain to the right lower calf. Plan: Labs, ultrasound -[id number]-- labs reassuring including negative troponin US venous duplex LE RT IMPRESSION: No DVT demonstrated in the right lower extremity. XR knee RT 3V IMPRESSION: 1. Moderate suprapatellar effusion. 2. Mild lateral compartment osteoarthrosis with osteophyte formation. >> Lee wrap applied for comfort/ stability CT head/brain wo IV con IMPRESSION: 1. Unremarkable noncontrast brain CT. No acute hemorrhage, mass effect or shift. - UA negative Results discussed with patient including worrisome signs and symptoms and strict return precautions, and when to return to the emergency department. They verbalized understanding and feel safe for discharge at this time. Medical Decision Making Medical Decision Making MDM Narrative: 52 yo female with history of HLD, Vitamin D deficiency presents to ED c/o VIDAL > behind right eye, right-sided tinnitus, weakness/fatigue, & RUE/RLE pain/swelling, and paresthesias x2 days. on exam vital signs stable, NAD, no focal neuro deficits, right knee with swelling and tenderness. Limited or was secondary to pain. Ambulating with steady gait. No ataxia. Concern for knee sprain/ tendon/ligamental injury vs ?fx vs complicated migraine headache vs viral syndrome vs metabolic abnormalities. Lower suspicion for DVT, PAD, CVA/TIA or dissection Plan: EKG, labs, UA, venous duplex ultrasound ordered in triage, knee x-ray, head CT, reassess. Please refer to course for remaining clinical decision making, interpretation of labs/imaging results, and discussions with consultants and/or family members. Differential Diagnosis Differential Diagnoses: The differential diagnosis associated with the presentation includes As above Admission/Observation Consideration of admission/observation: Escalation of care including admission/observation considered Lab Data MDM Lab Attestation statement: I reviewed the patient's lab results. 11/01/22 13:47 11/01/22 13:47 Labs: Lab Results 11/01/22 11/01/22 11/01/22 Range/Units 13:47 15:37 16:54 WBC 10.4 (4.8-10.8) X10*3/uL RBC 4.20 (4.20-5.50) X10*6/uL Hgb 13.9 (12.0-16.0) g/dl Hct 41.4 (37.0-47.0) % MCV 98.6 H (80.0-98.0) fL MCH 33.1 H (27.0-33.0) pg MCHC 33.6 (31.0-35.0) g/dl RDW 13.3 (11.0-16.0) % Plt Count 192 (160-400) X10*3/uL MPV 12.3 (9.4-12.3) fL Immature Gran % (Auto) 0.8 H (0.0-0.4) % Neut % (Auto) 54.7 (45-73) % Lymph % (Auto) 37.5 (20-40) % [place] % (Auto) 5.6 (2-11) % Eos % (Auto) 0.9 (0-4) % Baso % (Auto) 0.5 (0-2) % Lymph # (Auto) 3.9 (1.2-4.9) X10*3/uL [place] # (Auto) 0.6 (0.1-1.2) X10*3/uL Eos # (Auto) 0.1 (0.0-0.4) X10*3/uL Baso # (Auto) 0.1 (0.0-0.2) X10*3/uL Abs Immat Gran (auto) 0.08 H (0.00-0.03) X10*3/uL Absolute Neuts (auto) 5.7 (2.0-8.3) x10*3/uL Absolute Nucleated RBC 0.000 (0.0-0.012) X10*3/uL Nucleated RBC % (auto) 0.0 (0.0-0.2) /100WBC PT 10.7 L (11.1-13.3) SEC INR 0.9 (0.9-1.1) Sodium 140 (135-145) mmol/L Potassium 4.2 (3.3-5.1) mmol/L Chloride 106 (96-108) mmol/L Carbon Dioxide 27 (22-29) mmol/L Anion Gap 11 L (12-20) BUN 15 (9-16) mg/dL Creatinine 0.93 (0.5-1.4) mg/dL Estim Creat Clear Calc 74.8 Estimated GFR > 60 Random Glucose 102 (60-115) mg/dL Calcium 9.8 D (8.4-10.2) mg/dL Magnesium 1.9 (1.6-2.6) mg/dL Total Bilirubin 0.4 (0.0-1.0) mg/dL Direct Bilirubin 0.1 (0.0-0.5) mg/dL AST 21 (5-31) U/L ALT 17 (0-31) U/L Alkaline Phosphatase 75 (39-117) U/L Troponin I High Sens < 2.7 (<3.5-17.0) ng/L Total Protein 7.1 (6.5-8.0) g/dL Albumin 4.6 (3.5-5.0) g/dL Urine Color Yellow Urine Appearance Clear Urine pH 6.0 (5.0-9.0) Ur Specific [place] 1.010 (1.005-1.025) Urine Protein Negative (Neg-Trace) mg/dL Urine Glucose (UA) Negative (Negative) mg/dL Urine Ketones Negative (Negative) mg/dL Urine Blood Negative (Negative) Urine Nitrite Negative (Negative) Ur Leukocyte Esterase Trace H (Negative) Urine RBC 0-2 (0-2) /HPF Urine WBC 0-5 (0-5) /HPF Ur Squamous Epith Cells 0-2 (0-2) /HPF Urine Bacteria None Seen (None Seen) Hyaline Casts 0-2 (0-2) /LPF Independent Interpretation I performed an independent interpretation of an: EKG ( my interpretation EKG is normal sinus rhythm at a rate is 75. QRS 72. QTC 446. No significant change when compared prior. No STEMI) Radiology Impression Discussion of test interpretation with radiology: I have reviewed the radiologist's reading. Independent Historian Clinical information obtained from an independent historian. History obtained from or confirmed by: Spouse External Record Review External record reviewed: Inpatient record, Office record, Outpatient record, Prior outpatient labs, Prior outpatient radiology, Primary care record and Outside ED record Tests considered The following testing was considered but not selected: As above Discharge Plan Discharge Clinical Impression: Suprapatellar effusion of knee, Headache Patient Disposition: Home, Self-Care Instructions: Acute Headache (DC), Swollen Knee Joint (ED) Additional Instructions: your knee x-ray shows a suprapatellar effusion. Please follow-up with her doctor. Wear Lee wrap for comfort and stability. Ice and elevate Your blood work, ultrasound and head CT were reassuring Please stay hydrated. Take Tylenol and Motrin as needed for headache Is symptoms persist or worsen return to the ED Prescriptions: No Action simvastatin 20 mg tablet 20 mg PO BEDTIME Qty: 90 1RF omeprazole 40 mg capsule,delayed release(DR/EC) 40 mg PO DAILY Qty: 90 1RF albuterol sulfate [Ventolin HFA] 90 mcg/actuation HFA aerosol inhaler 2 puff inhalation Q6H PRN (Reason: shortness of breath or wheezing) 30 Days Qty: 8.5 1RF cholecalciferol (vitamin D3) 25 mcg (1,000 unit) tablet 25 mcg PO DAILY Qty: 30 1RF metronidazole 500 mg tablet 500 mg PO BID 7 Days Qty: 14 0RF nitrofurantoin monohyd/m-cryst [Macrobid] 100 mg capsule 100 mg PO BID 5 Days Qty: 10 0RF prednisone 20 mg tablet 40 mg PO DAILY Qty: 6 0RF epinephrine [EpiPen] 0.3 mg/0.3 mL auto-injector 0.3 mg IM Q4H PRN (Reason: anaphylaxis) Qty: 2 0RF cefpodoxime 200 mg tablet 200 mg PO Q12H Qty: 10 0RF Rx Instructions: must administer with a meal/food trazodone 50 mg tablet 50 mg PO BEDTIME PRN (Reason: for insomnia) Qty: 90 1RF ibuprofen 400 mg tablet 400 mg PO Q8H Referrals: Andreas Christensen MD [Primary Care Provider] -
[2022-11-01 13:54] LABS: MANUAL DIFF FLAG NO
[2022-11-01 13:56] LABS: Basophils Absolute Auto 0.1 X10*3/uL (0.0-0.2); Basophils Percent Auto 0.5 % (0-2); Eosinophils Absolute Auto 0.1 X10*3/uL (0.0-0.4); Eosinophils Percent Auto 0.9 % (0-4); Hematocrit 41.4 % (37.0-47.0); Hemoglobin 13.9 g/dl (12.0-16.0); Imm Gran Abs Auto 0.08 X10*3/uL (0.00-0.03); Imm Gran Pct Auto 0.8 % (0.0-0.4); Lymphocytes Absolute Auto 3.9 X10*3/uL (1.2-4.9); Lymphocytes Percent Auto 37.5 % (20-40); Mean Corpuscular HGB Conc 33.6 g/dl (31.0-35.0); Mean Corpuscular Hemoglobin 33.1 pg (27.0-33.0); Mean Corpuscular Volume 98.6 fL (80.0-98.0); Mean Platelet Volume 12.3 fL (9.4-12.3); Monocytes Absolute Auto 0.6 X10*3/uL (0.1-1.2); Monocytes Percent Auto 5.6 % (2-11); Neutrophils Absolute Auto 5.7 x10*3/uL (2.0-8.3); Neutrophils Percent Auto 54.7 % (45-73); Platelet Count 192 X10*3/uL (160-400); Red Cell Distribution Width 13.3 % (11.0-16.0); White Blood Count 10.4 X10*3/uL (4.8-10.8)
[2022-11-01 14:20] LABS: Alanine Aminotransferase 17 U/L (0-31); Albumin Level 4.6 g/dL (3.5-5.0); Alkaline Phosphatase 75 U/L (39-117); Anion Gap 11 (12-20); Aspartate Amino Transferase 21 U/L (5-31); Bilirubin Direct 0.1 mg/dL (0.0-0.5); Bilirubin Total 0.4 mg/dL (0.0-1.0); Blood Urea Nitrogen 15 mg/dL (9-16); Calcium 9.8 mg/dL (8.4-10.2); Carbon Dioxide 27 mmol/L (22-29); Chloride 106 mmol/L (96-108); Creatinine Clr Calc Pharmacy 74.8; Estimated Glomerular Filt Rate > 60; Glucose Random 102 mg/dL (60-115); Potassium 4.2 mmol/L (3.3-5.1); Sodium 140 mmol/L (135-145); Total Protein 7.1 g/dL (6.5-8.0)
[2022-11-01 14:30] VITALS: BP 142/80; PULSE 70; RESP 18; TEMP 36.8; O2SAT 99
--- NOTE | 2022-11-01 14:58 | ECG_ITS ---
Test Reason : weakness Blood Pressure : / mmHG Vent. Rate : 075 BPM Atrial Rate : 075 BPM P-R Int : 136 ms QRS Dur : 072 ms QT Int : 400 ms P-R-T Axes : 039 043 027 degrees QTc Int : 446 ms Normal sinus rhythm Normal ECG When compared with ECG of 10-FEB-2022 02:11, No significant change was found Referred By: Ena Rueda Electronically Signed By:RODRIGUEZ RUSH
[2022-11-01 15:37] LABS: Magnesium 1.9 mg/dL (1.6-2.6)
[2022-11-01 16:01] LABS: INTERNATIONAL NORM RATIO 0.9 (0.9-1.1); Prothrombin Time 10.7 SEC (11.1-13.3)
[2022-11-01 16:16] LABS: Troponin-I High Sensitivity < 2.7 ng/L (<3.5-17.0)
[2022-11-01 16:55] VITALS: BP 137/78; PULSE 62; RESP 15; TEMP 36.8; O2SAT 99
[2022-11-01 17:05] LABS: Appearance Urine Clear; Color Urine Yellow; Glucose Urine UA Negative (Negative); Leukocyte Esterase Urine Trace (Negative); Nitrite Urine Negative (Negative); UMIC TRIGGER UACC YES; Urine Blood Negative (Negative); Urine Ketones Negative (Negative); Urine Protein Negative (Neg-Trace)
[2022-11-01 17:26] LABS: Bacteria Urine None Seen (None Seen); Hyaline Casts Urine 0-2 /LPF (0-2); RBC Urine 0-2 /HPF (0-2); Squamous Epithelial Cell Urine 0-2 /HPF (0-2); WBC Urine 0-5 /HPF (0-5)
== END 2022-11-01 17:43 | disposition home or self-care (01) ==
PROVIDERS: Physician Assistant; Physician Assistant Medical; Emergency Provider Emergency Medicine; PCP Internal Medicine
DX: R51.9 Headache, unspecified (principal); M25.461 Effusion, right knee; M79.604 Pain in right leg; E78.00 Pure hypercholesterolemia, unspecified; F17.210 Nicotine dependence, cigarettes, uncomplicated; F12.90 Cannabis use, unspecified, uncomplicated; Z79.899 Other long term (current) drug therapy
CPT/HCPCS: 36415; 70450; 73562; 80048; 80076; 81001; 83735; 84484; 85025; 85610; 93005; 93971; 99284

== ENCOUNTER 2022-11-15 17:23 | Outpatient (AMB) | payer OTHER, SELFPAY ==
[2022-11-15 17:23] VITALS: BP 126/82; PULSE 117; O2SAT 97; BMI 27.6
--- NOTE | 2022-11-15 17:23 | A.OFFPC_ITS ---
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: No Accompanied by: Self / Same As Patient Allergies nitrofurantoin [From Macrobid] Allergy (Verified 11/15/22 17:38) Hives Medication List - Last Reconciled 11/15/22 by Andreas Christensen MD albuterol sulfate 90 mcg/actuation (Ventolin HFA) 2 puffs inhalation Q6H PRN 30 days cholecalciferol (vitamin D3) 25 mcg PO DAILY epinephrine (EpiPen) 0.3 mg (0.3 mL) IM Q4H PRN ibuprofen 400 mg PO Q8H omeprazole 40 mg PO DAILY simvastatin 20 mg PO BEDTIME trazodone 50 mg PO BEDTIME PRN Tobacco use date assessed: 11/15/22 Dental Screening Dental Screen Date: 11/15/22 Did you have a dental visit in the last 12 months?: Yes Did you have a dental problem in the last 6 months where you did not have access to dental care?: No Was dental information given to patient?: Patient has dentist HPI [facility]-10/27-allergic reaction HPI Details Patient comes in today for her [facility] follow up visit She apparently developed an allergic reaction to Nitrofurantoin when she was started on this for a urinary tract infection a couple of weeks ago Patient went to the ER when she started breaking out in an itchy rash all over her body a couple of hours after she took her first dose of the medication She was given some oral prednisone in the ER (she already took some Benadryl on her own prior to going to the ER) and was switched over to Cefpodoxime for her UTI, which she completed without any problems Wants to know if she should be referred for allergy testing at this time considering what happened recently Patient went back to the ER a few days later for increasing headaches and a head CT done came out normal Relates that she still gets on and off headaches that usually start out as a pressure-like sensation behind her eyes States that she would then just close her eyes and keep herself in a dark room for a while to allow time for her headaches to subside Taking Ibuprofen also helps with her headaches States that she just had her eye exam done a few days ago and was told that her eye exam was completely normal She has noticed some nausea at times when she has her headaches and states that these headaches occur on average about 2 to 3 times a week at the most She denies any dizziness Denies any chest pains, no increased SOB No vomiting, no abdominal pain and no change in bowel habits noted She also continues to experience increased pain over her right knee, which she states has been bothering her for about 6 months now X-rays of the knee done a few months ago reportedly showed (+) arthritis changes Would like to know what she can do for her knee at this time and was surprised when we told her that she has an scheduled appointment with orthopedics coming up next week on 11/24/22 for her right knee pain already - is obviously advised to keep her appt then Adds that she continues to have trouble sleeping at night often and that her Trazodone 50 mg has not been helping her much lately [facility] Medical History Migraine COPD (chronic obstructive pulmonary disease) Thrombocytopenia Overweight (BMI 25.0-29.9) Smoker Arthralgia Left hip pain Abdominal pain Anxiety and depression Degenerative arthritis Cellulitis of right ring finger Ankle pain, left Posttraumatic stress disorder Mild stress incontinence Lumbar radiculopathy DDD (degenerative disc disease), thoracolumbar Degenerative disc disease, cervical Vitamin D deficiency Carpal tunnel syndrome on both sides Fibromyalgia Insomnia Impaired fasting glucose Pure hypercholesterolemia Surgical History History of hip surgery History of tubal ligation Family History Father Diabetes Hypertension Mother Diabetes Hypertension Maternal Grandmother Renal disease Daughter Depression with anxiety Son Depression with anxiety Social History Housing: House Alcohol intake: current Alcohol intake frequency: 0-2 drinks per day Alcohol type: beer Patient Tobacco Use Status: Current everyday Tobacco user Tobacco use type: Cigarette Cigarette Packs Per Day: 0.5 Cigarettes Per Day: 10.0 Years Smoked: 10 e-Cigarette/Vaping Use: Never Used Second Hand Smoke Exposure: Yes Substance Use Type: Marijuana Advance Directives Date on File: 12/02/19 service: No Current occupational status: disabled Cognitive needs: No Hearing needs: No Vision needs: Yes Female Reproductive History Menstrual Age of Menarche: 10 Questionnaire PHQ-9 Over the last 2 weeks, how often have you been bothered by any of the following problems? 1. Little interest or pleasure in doing things: nearly every day 2. Feeling down, depressed, or hopeless: nearly every day 3. Trouble falling or staying asleep, or sleeping too much: nearly every day 4. Feeling tired or having little energy: nearly every day 5. Poor appetite or overeating: nearly every day 6. Feeling bad about yourself - or that you are a failure or have let yourself or your family down: nearly every day 7. Trouble concentrating on things, such as reading the newspaper or watching television: not at all 8. Moving or speaking so slowly that other people could have noticed. Or the opposite - being so fidgety or restless that you have been moving around a lot more than usual: not at all 9. Thoughts that you would be better off or of hurting yourself in some way: not at all Total score: 18 Depression Screening Interpretation: Positive Depression Screening Follow-up: Existing condition and In treatment Depression Screening Done: Yes 12720 - PHQ-9 Billing: Yes Source: Developed by Drs. Sacha De La Fuente, No Quintana, Femi Mistry and colleagues, with an educational ghazala from [employer]. Thrive Questionnaire Date Thrive assessed: 11/15/22 I am a: Patient What is your living situation today?: I have a steady place to live Within the past 12 months, did the food you bought not last and you didn't have the money to get more?: Never true Within the past 12 months, did you worry whether your food would run out before you got money to buy more?: Never true Do you have trouble paying for medicines?: No Do you have trouble getting transportation to medical appointments?: No Do you have trouble paying your heating and electricity bill?: No Do you have trouble taking care of your child, family member or friend?: No Do you have trouble with day-to-day activities such as bathing, preparing meals, shopping, managing finances, etc.?: No Are you currently unemployed and looking for a job?: No Are you interested in more education?: No Please select the resources that you would like help with: None Currently or been in a relationship where the following occur: no concerns reported AUDIT C Alcohol Use Questionnaire (AUDIT-C) 1. How often do you have a drink containing alcohol?: 4 or more times a week 2. How many drinks containing alcohol do you have on a typical day when you are drinking?: 1 or 2 3. How often do you have six or more drinks on one occasion?: Never Total Score: 4 Score Reviewed/Action Taken: Yes KEIRA-7 AMB Questionnaire KEIRA-7 Date KEIRA - 7 assessed: 11/15/22 Feeling nervous, anxious, or on edge: 3 = Nearly every day Not being able to stop or control worryin = Nearly every day Worrying too much about different things: 3 = Nearly every day Trouble relaxin = Nearly every day Being so restless that it is hard to sit still: 3 = Nearly every day Becoming easily annoyed or irritable: 3 = Nearly every day Feeling afraid as if something awful might happen: 3 = Nearly every day Total KEIRA-7 score (0-4 normal; 5-9 mild; 10-14 moderate; 15-21 severe): 21 Source: Developed by Drs. Sacha De La Fuenet, No Quintana, Femi Mistry and colleagues, with an educational ghazala from [employer]. Review of Systems Const Denies chills, Reports fatigue, Denies fever(s) and Reports headache(s) (on and off - see HPI) ENT Denies dysphagia, Denies dizziness, Denies otalgia, Reports headache(s) (on and off - see HPI), Denies odynophagia and Denies sore throat Card Denies chest pain, Denies palpitations and Denies dyspnea Resp Denies cough, Denies dyspnea and Denies wheezing GI Denies abdominal pain, Denies constipation, Denies dysphagia, Denies heartburn, Denies diarrhea, Denies nausea, Denies odynophagia and Denies vomiting Denies difficulty voiding, Denies nocturia and Denies dysuria Musc Reports back pain, Reports arthralgias (right knee) and Reports joint swelling (on and off over the right knee) Neuro Denies dizziness and Reports headache(s) (on and off - see HPI) Endo Reports fatigue and Denies palpitations Aller/Immun Denies wheezing Physical exam (Primary Care) Vital Signs: Last Vital Signs Pulse 117 H 11/15/22 17:23 BP 126/82 11/15/22 17:23 Pulse Ox 97 11/15/22 17:23 Oxygen Delivery Method Room Air 11/15/22 17:23 BMI result Body Mass Index 27.6 Tobacco/Smoking Status: Tobacco use Status Tobacco use date assessed 11/15/22 11/15/22 17:28 Patient Tobacco Use Status Current everyday Tobacco 11/15/22 17:28 Tobacco use type Cigarette 11/15/22 17:28 e-Cigarette/Vaping Use Never Used 11/15/22 17:28 PHQ-9: PHQ-9 Score PHQ-9: Total score 18 11/15/22 17:40 Depression Screening Interpretation: Positive Depression Screening Follow-up: Existing condition and In treatment Thrive Assessment: Date of Thrive Assessment Date Thrive assessed 11/15/22 11/15/22 17:28 Currently or been in a relationship where the following occur: no concerns reported Const General: no acute distress and alert HENMT Ears: TM's normal bilaterally and EAC's normal Throat: Yes posterior oropharynx normal and Yes tonsils normal (no TP congestion) Neck Neck: Yes no lymphadenopathy and Yes supple Resp Auscultation: clear to auscultation bilaterally, no rales and no wheezes Cardio Rate: regular rate Rhythm: regular rhythm Heart sounds: no murmurs GI Palpation (GI): Soft to palpation and nontender Auscultation: normal bowel sounds Back/Spine/Pelvis Cervical Spine: Cervical spine tenderness Thoracic/Lumbar Spine: lumbar spinal tenderness Skin Rashes: no rashes Extrem General: Yes no clubbing, cyanosis or edema Right lower extremity: knee Details: tenderness and swelling (mild) Psych Mental Status: mental status grossly normal Speech and movement: Normal speech and movement present Affect: Sad affect present Thought process: Normal thought process present Assessment and Plan Assessment & Plan (1) Headache: Code(s): R51.9 - Headache, unspecified Qualifiers: Headache type: unspecified Headache chronicity pattern: episodic headache Intractability: not intractable Qualified Code(s): R51.9 - Headache, unspecified Plan: Have discussed with patient that her recent headaches appear to be either muscle contraction/tension headaches or some variation of migraine headaches Had a head CT done at the ER a couple of weeks ago that came out normal May continue Ibuprofen PRN for now Will refer her to neurology for further evaluation and management (2) Primary osteoarthritis of right knee: Code(s): M17.11 - Unilateral primary osteoarthritis, right knee Plan: Advised that her right knee x-rays done a few months ago revealed (+) knee effusion as well as OA changes in the knee Continue Ibuprofen PRN for now Patient already has an appointment scheduled to see orthopedics for her right knee issues next week on 11/24/22 and is urged to keep that appointment (3) Allergic reaction due to antibacterial drug: Code(s): T36.95XA - Adverse effect of unspecified systemic antibiotic, initial encounter Plan: She apparently developed an allergic reaction to Nitrofurantoin and this has been included now in her list of allergies Have advised that she does not need to go for allergy testing at this time but if she keeps developing new and recurring allergic reactions to anything over the next few months, then that is something we will need to consider referring her for (4) Insomnia: Code(s): G47.00 - Insomnia, unspecified Qualifiers: Insomnia type: unspecified Qualified Code(s): G47.00 - Insomnia, unspecified Plan: Sleep hygiene reinforced Will try increasing her Trazodone now to 100 mg Q HS PRN Plan Follow up as scheduled next month Orders: Orders Influenza [id number] Immunization Today Z23 - Encounter for immunization Referrals Neurology Referral R51.9 - Headache, unspecified Orthopedics Referral M17.11 - Unilateral primary osteoarthritis, right knee Medications: New flu vacc [id number] 6mos up(PF) 0.5 mL IM ONCE 0.5 mL 0RF Z23 - Encounter for immunization Changed From trazodone 50 mg PO BEDTIME PRN 90 tabs 1RF for insomnia G47.00 - Insomnia, unspecified To trazodone 100 mg PO BEDTIME PRN 30 tabs 2RF for insomnia G47.00 - Insomnia, unspecified Coding Level of Care Code Est Pt Level 4 (20323) Diagnoses Nonintractable episodic headache, unspecified headache type R51.9 Headache type: unspecified Headache chronicity pattern: episodic headache Intractability: not intractable Primary osteoarthritis of right knee M17.11 Allergic reaction due to antibacterial drug T36.95XA Insomnia, unspecified type G47.00 Insomnia type: unspecified
== END 2022-11-15 17:53 | disposition home or self-care (01) ==
PROVIDERS: PCP Internal Medicine; Visit Provider Internal Medicine
DX: R51.9 Headache, unspecified (principal); M17.11 Unilateral primary osteoarthritis, right knee; T36.95XA Adverse effect of unspecified systemic antibiotic, initial encounter; G47.00 Insomnia, unspecified
CPT/HCPCS: 99214

== ENCOUNTER 2022-11-24 21:39 | Emergency (ER) | payer OTHER, SELFPAY ==
--- NOTE | ~2022-11-24 | XR_ITS ---
EXAMINATION: XR CHEST CLINICAL INFORMATION: Shortness of breath COMPARISON: 02/10/2022. TECHNIQUE: 2 views of the chest were obtained. FINDINGS: The cardiomediastinal silhouette is normal. There is no focal lung consolidation or pleural effusion. The bony structures and soft tissues are unremarkable. XR/XR chest 2V IMPRESSION: No active cardiopulmonary disease.
[2022-11-24 21:55] VITALS: BP 129/72; PULSE 105; RESP 20; TEMP 36.7; O2SAT 94; BMI 27.9
[2022-11-24 23:00] LABS: Influenza A PCR NEGATIVE (Negative); Influenza B PCR NEGATIVE (Negative); Resp Syncy Virus RNA Qual PCR NEGATIVE (Negative); SARS COV2 PCR INHOUSE NEGATIVE (Negative)
--- NOTE | 2022-11-24 23:02 | ED.URI ---
HPI - URI/Sore Throat General Chief Complaint: General Medical Stated Complaint: Bodyaches/Nausea Time Seen by Provider: 11/24/22 22:13 Source: patient Mode of arrival: ambulatory Limitations: no limitations History of Present Illness HPI Narrative: 52 yo female with PMH of UTI, arthritis, COPD, GERD, HLD exposed to COVID (granddaughter) she has had body aches, fatigue, nausea, cough and overall not feeling well for 5 days. She is vaccinated x 2. Came for testing. She does not ahve COVID tests at home. She denies dyspnea or chest pain but has wheezed at night. MD elicited complaint: cough, rhinorrhea and other (body aches) Pertinent past history: COPD Onset (ago): day(s) (5) Consistency: constant Severity: moderate Description of mucous: clear Able to tolerate fluids by mouth: Yes Exacerbating factors: nothing Relieving factors: rest Context: sick contacts Associated symptoms: chills, myalgias, headache, rhinorrhea, cough and nausea Treatments prior to arrival: none Related Data Home Medications Medication Instructions Recorded Confirmed ibuprofen 400 mg tablet 400 mg PO Q8H 06/29/22 11/15/22 Previous Rx's Medication Instructions Recorded omeprazole 40 mg capsule,delayed 40 mg PO DAILY #90 caps 10/22/21 release simvastatin 20 mg tablet 20 mg PO BEDTIME #90 tabs 10/22/21 albuterol sulfate 90 mcg/actuation 2 puff inhalation Q6H PRN 01/17/22 aerosol inhaler (Ventolin HFA) shortness of breath or wheezing 30 days #8.5 grams cholecalciferol (vitamin D3) 25 25 mcg PO DAILY #30 tabs 03/28/22 mcg (1,000 unit) tablet epinephrine 0.3 mg/0.3 mL 0.3 mg (0.3 mL) IM Q4H PRN 10/27/22 injection, auto-injector (EpiPen) anaphylaxis #2 ea trazodone 100 mg tablet 100 mg PO BEDTIME PRN for insomnia 11/15/22 #30 tabs COVID-19 antigen test (QuickVue #2 ea 11/24/22 At-Home COVID-19 Test kit) ondansetron 4 mg disintegrating 4 mg PO Q8H PRN nausea and 11/24/22 tablet vomiting #20 tabs prednisone 20 mg tablet 40 mg (2 x 20 mg) PO DAILY 5 days 11/24/22 #10 tabs Allergies Allergy/AdvReac Type Severity Reaction Status Date / Time nitrofurantoin AdvReac Severe Hives Verified 11/24/22 21:58 [From Macrobid] Review of Systems Review of Systems: Constitutional : No Fever, No Chills, pos Fatigue ENT/Mouth : No sore throat, pos Rhinorrhea Eyes: No Eye Pain, No Swelling, No Redness Cardiovascular : No Chest Pain, No SOB, No Dyspnea on Exertion Respiratory : pos Cough, No Sputum Gastrointestinal : pos Nausea, No Vomiting, No Diarrhea, No abdominal Pain Genitourinary : No Dysuria, No Urinary Frequency, No Hematuria, Musculoskeletal : No joint pain, pos Myalgias, No Joint Swelling Skin : No Skin Lesions, No rash Neuro : No Weakness, No Numbness, No Dizziness, positive Headache Psych : No Anxiety/Panic, No Depression All other systems reviewed and are negative PMFSH Past Medical History Source: old records reviewed Medical History Migraine COPD (chronic obstructive pulmonary disease) Thrombocytopenia Overweight (BMI 25.0-29.9) Smoker Arthralgia Left hip pain Abdominal pain Anxiety and depression Degenerative arthritis Cellulitis of right ring finger Ankle pain, left Posttraumatic stress disorder Mild stress incontinence Lumbar radiculopathy DDD (degenerative disc disease), thoracolumbar Degenerative disc disease, cervical Vitamin D deficiency Carpal tunnel syndrome on both sides Fibromyalgia Insomnia Impaired fasting glucose Pure hypercholesterolemia Surgical History History of hip surgery History of tubal ligation Family History Family History Father Diabetes Hypertension Mother Diabetes Hypertension Maternal Grandmother Renal disease Daughter Depression with anxiety Son Depression with anxiety Social History Social History Housing: House Alcohol intake: current Alcohol intake frequency: 0-2 drinks per day Alcohol type: beer Patient Tobacco Use Status: Current everyday Tobacco user Tobacco use type: Cigarette Cigarette Packs Per Day: 0.5 Cigarettes Per Day: 10.0 Years Smoked: 10 e-Cigarette/Vaping Use: Never Used Second Hand Smoke Exposure: Yes Substance Use Type: Marijuana Advance Directives: No Advance Directives Information Provided: Yes Advance Directives Date on File: 12/02/19 service: No Current occupational status: disabled Cognitive needs: No Hearing needs: No Vision needs: Yes Physical Exam Vital Signs: Vital Signs: Last Vital Signs Temp 98.1 F 11/24/22 21:55 Pulse 105 H 11/24/22 21:55 Resp 20 11/24/22 21:55 BP 129/72 11/24/22 21:55 Pulse Ox 94 11/24/22 21:55 O2 Del Method Room Air 11/24/22 21:55 BMI result Body Mass Index 27.9 Appearance: Alert. Oriented X3. No acute distress. Eyes: Pupils equal, round and reactive to light. ENT: Pharynx normal. Neck: Normal inspection. Neck supple. CVS: Normal heart rate and rhythm. Pulses normal. Respiratory: No respiratory distress. Breath sounds normal. Abdomen: Soft and non-tender. Skin: Skin warm and dry. Normal skin color. Normal skin turgor. Extremities: No lower extremity edema. Neuro: Oriented X 3. No motor deficit. No sensory deficit. Medical Decision Making Medical Decision Making [facility] Narrative: 52 yo female with PMH of UTI, arthritis, COPD, GERD, HLD here with c/o viral symptoms after COVID exposure - she is not toxic, not hypoxic c/o cough, runny nose, headaches, body aches - denies travel or tick bites. She will get swab and CXR given COPD will send home with prednisone she reports wheezing at night resopnds to INH. Differential Diagnosis Differential Diagnoses: The differential diagnosis associated with the presentation includes viral infection, COVID, pneumonia, bronchitis Admission/Observation Consideration of admission/observation: Escalation of care including admission/observation considered no hypoxia stable for DC Lab Data [facility] Lab Attestation statement: I reviewed the patient's lab results. Labs: Lab Results 11/24/22 Range/Units 22:20 Influenza Type A (PCR) NEGATIVE (Negative) Influenza Type B (PCR) NEGATIVE (Negative) RSV RNA Qual (PCR) NEGATIVE (Negative) SARS-CoV-2 RNA (RT-PCR) NEGATIVE (Negative) Independent Interpretation I performed an independent interpretation of an: Plain X-Ray (no pneumonia) Radiology Impression Discussion of test interpretation with radiology: I have reviewed the radiologist's reading. Independent Historian Clinical information obtained from an independent historian. History obtained from or confirmed by: Spouse External Record Review External record reviewed: Office record Prescription Management I considered prescription management with: Other (zofran, prednisone, COVID test kits) Discharge Plan Discharge Clinical Impression: Acute viral syndrome Patient Disposition: Home, Self-Care Instructions: Viral Syndrome (ED) Additional Instructions: return for worsening symptoms, difficulty breathing, chest pain, or any other concerns. use your inhaler. continue to test yourself Prescriptions: New prednisone 20 mg tablet 40 mg PO DAILY 5 Days Qty: 10 0RF ondansetron 4 mg tablet,disintegrating 4 mg PO Q8H PRN (Reason: nausea and vomiting) Qty: 20 0RF (DME) QuickVue At-Home COVID-19 Test Kit See Rx Instructions .Route Qty: 2 0RF Rx Instructions: As directed No Action simvastatin 20 mg tablet 20 mg PO BEDTIME Qty: 90 1RF omeprazole 40 mg capsule,delayed release(DR/EC) 40 mg PO DAILY Qty: 90 1RF albuterol sulfate [Ventolin HFA] 90 mcg/actuation HFA aerosol inhaler 2 puff inhalation Q6H PRN (Reason: shortness of breath or wheezing) 30 Days Qty: 8.5 1RF cholecalciferol (vitamin D3) 25 mcg (1,000 unit) tablet 25 mcg PO DAILY Qty: 30 1RF epinephrine [EpiPen] 0.3 mg/0.3 mL auto-injector 0.3 mg IM Q4H PRN (Reason: anaphylaxis) Qty: 2 0RF flu vacc [id number] 6mos up(PF) 60 mcg (15 mcg x 4)/0.5 mL syringe 0.5 ml IM ONCE Qty: 0.5 0RF trazodone 100 mg tablet 100 mg PO BEDTIME PRN (Reason: for insomnia) Qty: 30 2RF ibuprofen 400 mg tablet 400 mg PO Q8H
== END 2022-11-24 23:23 | disposition home or self-care (01) ==
PROVIDERS: Emergency Provider Emergency Medicine; PCP Internal Medicine
DX: B34.9 Viral infection, unspecified (principal); M79.10 Myalgia, unspecified site; R05.9 Cough, unspecified; Z20.822 Contact with and (suspected) exposure to COVID-19; Z20.828 Contact with and (suspected) exposure to other viral communicable diseases; E78.5 Hyperlipidemia, unspecified; J44.9 Chronic obstructive pulmonary disease, unspecified; F17.210 Nicotine dependence, cigarettes, uncomplicated; Z79.899 Other long term (current) drug therapy
CPT/HCPCS: 0241U; 71046; 99282; 99283

== ENCOUNTER 2022-12-14 14:03 | Outpatient (REF) | payer OTHER, SELFPAY | END 2022-12-14 14:04 | disposition home or self-care (01) | LOC: HO.LAB 14:03 | PROVIDERS: PCP Internal Medicine; Visit Provider Obstetrics & Gynecology | DX: N39.0 Urinary tract infection, site not specified (principal) | CPT/HCPCS: 87086 ==

== ENCOUNTER 2022-12-16 10:30 | Outpatient (REF) | payer OTHER, SELFPAY ==
--- NOTE | ~2022-12-16 | CT_ITS ---
EXAMINATION: CT ABDOMEN AND PELVIS WITHOUT AND WITH CONTRAST CLINICAL INFORMATION: Microscopic hematuria COMPARISON: Pelvic ultrasound January 2022 and abdominal ultrasound April 2019 TECHNIQUE: Multidetector volumetric imaging was performed of the abdomen and pelvis before and after the IV administration of 85 mL of Omnipaque 350 intravenous contrast. Sagittal and coronal reformatted images were obtained on the technologist's workstation. This CT examination was performed using dose optimization techniques as appropriate, variously including the following: *Automated exposure control *Adjustment of mA and/or kV according to patient size (this includes techniques or standardized protocols for targeted exams where dose is matched to indication/reason for exam; i.e. extremities or head) *Use of iterative reconstruction technique DLP: 742 mGy-cm FINDINGS: LUNG BASES: The visualized lung bases are unremarkable. LIVER, GALLBLADDER, AND BILIARY TREE: The liver is normal in size, shape, and attenuation. No focal hepatic lesion or biliary ductal dilatation is present. The gallbladder is unremarkable with no evidence of radiopaque gallstones, gallbladder wall thickening, or obvious pericholecystic inflammatory changes. PANCREAS: Unremarkable SPLEEN: Unremarkable ADRENAL GLANDS: Unremarkable KIDNEYS AND URETERS: The kidneys are normal in size, shape, and attenuation. No hydronephrosis, hydroureter, or calculi seen. Normal collecting systems. Normal ureters. Small subcentimeter low-attenuation lesion in the lower pole of the right kidney probably representing. No imaging follow-up recommended. BLADDER: Unremarkable GASTROINTESTINAL TRACT: The small and large bowel are unremarkable. The appendix is unremarkable. ABDOMINAL WALL: Small right inguinal hernia containing fat. LYMPH NODES: Normal VASCULAR: Unremarkable PELVIC VISCERA: Unremarkable OSSEOUS STRUCTURES: Degenerative changes of the spine. CT/CT abdomen pelvis wo/w IV con IMPRESSION: Unremarkable CT IVP. No cause of hematuria seen. Fleischner guidelines were followed.
[2022-12-16] MEDS: iohexoL 350 MG/ML 100 ML INFUS..BTL IV (11:30)
[2022-12-19 13:11] LABS: Creatinine POC 0.8 mg/dL (0.5-1.4); GFR POC > 60
== END 2022-12-16 10:31 | disposition home or self-care (01) ==
LOC: HO.CT 10:30
PROVIDERS: PCP Internal Medicine; Visit Provider Obstetrics & Gynecology
DX: R31.29 Other microscopic hematuria (principal)
CPT/HCPCS: 74178; 82565; Q9967

== ENCOUNTER 2022-12-23 14:49 | Outpatient (AMB) | payer OTHER, SELFPAY ==
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
[2022-12-23 14:53] VITALS: BP 122/78; PULSE 105; O2SAT 97; BMI 27.6
== END 2022-12-23 15:23 | disposition home or self-care (01) ==
PROVIDERS: PCP Internal Medicine; Visit Provider Internal Medicine
DX: R51.9 Headache, unspecified (principal); M17.11 Unilateral primary osteoarthritis, right knee; G47.00 Insomnia, unspecified; E78.00 Pure hypercholesterolemia, unspecified; R73.01 Impaired fasting glucose; M79.7 Fibromyalgia; E55.9 Vitamin D deficiency, unspecified; K21.9 Gastro-esophageal reflux disease without esophagitis; M51.35 Other intervertebral disc degeneration, thoracolumbar region; F41.9 Anxiety disorder, unspecified; F32.9 Major depressive disorder, single episode, unspecified; F17.200 Nicotine dependence, unspecified, uncomplicated
CPT/HCPCS: 99214

== ENCOUNTER 2022-12-29 12:22 | Outpatient (AMB) | payer OTHER, SELFPAY ==
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
== END 2022-12-29 13:20 | disposition home or self-care (01) ==
PROVIDERS: PCP Internal Medicine; Visit Provider Orthopaedic Surgery
DX: M76.31 Iliotibial band syndrome, right leg (principal); M25.461 Effusion, right knee; M79.7 Fibromyalgia; M25.561 Pain in right knee
CPT/HCPCS: 20610; 99214

== ENCOUNTER → 2022-12-29 12:22 | Outpatient (BNVA) | payer OTHER, SELFPAY | PROVIDERS: PCP Internal Medicine; Visit Provider Orthopaedic Surgery | DX: M76.31 Iliotibial band syndrome, right leg (principal); M25.461 Effusion, right knee; M79.7 Fibromyalgia; M25.561 Pain in right knee | CPT/HCPCS: 20610; 99212; J0665; J1100 ==

== ENCOUNTER 2023-01-10 15:36 | Outpatient (AMB) | payer OTHER, SELFPAY ==
[2023-01-10 15:43] VITALS: BP 124/72; BMI 27.6
--- NOTE | 2023-01-10 15:43 | A.OFFVIS_ITS ---
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 CT scan showed the following: IMPRESSION: Unremarkable CT IVP. No cause of hematuria seen. Fleischner guidelines were followed. In addition, the patient is interested in repeating serology STD screen and an to have a refill on Valtrex positive history of herpes episodic outbreaks . [facility] Medical History Migraine COPD (chronic obstructive pulmonary disease) Thrombocytopenia Overweight (BMI 25.0-29.9) Smoker Arthralgia Left hip pain Abdominal pain Anxiety and depression Degenerative arthritis Cellulitis of right ring finger Ankle pain, left Posttraumatic stress disorder Mild stress incontinence Lumbar radiculopathy DDD (degenerative disc disease), thoracolumbar Degenerative disc disease, cervical Vitamin D deficiency Carpal tunnel syndrome on both sides Fibromyalgia Insomnia Impaired fasting glucose Pure hypercholesterolemia Surgical History History of hip surgery History of tubal ligation Family History Father Diabetes Hypertension Mother Diabetes Hypertension Maternal Grandmother Renal disease Daughter Depression with anxiety Son Depression with anxiety Social History Housing: House Alcohol intake: current Alcohol intake frequency: 0-2 drinks per day Alcohol type: beer Comment: UNSTEADY ON FEET PER PATIENT, Patient Tobacco Use Status: Current everyday Tobacco user Tobacco use type: Cigarette Cigarette Packs Per Day: 0.5 Cigarettes Per Day: 10.0 Years Smoked: 10 e-Cigarette/Vaping Use: Never Used Second Hand Smoke Exposure: Yes Substance Use Type: Marijuana Advance Directives Date on File: 12/02/19 service: No Current occupational status: disabled Cognitive needs: No Hearing needs: No Vision needs: Yes Female Reproductive History Menstrual Age of Menarche: 10 control method: permanent sterilization Date of last pap smear: 09/27/22 (negative) History of abnormal pap smear: Yes Date of Mammogram: 07/13/22 Date of last Bone Density Screenin09/08/22 Review of Systems Const All systems reviewed & are unremarkable except as noted in HPI and below Reports as per HPI and Reports no additional complaints GI Reports no additional complaints Reports no additional complaints Physical Exam Vital Signs: Last Vital Signs BP 124/72 01/10/23 15:43 BMI result Body Mass Index 27.6 Assessment & Plan Assessment & Plan (1) Microscopic hematuria: Code(s): R31.29 - Other microscopic hematuria Plan: Discussed with the patient the results of CT scan. The patient was referred to Urology and has an appointment scheduled with in few weeks. All questions answered, the patient verbalized understanding. (2) Herpes: Code(s): B00.9 - Herpesviral infection, unspecified Plan: Valtrex 500 mg p.o. b.i.d. for 3 days with 6 refills sent to the patient's pharmacy. STD screening tests offered BV panel for trichomonas, GC/CT but the patient declined pelvic exam is on interested and serology screen for STD, will send patient for serology std screening for HIV, Hep b s Ag, HepC Ab. RPR will not be ordered since last RPR was done recently was falsely positive . Instructions given the patient to schedule a follow-up appointment for repeat se rology screen in 6 months for possible false negatives. Orders: Orders HIV Ab/Ag Today Z20.2 - Contact with and (suspected) exposure to infections with a predominantly sexual mode of transmission Hepatitis B Surface Antigen Today Z20.2 - Contact with and (suspected) exposure to infections with a predominantly sexual mode of transmission Hepatitis C Antibody Today Z20.2 - Contact with and (suspected) exposure to infections with a predominantly sexual mode of transmission Medications: New valacyclovir (Valtrex) 500 mg PO BID 6 tabs 0RF 3 days Coding Level of Care Code Est Pt Level 3 (64388) Diagnoses Microscopic hematuria R31.29 Herpes B00.9
== END 2023-01-10 16:12 | disposition home or self-care (01) ==
LOC: HO.HWS 15:36
PROVIDERS: PCP Internal Medicine; Visit Provider Obstetrics & Gynecology
DX: R31.29 Other microscopic hematuria (principal); B00.9 Herpesviral infection, unspecified
CPT/HCPCS: 99213

== ENCOUNTER 2023-01-10 15:36 | Outpatient (REF) | payer OTHER, SELFPAY ==
[2023-01-11 08:23] LABS: HIV AB/AG Nonreactive (Nonreactive); HIV Num 1 0.04 S/CO (0.00-0.99); Hepatitis B Surface Antigen Negative (Negative); ~HepC Num1 0.13 S/CO (0.00-0.79); ~Hepatitis C Antibody Nonreactive (Nonreactive)
== END 2023-01-10 15:37 | disposition home or self-care (01) ==
LOC: HO.LAB 15:36
PROVIDERS: PCP Internal Medicine; Visit Provider Obstetrics & Gynecology
DX: Z11.4 Encounter for screening for human immunodeficiency virus [HIV] (principal); R31.29 Other microscopic hematuria; B00.9 Herpesviral infection, unspecified; Z20.2 Contact with and (suspected) exposure to infections with a predominantly sexual mode of transmission
CPT/HCPCS: 36415; 86803; 87340; 87389; 99212

== ENCOUNTER 2023-01-31 09:00 | Outpatient (RCR) | payer OTHER, SELFPAY ==
--- NOTE | 2023-02-27 09:51 | MHC.PT.DC ---
[facility] [place] Office [place] Office [place] Office [address] Shereen Peterson [address] [phone] F: [phone] F: [phone] F: [phone] F: [phone] Physical Therapy Discharge Report Diagnosis: PAIN IN RIGHT KNEE (KP) Date of Surgery: NA Date of Evaluation: 01/27/23 Date of Discharge: 02/27/23 Treatments to Date: 2 Cancellations to Date: 2 No Shows to Date: 2 Discharge Status: Patient Elected to Stop Visit Non-compliance Discharge Summary: Pt ATTENDED EVAL AND ONE VISIT. CX / NO SHOWED FOR ALL OTHER SCHEDULED VISITS AND DC FOR NON-COMPLIANCE Electronically signed by: DANDRE BAUGH PT DPT Please sign and return to therapist. Thank you for your referral.
== END 2023-02-27 09:51 | disposition home or self-care (01) ==
LOC: HO.PT 09:00
PROVIDERS: PCP Internal Medicine; Visit Provider Orthopaedic Surgery
DX: M25.561 Pain in right knee (principal); M76.31 Iliotibial band syndrome, right leg; M25.461 Effusion, right knee
CPT/HCPCS: 97110; 97162

== ENCOUNTER 2023-02-20 08:20 | Emergency (ER) | payer OTHER, SELFPAY ==
[2023-02-20 08:49] VITALS: BP 120/83; PULSE 109; RESP 17; TEMP 36; O2SAT 96; BMI 28.2
--- NOTE | 2023-02-20 09:31 | ED.GENADULT ---
HPI - General Adult General Chief complaint: General Medical Stated complaint: Fever/SOB/Nausea Time Seen by Provider: 02/20/23 09:07 Source: patient, RN notes reviewed and old records reviewed Mode of arrival: ambulatory History of Present Illness HPI narrative: 52-year-old female with a past medical history of osteoarthritis, asthma, GERD, fibromyalgia, HLD, presenting to the ED complaining of fever, chills, myalgias/body aches, dry cough, SOB, nausea, vomiting, dysuria, decreased p.o. intake x 3 days. + sick contacts. Denies chest pain, abdominal pain, hematuria, recent travel, suspicious food intake Onset (ago): day(s) Related Data Home Medications Medication Instructions Recorded Confirmed ibuprofen 400 mg tablet 400 mg PO Q8H 06/29/22 12/23/22 Previous Rx's Medication Instructions Recorded omeprazole 40 mg capsule,delayed 40 mg PO DAILY #90 caps 10/22/21 release simvastatin 20 mg tablet 20 mg PO BEDTIME #90 tabs 10/22/21 albuterol sulfate 90 mcg/actuation 2 puff inhalation Q6H PRN 01/17/22 aerosol inhaler (Ventolin HFA) shortness of breath or wheezing 30 days #8.5 grams epinephrine 0.3 mg/0.3 mL 0.3 mg (0.3 mL) IM Q4H PRN 10/27/22 injection, auto-injector (EpiPen) anaphylaxis #2 ea COVID-19 antigen test (QuickVue #2 ea 11/24/22 At-Home COVID-19 Test kit) ondansetron 4 mg disintegrating 4 mg PO Q8H PRN nausea and 11/24/22 tablet vomiting #20 tabs cholecalciferol (vitamin D3) 25 25 mcg PO DAILY 90 days #90 tabs 12/23/22 mcg (1,000 unit) tablet sertraline 25 mg tablet 25 mg PO DAILY 90 days #90 tabs 12/23/22 valacyclovir 500 mg tablet 500 mg PO BID 3 days #6 tabs 01/12/23 (Valtrex) trazodone 100 mg tablet 100 mg PO BEDTIME PRN for insomnia 02/09/23 #30 tabs cefuroxime axetil 250 mg tablet 250 mg PO BID 7 days #14 tabs 02/20/23 Allergies Allergy/AdvReac Type Severity Reaction Status Date / Time nitrofurantoin AdvReac Severe Hives Verified 01/10/23 15:44 [From Macrobid] Review of Systems Review of Systems: Constitutional: +Fever, + Chills, + fatigue ENT/Mouth: No Ear Pain, + Nasal Congestion, No Sinus Pain, No Hoarseness, + sore throat, + Rhinorrhea, No Swallowing Difficulty Cardiovascular: No Chest Pain, + SOB Respiratory: + Cough, No Sputum, No Wheezing Gastrointestinal: +Nausea, + Vomiting, + Diarrhea, No Constipation, No Abdominal pain Genitourinary: No Dysuria, No Urinary Frequency, No Hematuria, No Urinary Incontinence/retention, +, No Flank Pain Musculoskeletal: No joint pain, +Myalgias, No Joint Swelling Skin: No Skin Lesions, No rash Neuro: No Weakness Yes all other systems are reviewed and are negative Constitutional: Constitutional: Reports as per [facility] Past Medical History Attestation statement: The following information was validated with the patient. Source: old records reviewed Onset Date is defined in the Problem List Problems that require an onset date and time if occurred within 24 hrs of arrival to the ED Aortic Dissection and Rupture; Neurologic impairment; Cardiopulmonary Arrest; Endotracheal Intubation; Insertion or Replacement of Mechanical Circulatory Assist Device Medical History Migraine COPD (chronic obstructive pulmonary disease) Thrombocytopenia Overweight (BMI 25.0-29.9) Smoker Arthralgia Left hip pain Abdominal pain Anxiety and depression Degenerative arthritis Cellulitis of right ring finger Ankle pain, left Posttraumatic stress disorder Mild stress incontinence Lumbar radiculopathy DDD (degenerative disc disease), thoracolumbar Degenerative disc disease, cervical Vitamin D deficiency Carpal tunnel syndrome on both sides Fibromyalgia Insomnia Impaired fasting glucose Pure hypercholesterolemia Surgical History History of hip surgery History of tubal ligation Family History Family History Father Diabetes Hypertension Mother Diabetes Hypertension Maternal Grandmother Renal disease Daughter Depression with anxiety Son Depression with anxiety Social History Social History Housing: House Alcohol intake: current Alcohol intake frequency: 0-2 drinks per day Alcohol type: beer Comment: UNSTEADY ON FEET PER PATIENT, Patient Tobacco Use Status: Current everyday Tobacco user Tobacco use type: Cigarette Cigarette Packs Per Day: 0.5 Cigarettes Per Day: 10.0 Years Smoked: 10 e-Cigarette/Vaping Use: Never Used Second Hand Smoke Exposure: Yes Substance Use Type: Marijuana Advance Directives: No Advance Directives Date on File: 12/02/19 service: No Current occupational status: disabled Cognitive needs: No Hearing needs: No Vision needs: Yes Physical Exam ED Vital Signs: Vital Signs - 24 hr 02/20/23 08:49 Temperature 96.8 F Pulse Rate 109 H Respiratory Rate 17 Blood Pressure 120/83 Pulse Oximetry 96 Oxygen Delivery Method Room Air BMI result Body Mass Index 28.2 Const General: cooperative, healthy appearing and no acute distress Orientation/consciousness: patient oriented x3 Limitations: no limitations HENMT Head: Yes normal to inspection and Yes atraumatic Ears: hearing grossly normal bilaterally General nose exam: Normal external nose present Face and sinus: Yes normal facial exam Mouth: Normal oral and palatal mucosa present Throat: Yes posterior oropharynx normal, Yes tonsils normal, Yes uvula midline, No peritonsillar mass, No uvula laterally displaced and No uvular edema Eyes General: appearance normal, both eyes and all related structures Pupils: Equal, round and reactive pupils present EOM: EOMs intact bilaterally Neck Neck: Yes normal visual inspection and Yes no meningeal signs Resp Effort & Inspection: normal respiratory effort and no respiratory distress Auscultation: clear to auscultation bilaterally, no rhonchi and no wheezes Cardio Rate: regular rate Heart sounds: S1 normal heart sound present and S2 normal heart sound present GI Inspection: Yes normal to inspection Palpation (GI): Soft to palpation, nontender, no guarding and not rigid Skin Rashes: no rashes Wounds: no wounds Neuro General: patient oriented x3, tone normal and no meningeal signs Cranial nerves: Yes CN's II-XII intact bilaterally and Yes Equal, round and reactive pupils present Gait exam (Neuro): Normal gait present Extrem General: Yes normal to inspection Course Course Course Narrative: -1038--mild leukopenia of 4.7. AST mildly elevated to 58. UA infected > patient given dose of p.o. Ceftin in the ED XR chest 2V IMPRESSION: No acute cardiopulmonary disease. -rapid strep negative -1057--influenza a positive. Patient is tolerating p.o. in the ED Results discussed with patient including worrisome signs and symptoms and strict return precautions, and when to return to the emergency department. They verbalized understanding and feel safe for discharge at this time. Medications Administered Discontinued Medications Generic Name Dose Route Start Last Admin Trade Name Jose PRN Reason Stop Dose Admin Acetaminophen 650 mg 02/20/23 09:35 02/20/23 10:15 Acetaminophen 325 Mg Tablet PO 02/20/23 09:36 650 mg ONCE ONE Administration Ondansetron HCl 4 mg 02/20/23 09:35 02/20/23 10:15 Ondansetron Odt 4 Mg Tab.Rapdis TRANSLINGU 02/20/23 09:36 4 mg ONCE ONE Administration Medical Decision Making Medical Decision Making [facility] Narrative: 52-year-old female with a past medical history of osteoarthritis, asthma, GERD, fibromyalgia, HLD, presenting to the ED complaining of fever, chills, myalgias/body aches, dry cough, SOB, nausea, vomiting, dysuria, decreased p.o. intake x 3 days. + sick contacts. On exam mildly tachycardic, NAD/nontoxic appearing, lungs CTA, abdomen soft/nontender. Concern for viral illness vs dehydration/metabolic abnormalities vs bronchitis. Rule out pneumonia. Low suspicion for ACS/PE, appendicitis/diverticulitis or renal stone Plan: Labs, UA, viral testing, CXR Please refer to course for remaining clinical decision making, interpretation of labs/imaging results, and discussions with consultants and/or family members. Differential Diagnosis Differential Diagnoses: The differential diagnosis associated with the presentation includes As above Admission/Observation Consideration of admission/observation: Escalation of care including admission/observation considered Lab Data [facility] Lab Attestation statement: I reviewed the patient's lab results. 02/20/23 09:52 02/20/23 09:52 Labs: Lab Results 02/20/23 02/20/23 Range/Units 09:52 10:19 WBC 4.7 L (4.8-10.8) X10*3/uL RBC 3.92 L (4.20-5.50) X10*6/uL Hgb 12.6 (12.0-16.0) g/dl Hct 37.3 (37.0-47.0) % MCV 95.2 (80.0-98.0) fL MCH 32.1 (27.0-33.0) pg MCHC 33.8 (31.0-35.0) g/dl RDW 13.9 (11.0-16.0) % Plt Count 125 L D (160-400) X10*3/uL MPV 11.7 (9.4-12.3) fL Immature Gran % (Auto) 0.2 (0.0-0.4) % Neut % (Auto) 70.7 (45-73) % Lymph % (Auto) 22.9 (20-40) % [place] % (Auto) 5.8 (2-11) % Eos % (Auto) 0.0 (0-4) % Baso % (Auto) 0.4 (0-2) % Lymph # (Auto) 1.1 L (1.2-4.9) X10*3/uL [place] # (Auto) 0.3 (0.1-1.2) X10*3/uL Eos # (Auto) 0.0 (0.0-0.4) X10*3/uL Baso # (Auto) 0.0 (0.0-0.2) X10*3/uL Abs Immat Gran (auto) 0.01 (0.00-0.03) X10*3/uL Absolute Neuts (auto) 3.3 (2.0-8.3) x10*3/uL Absolute Nucleated RBC 0.000 (0.0-0.012) X10*3/uL Nucleated RBC % (auto) 0.0 (0.0-0.2) /100WBC Sodium 138 (135-145) mmol/L Potassium 3.5 (3.3-5.1) mmol/L Chloride 106 (96-108) mmol/L Carbon Dioxide 22 (22-29) mmol/L Anion Gap 14 (12-20) BUN 9 (9-16) mg/dL Creatinine 0.96 (0.5-1.4) mg/dL Estim Creat Clear Calc 73.6 Estimated GFR > 60 Random Glucose 107 (60-115) mg/dL Calcium 8.8 D (8.4-10.2) mg/dL Magnesium 1.8 (1.6-2.6) mg/dL Total Bilirubin 0.3 (0.0-1.0) mg/dL Direct Bilirubin 0.1 (0.0-0.5) mg/dL AST 58 H (5-31) U/L ALT 29 (0-31) U/L Alkaline Phosphatase 80 (39-117) U/L Total Protein 6.7 (6.5-8.0) g/dL Albumin 4.2 (3.5-5.0) g/dL Urine Color Yellow Urine Appearance Clear Urine pH 6.0 (5.0-9.0) Ur Specific [place] 1.010 (1.005-1.025) Urine Protein Negative (Neg-Trace) mg/dL Urine Glucose (UA) Negative (Negative) mg/dL Urine Ketones Negative (Negative) mg/dL Urine Blood Small (1+) H (Negative) Urine Nitrite Negative (Negative) Ur Leukocyte Esterase Small (1+) H (Negative) Urine RBC 3-5 H (0-2) /HPF Urine WBC 11-20 H (0-5) /HPF Ur Squamous Epith Cells 3-5 (0-2) /HPF Urine Bacteria None Seen (None Seen) Hyaline Casts 0-2 (0-2) /LPF Influenza Type A (PCR) POSITIVE A (Negative) Influenza Type B (PCR) NEGATIVE (Negative) RSV RNA Qual (PCR) NEGATIVE (Negative) SARS-CoV-2 RNA (RT-PCR) NEGATIVE (Negative) S. pyogenes GrpA LIANE Negative (Negative) Independent Interpretation I performed an independent interpretation of an: Plain X-Ray (My interpretation, unremarkable) Radiology Impression Discussion of test interpretation with radiology: I have reviewed the radiologist's reading. External Record Review External record reviewed: Inpatient record, Office record, Outpatient record, Prior outpatient labs, Prior outpatient radiology, Primary care record and Outside ED record Tests considered The following testing was considered but not selected: As above Prescription Management I considered prescription management with: Pain Medication Chronic Conditions Patient?s care impacted by: Other Discharge Plan Discharge Clinical Impression: UTI (urinary tract infection) Patient Disposition: Home, Self-Care Instructions: Urinary Tract Infection in Women (DC) Additional Instructions: You have a UTI. Ceftin is an antibiotic please take as prescribed Your blood work is reassuring Make sure your staying hydrated Drink plenty of fluids Follow-up with her doctor If symptoms persist or worsen return to the emergency department Prescriptions: New cefuroxime axetil 250 mg tablet 250 mg PO BID 7 Days Qty: 14 0RF No Action simvastatin 20 mg tablet 20 mg PO BEDTIME Qty: 90 1RF omeprazole 40 mg capsule,delayed release(DR/EC) 40 mg PO DAILY Qty: 90 1RF albuterol sulfate [Ventolin HFA] 90 mcg/actuation HFA aerosol inhaler 2 puff inhalation Q6H PRN (Reason: shortness of breath or wheezing) 30 Days Qty: 8.5 1RF valacyclovir [Valtrex] 500 mg tablet 500 mg PO BID 3 Days Qty: 6 6RF trazodone 100 mg tablet 100 mg PO BEDTIME PRN (Reason: for insomnia) Qty: 30 2RF ondansetron 4 mg tablet,disintegrating 4 mg PO Q8H PRN (Reason: nausea and vomiting) Qty: 20 0RF (DME) QuickVue At-Home COVID-19 Test Kit See Rx Instructions .Route Qty: 2 0RF Rx Instructions: As directed epinephrine [EpiPen] 0.3 mg/0.3 mL auto-injector 0.3 mg IM Q4H PRN (Reason: anaphylaxis) Qty: 2 0RF flu vacc [id number] 6mos up(PF) 60 mcg (15 mcg x 4)/0.5 mL syringe 0.5 ml IM ONCE Qty: 0.5 0RF sertraline 25 mg tablet 25 mg PO DAILY 90 Days Qty: 90 1RF cholecalciferol (vitamin D3) 25 mcg (1,000 unit) tablet 25 mcg PO DAILY 90 Days Qty: 90 3RF ibuprofen 400 mg tablet 400 mg PO Q8H Referrals: Andreas Christensen MD [Primary Care Provider] - 1 week Stand Alone Forms: Work/School Release
[2023-02-20 10:15] LABS: Anion Gap 14 (12-20); Blood Urea Nitrogen 9 mg/dL (9-16); Calcium 8.8 mg/dL (8.4-10.2); Carbon Dioxide 22 mmol/L (22-29); Chloride 106 mmol/L (96-108); Creatinine Clr Calc Pharmacy 73.6; Estimated Glomerular Filt Rate > 60; Glucose Random 107 mg/dL (60-115); Potassium 3.5 mmol/L (3.3-5.1); Sodium 138 mmol/L (135-145)
[2023-02-20 10:27] LABS: Appearance Urine Clear; Color Urine Yellow; Glucose Urine UA Negative (Negative); Leukocyte Esterase Urine Small (1+) (Negative); Nitrite Urine Negative (Negative); UMIC TRIGGER UACC YES; Urine Blood Small (1+) (Negative); Urine Ketones Negative (Negative); Urine Protein Negative (Neg-Trace)
[2023-02-20 10:37] LABS: Bacteria Urine None Seen (None Seen); Hyaline Casts Urine 0-2 /LPF (0-2); UACC Culture Trigger YES
== END 2023-02-20 11:15 | disposition home or self-care (01) ==
PROVIDERS: Emergency Provider Emergency Medicine; PCP Internal Medicine
DX: N39.0 Urinary tract infection, site not specified (principal); R50.9 Fever, unspecified; R06.02 Shortness of breath; R11.2 Nausea with vomiting, unspecified; R05.9 Cough, unspecified; F17.210 Nicotine dependence, cigarettes, uncomplicated; Z71.6 Tobacco abuse counseling; Z79.899 Other long term (current) drug therapy; Z20.822 Contact with and (suspected) exposure to COVID-19; Z20.828 Contact with and (suspected) exposure to other viral communicable diseases
CPT/HCPCS: 0241U; 36415; 71046; 80048; 80076; 81001; 83735; 85025; 87086; 87088; 87186; 87651; 99283

== ENCOUNTER 2023-02-23 13:09 | Outpatient (AMB) | payer OTHER, SELFPAY ==
--- NOTE | 2023-02-23 13:15 | A.OFFVIS_ITS ---
Intake Intake Visit Reasons: microhematuria Intake Note: NEW Patient presents today to established treatment for Microhematuria: Meds- UTI (Cefuroxime) Allergies to Antibiotic- Nitrofurantoin Blood Thinner- None Assistant Cook Required: No Accompanied by: Self / Same As Patient Allergies nitrofurantoin [From Macrobid] Adverse Reaction (Severe, Verified 02/23/23 13:34) Hives Medication List - Last Reconciled 02/23/23 by Mirza Arevalo MD albuterol sulfate 90 mcg/actuation (Ventolin HFA) 2 puffs inhalation Q6H PRN 30 days cefuroxime axetil 250 mg PO BID 7 days cholecalciferol (vitamin D3) 25 mcg PO DAILY 90 days COVID-19 antigen test (QuickVue At-Home COVID-19 Test kit) As directed epinephrine (EpiPen) 0.3 mg (0.3 mL) IM Q4H PRN estradiol (Vagifem) 10 mcg vaginal 2XW fluticasone propionate 50 mcg/actuation 2 sprays intranasal DAILY PRN 30 days ibuprofen 400 mg PO Q8H omeprazole 40 mg PO DAILY ondansetron 4 mg PO Q8H PRN sertraline 25 mg PO DAILY 90 days simvastatin 20 mg PO BEDTIME trazodone 100 mg PO BEDTIME PRN valacyclovir (Valtrex) 500 mg PO BID 3 days HPI HPI Comments History of Present Illness Details Nisreen is a 52 year old female who is here for evaluation for hematuria Comorbidity - Nicotine Dependence The patient c/os of recurrent UTI's, she states she had significant urinary burning and went to the ED on 02/20/23 and was started on Abx. I have reviewed chart, imaging CT scan 12/16/22 -- urinary tract WNL, urine cult ure 02/20/23 - Ecoli, pansensitive Will start Vagifem. I have discussed workup to include cystoscopy evaluation. Plan: As above. FORMERLY [facility], [facility] Medical History Migraine COPD (chronic obstructive pulmonary disease) Thrombocytopenia Overweight (BMI 25.0-29.9) Smoker Arthralgia Left hip pain Abdominal pain Anxiety and depression Degenerative arthritis Cellulitis of right ring finger Ankle pain, left Posttraumatic stress disorder Mild stress incontinence Lumbar radiculopathy DDD (degenerative disc disease), thoracolumbar Degenerative disc disease, cervical Vitamin D deficiency Carpal tunnel syndrome on both sides Fibromyalgia Insomnia Impaired fasting glucose Pure hypercholesterolemia Surgical History History of hip surgery History of tubal ligation Family History Father Diabetes Hypertension Mother Diabetes Hypertension Maternal Grandmother Renal disease Daughter Depression with anxiety Son Depression with anxiety Social History Housing: House Alcohol intake: current Alcohol intake frequency: 0-2 drinks per day Alcohol type: beer Comment: UNSTEADY ON FEET PER PATIENT, Patient Tobacco Use Status: Current everyday Tobacco user Tobacco use type: Cigarette Cigarette Packs Per Day: 0.5 Cigarettes Per Day: 10.0 Years Smoked: 10 e-Cigarette/Vaping Use: Never Used Second Hand Smoke Exposure: Yes Substance Use Type: Marijuana Advance Directives Date on File: 12/02/19 service: No Current occupational status: disabled Cognitive needs: No Hearing needs: No Vision needs: Yes Female Reproductive History Menstrual Age of Menarche: 10 Physical Exam Const General: cooperative, healthy appearing and no acute distress Orientation/consciousness: patient oriented x3 HEENT Head: Yes normal to inspection, Yes normocephalic and Yes atraumatic Eyes Conjunctivae: conjunctivae normal Neck Neck: Yes normal visual inspection and Yes trachea midline Chest Chest palpation & inspection: normal inspection of the chest Resp Effort & Inspection: normal respiratory effort Cardio Rate: regular rate GI Inspection: Yes normal to inspection Skin General skin exam: no rashes or lesions noted Neuro General: patient oriented x3 Extrem General: No edema Psych Appearance: grossly normal Results AMB Urinalysis, Automated UA Leukoctes 0 Dipesh/uL Last Edit by ANDREEA Kohler on 02/23/23 13:36 UA Nitrite Negative Last Edit by ANDREEA Kohler on 02/23/23 13:36 UA Urobilinogen 0.2 mg/dL Last Edit by Yenni Gray Gutierrez on 02/23/23 13:3 6 UA Protein 30 mg/dL Last Edit by Yenni Gray Gutierrez on 02/23/23 13:36 1+ Yenni Gray 02/23/23 13:36 UA pH 6.0 Last Edit by Yenni Gray Gutierrez on 02/23/23 13:36 UA Blood 10 Alfred/uL Last Edit by Yenni Gray [facility] on 02/23/23 13:36 UA Specific [place] 1.030 Last Edit by Yenni Gray Gutierrez on 02/23/23 13: 36 UA Ketone Negative Last Edit by Yenni Gray Gutierrez on 02/23/23 13:36 UA Bilirubin 0 mg/dL Last Edit by Yenni Gray Gutierrez on 02/23/23 13:36 UA Glucose 0 mg/dL Last Edit by Yenni Gray Gutierrez on 02/23/23 13:36 Results Reviewed Results Reviewed: Laboratory Last Values Urine pH (Auto) 6.0 02/23/23 13:35 Specific [place] (Auto) 1.030 02/23/23 13:35 Urine Protein (Auto) 30 mg/dL 02/23/23 13:35 Glucose (UA)(Auto) 0 mg/dL 02/23/23 13:35 Urine Ketones (Auto) Negative 02/23/23 13:35 Urine Blood (Auto) 10 Alfred/uL 02/23/23 13:35 Urine Nitrite (Auto) Negative 02/23/23 13:35 Urine Bilirubin (Auto) 0 mg/dL 02/23/23 13:35 Urine Urobilinogen (Auto) 0.2 mg/dL 02/23/23 13:35 Leukocyte Esterase (Auto) 0 Dipesh/uL 02/23/23 13:35 Collected: 02/20/23-UNK Status: COMP Req#: [id number] Received: 02/20/23-1047 Source: [facility] Sp Desc: Urine vela Subm Dr: Silverio Godoy MD Ordered: Urine Culture Procedure Result Verified Site Urine Culture Final 02/22/23 Organism 1 Escherichia coli Quant 10,000 to 50,000 cfu/mL E coli M.I.C. RX --------- --- Ampicillin 4 S Ceftriaxone <=0.25 S Gentamicin <=1 S Levofloxacin <=0.12 S Nitrofurantoin <=16 S Trimethoprim/Sulfamethoxazole <=20 S Date of Service: 12/16/22 EXAMINATION: CT ABDOMEN AND PELVIS WITHOUT AND WITH CONTRAST CLINICAL INFORMATION: Microscopic hematuria COMPARISON: Pelvic ultrasound January 2022 and abdominal ultrasound April 2019 TECHNIQUE: Multidetector volumetric imaging was performed of the abdomen and pelvis before and after the IV administration of 85 mL of Omnipaque 350 intravenous contrast. Sagittal and coronal reformatted images were obtained on the technologist's workstation. This CT examination was performed using dose optimization techniques as appropriate, variously including the following: *Automated exposure control *Adjustment of mA and/or kV according to patient size (this includes techniques or standardized protocols for targeted exams where dose is matched to indication/reason for exam; i.e. extremities or head) *Use of iterative reconstruction technique DLP: 742 mGy-cm FINDINGS: LUNG BASES: The visualized lung bases are unremarkable. LIVER, GALLBLADDER, AND BILIARY TREE: The liver is normal in size, shape, and attenuation. No focal hepatic lesion or biliary ductal dilatation is present. The gallbladder is unremarkable with no evidence of radiopaque gallstones, gallbladder wall thickening, or obvious pericholecystic inflammatory changes. PANCREAS: Unremarkable SPLEEN: Unremarkable ADRENAL GLANDS: Unremarkable KIDNEYS AND URETERS: The kidneys are normal in size, shape, and attenuation. No hydronephrosis, hydroureter, or calculi seen. Normal collecting systems. Normal ureters. Small subcentimeter low-attenuation lesion in the lower pole of the right kidney probably representing. No imaging follow-up recommended. BLADDER: Unremarkable GASTROINTESTINAL TRACT: The small and large bowel are unremarkable. The appendix is unremarkable. ABDOMINAL WALL: Small right inguinal hernia containing fat. LYMPH NODES: Normal VASCULAR: Unremarkable PELVIC VISCERA: Unremarkable OSSEOUS STRUCTURES: Degenerative changes of the spine. CT/CT abdomen pelvis wo/w IV con IMPRESSION: Unremarkable CT IVP. No cause of hematuria seen. Assessment & Plan Assessment & Plan (1) Microscopic hematuria: Code(s): R31.29 - Other microscopic hematuria (2) Recurrent urinary tract infection: Code(s): N39.0 - Urinary tract infection, site not specified (3) Post-menopausal atrophic vaginitis: Code(s): N95.2 - Postmenopausal atrophic vaginitis (4) Nicotine dependence: Code(s): F17.200 - Nicotine dependence, unspecified, uncomplicated Plan Will start Vagifem. I have discussed workup to include cystoscopy evaluation. Orders: Orders AMB Urinalysis Automated Today Z13.9 - Encounter for screening, unspecified Medications: New estradiol (Vagifem) place vaginally at bedtime Mon/Thurs 10 mcg vaginal 2XW 8 tabs 5RF Patient Instructions: The patient had an opportunity to ask questions regarding treatment plan. All questions were answered. Imaging, Laboratory studies and physical exam results were discussed and reviewed in detail. No major barriers to understanding were identified. The patient expressed understanding and agreement with the above treatment plan. The patient is aware they should contact our office by phone for worsening of their current condition or the appearance of new symptoms. Compliance is encouraged with any medications and followup testing that is ordered. It is a privilege to be allowed the opportunity to participate in the urologic care of your patient. If you have any questions or concerns regarding treatment for the above conditions please do not hesitate to contact me. The office telephone contact is [phone]. This note is constructed in part using voice recognition software. While every effort has been made to ensure accuracy internet marketing intern errors may have been included. Yours sincerely, Mirza Arevalo MD Coding Level of Care Code New Pt Level 4 (86286) Diagnoses Microscopic hematuria R31.29 Recurrent urinary tract infection N39.0 Post-menopausal atrophic vaginitis N95.2 Nicotine dependence F17.200
== END 2023-02-23 13:48 | disposition home or self-care (01) ==
PROVIDERS: PCP Internal Medicine; Visit Provider Urology
DX: R31.29 Other microscopic hematuria (principal); N39.0 Urinary tract infection, site not specified; N95.2 Postmenopausal atrophic vaginitis; F17.200 Nicotine dependence, unspecified, uncomplicated; Z13.9 Encounter for screening, unspecified
CPT/HCPCS: 99204

== ENCOUNTER → 2023-02-23 13:09 | Outpatient (BNVA) | payer OTHER, SELFPAY | PROVIDERS: PCP Internal Medicine; Visit Provider Urology | DX: R31.29 Other microscopic hematuria (principal); N39.0 Urinary tract infection, site not specified; N95.2 Postmenopausal atrophic vaginitis; F17.210 Nicotine dependence, cigarettes, uncomplicated | CPT/HCPCS: 81003; 99202 ==

== ENCOUNTER 2023-03-04 23:34 | Emergency (ER) | payer OTHER, SELFPAY ==
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
[2023-03-04 23:44] VITALS: BP 113/73; PULSE 106; RESP 20; TEMP 36.7; O2SAT 96
[2023-03-04 23:49] VITALS: BP 135/104; PULSE 116; O2SAT 99
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
[2023-03-05] VITALS: BMI 28.9
[2023-03-05] MEDS: Ibuprofen 600 MG TABLET PO (01:04)
[2023-03-05 02:33] VITALS: BP 103/58; PULSE 101; RESP 18; TEMP 36.8; O2SAT 97
== END 2023-03-05 03:13 | disposition home or self-care (01) ==
PROVIDERS: Emergency Provider Emergency Medicine
DX: S13.4XXA Sprain of ligaments of cervical spine, initial encounter (principal); S80.212A Abrasion, left knee, initial encounter; S80.02XA Contusion of left knee, initial encounter; R07.89 Other chest pain; R42 Dizziness and giddiness; F17.210 Nicotine dependence, cigarettes, uncomplicated; V43.52XA Car driver injured in collision with other type car in traffic accident, initial encounter; Y93.9 Activity, unspecified; Y92.410 Unspecified street and highway as the place of occurrence of the external cause; Y99.8 Other external cause status
CPT/HCPCS: 70450; 71045; 72125; 73560; 99284

== ENCOUNTER 2023-03-15 13:02 | Outpatient (AMB) | payer OTHER, SELFPAY ==
[2023-03-15 13:04] VITALS: BP 110/72; PULSE 90; O2SAT 97; BMI 28.7
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
== END 2023-03-15 13:46 | disposition home or self-care (01) ==
PROVIDERS: Visit Provider Internal Medicine
DX: S80.02XA Contusion of left knee, initial encounter (principal); V89.2XXS Person injured in unspecified motor-vehicle accident, traffic, sequela; F41.9 Anxiety disorder, unspecified; F32.9 Major depressive disorder, single episode, unspecified; F17.200 Nicotine dependence, unspecified, uncomplicated
CPT/HCPCS: 99499

== ENCOUNTER 2023-03-28 14:53 | Outpatient (AMB) | payer OTHER, SELFPAY ==
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
== END 2023-03-28 16:05 | disposition home or self-care (01) ==
LOC: HO.HMGH 14:53
PROVIDERS: PCP Internal Medicine; Visit Provider Internal Medicine
DX: M25.561 Pain in right knee (principal); M25.562 Pain in left knee; G47.00 Insomnia, unspecified; F17.210 Nicotine dependence, cigarettes, uncomplicated
CPT/HCPCS: 99442

== ENCOUNTER 2023-07-04 14:48 | Outpatient (AMB) | payer OTHER, SELFPAY ==
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
[2023-07-04 14:53] VITALS: BP 118/86; PULSE 87; O2SAT 98; BMI 28.2
== END 2023-07-04 15:19 | disposition home or self-care (01) ==
PROVIDERS: PCP Internal Medicine; Visit Provider Internal Medicine
DX: G89.29 Other chronic pain (principal); M25.562 Pain in left knee; V89.2XXD Person injured in unspecified motor-vehicle accident, traffic, subsequent encounter; Z04.3 Encounter for examination and observation following other accident
CPT/HCPCS: 99213

== ENCOUNTER → 2023-07-19 12:30 | Outpatient (BNV) | payer OTHER, SELFPAY | PROVIDERS: PCP Internal Medicine; Visit Provider Radiology Diagnostic Radiology | DX: Z12.31 Encounter for screening mammogram for malignant neoplasm of breast (principal) | CPT/HCPCS: 77063; 77067 ==

== ENCOUNTER 2023-07-19 12:37 | Outpatient (REF) | payer OTHER, SELFPAY ==
--- NOTE | ~2023-07-19 | MM_ITS ---
EXAMINATION: MM SCREENING DIGITAL BREAST TOMOSYNTHESIS, BILATERAL CLINICAL INFORMATION: Screening. Asymptomatic. COMPARISON: Mammography: This study is compared with prior exams dating back to 2019. TECHNIQUE: Digital breast tomosynthesis is performed in both the craniocaudal and mediolateral oblique views along with computer-aided detection (CAD). Synthesized 2D images are generated from the tomosynthesis. FINDINGS: There are scattered areas of fibroglandular density (ACR BI-RADS breast composition Category b). There is a focal asymmetry in the upper outer quadrant of the right breast at a middle depth. Additional mammographic and targeted sonographic imaging of this finding is advised. In the left breast, no are no significant masses, abnormal calcifications, or other abnormalities. MM/MM tomosynthesis screening BI IMPRESSION: Focal asymmetry of the right breast warrants additional mammographic and targeted sonographic imaging. No mammographic signs of malignancy right breast. ASSESSMENT: BI-RADS BI-RADS 0 - Incomplete: Needs additional Imaging. RECOMMENDATION: 1. Additional views of the right breast. 2. Targeted ultrasound if warranted after review of the additional views. 3. Radiology department staff will contact the patient for additional imaging. Additional Imaging required This examination should not preclude the clinical evaluation of a suspicious palpable abnormality. This patient's information was entered into a reminder system with a target due date for their next mammogram.
== END 2023-07-19 12:38 | disposition home or self-care (01) ==
LOC: HO.MAMMO 12:37
PROVIDERS: PCP Internal Medicine; Visit Provider Internal Medicine
DX: Z12.31 Encounter for screening mammogram for malignant neoplasm of breast (principal)
CPT/HCPCS: 77063; 77067

== ENCOUNTER 2023-09-07 08:37 | Outpatient (REF) | payer OTHER, SELFPAY ==
--- NOTE | ~2023-09-07 | MR_ITS ---
EXAMINATION: MR KNEE WITHOUT CONTRAST, LEFT CLINICAL INFORMATION: Left knee pain. COMPARISON: Radiographs 03/05/2023 TECHNIQUE: MRI of the knee without contrast was performed using routine sequences on a high-field scanner. FINDINGS: MENISCI: Medial Meniscus: Minimal undersurface fraying along the inner margin of the junction of the body and posterior horn and at the root of the posterior horn. Lateral Meniscus: Ill-defined tearing along the superior articular surface of the meniscal body and the undersurface at the junction with the posterior horn. LIGAMENTS: Cruciate: Mild mucoid degeneration of the ACL. There is a ganglion or lobulated recess at the proximal aspect of the intercondylar notch. Collateral: Intact EXTENSOR MECHANISM: Intact ARTICULAR CARTILAGE/BONE: Patellofemoral Compartment: Normal. Medial Compartment: Peripheral cartilage thinning and small marginal osteophytes. Lateral Compartment: Cartilage thinning with areas of surface irregularity throughout the tibia and small marginal osteophytes. There is focal partial-thickness cartilage loss and subchondral edema of the posterior nonweight-bearing femoral condyle. JOINT FLUID AND BURSAE: Trace joint effusion. There is a small, lobulated Barnhart's cyst which extends distally along the semimembranosus tendon and deep to the pes anserinus and distal MCL. MR/MR knee LT wo con IMPRESSION: 1. Ill-defined tearing along the superior articular surface of the lateral meniscus body and undersurface at the junction with the posterior horn. 2. Minimal undersurface fraying along the inner margin of the medial meniscus at the junction of the body and posterior horn and at the root of the posterior horn. 3. Mild mucoid degeneration of the ACL. 4. Mild medial and lateral compartment osteoarthritis with a trace joint effusion and a small Barnhart's cyst.
== END 2023-09-07 08:38 | disposition home or self-care (01) ==
LOC: HO.MRI 08:37
PROVIDERS: PCP Internal Medicine; Visit Provider Internal Medicine
DX: M25.562 Pain in left knee (principal); G89.29 Other chronic pain
CPT/HCPCS: 73721

== ENCOUNTER 2023-10-05 08:36 | Outpatient (AMB) | payer OTHER, SELFPAY ==
--- NOTE | 2023-10-05 08:37 | A.OFFPC_ITS ---
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: Yes Accompanied by: Daughter Allergies nitrofurantoin [From Macrobid] Adverse Reaction (Severe, Verified 10/05/23 08:43) Hives Medication List - Last Reconciled 10/05/23 by Gayatri Peralta PA-C acetaminophen-codeine 300-15 mg 1 tab PO BEDTIME PRN albuterol sulfate 90 mcg/actuation (Ventolin HFA) 2 puffs inhalation Q6H PRN 30 days cholecalciferol (vitamin D3) 25 mcg PO DAILY 90 days COVID-19 antigen test ([employer] At-Home COVID-19 Test kit) As directed epinephrine (EpiPen) 0.3 mg (0.3 mL) IM Q4H PRN estradiol (Vagifem) 10 mcg vaginal 2XW fluticasone propionate 50 mcg/actuation 2 sprays intranasal DAILY PRN 30 days hydroxyzine HCl 25 mg PO TID PRN 30 days ibuprofen 400 mg PO Q8H 30 days omeprazole 40 mg PO DAILY ondansetron 4 mg PO Q8H PRN sertraline 50 mg PO DAILY 90 days Shower Chair As directed simvastatin 20 mg PO BEDTIME trazodone 100 mg PO BEDTIME PRN Tobacco use date assessed: 03/28/23 Dental Screening Dental Screen Date: 03/28/23 HPI Possible Alzheimers HPI Details 53-year-old female with past medical his tory of hypercholesterolemia, impaired glucose tolerance, PTSD, COPD, and depression last seen by Dr. Christensen june 2023 coming in for acute problem. Patient presents today with her daughter. They both report the patient has been more confused over the last 3 weeks and has also had a new right-sided facial weakness which has been developing over the last 3 weeks as well. The patient describes her confusion as difficulty word finding and putting thoughts together as well as being more forgetful. Her daughter reports she is having a hard time cooking for herself and remembering recipes that she has made for several years. Patient states she has been very frustrated as she often forgets simple things and can not collect her thoughts. She has been previously evaluated by Neurology for headaches and has not followed up. [facility] Medical History Migraine COPD (chronic obstructive pulmonary disease) Thrombocytopenia Overweight (BMI 25.0-29.9) Smoker Arthralgia Left hip pain Abdominal pain Anxiety and depression Degenerative arthritis Cellulitis of right ring finger Ankle pain, left Posttraumatic stress disorder Mild stress incontinence Lumbar radiculopathy DDD (degenerative disc disease), thoracolumbar Degenerative disc disease, cervical Vitamin D deficiency Carpal tunnel syndrome on both sides Fibromyalgia Insomnia Impaired fasting glucose Pure hypercholesterolemia Surgical History History of hip surgery History of tubal ligation Family History Father Diabetes Hypertension Mother Diabetes Hypertension Maternal Grandmother Renal disease Daughter Depression with anxiety Son Depression with anxiety Social History Housing: House Alcohol intake: current Alcohol intake frequency: holidays/special occasions only Alcohol type: beer Comment: UNSTEADY ON FEET PER PATIENT, Patient Tobacco Use Status: Current everyday Tobacco user Tobacco use type: Cigarette Cigarette Packs Per Day: 0.5 Cigarettes Per Day: 10.0 Years Smoked: 10 e-Cigarette/Vaping Use: Never Used Second Hand Smoke Exposure: Yes Substance Use Type: Marijuana Advance Directives Date on File: 12/02/19 service: No Current occupational status: disabled Current occupational exposures/hazards: No Cognitive needs: No Hearing needs: No Vision needs: Yes Female Reproductive History Menstrual Age of Menarche: 10 Questionnaire PHQ-9 Over the last 2 weeks, how often have you been bothered by any of the following problems? 1. Little interest or pleasure in doing things: nearly every day 2. Feeling down, depressed, or hopeless: nearly every day 3. Trouble falling or staying asleep, or sleeping too much: nearly every day 4. Feeling tired or having little energy: nearly every day 5. Poor appetite or overeating: nearly every day 6. Feeling bad about yourself - or that you are a failure or have let yourself or your family down: nearly every day 7. Trouble concentrating on things, such as reading the newspaper or watching television: not at all 8. Moving or speaking so slowly that other people could have noticed. Or the opposite - being so fidgety or restless that you have been moving around a lot more than usual: not at all 9. Thoughts that you would be better off or of hurting yourself in some way: not at all Total score: 18 Depression Screening Interpretation: Positive Depression Screening Follow-up: Existing condition and In treatment Depression Screening Done: Yes 23488 - PHQ-9 Billing: Yes Source: Developed by Drs. Sacha De La Fuente, Femi Helms and colleagues, with an educational ghazala from [employer]. Thrive Questionnaire Date Thrive assessed: 03/28/23 AUDIT C Alcohol Use Questionnaire (AUDIT-C) 1. How often do you have a drink containing alcohol?: 4 or more times a week 2. How many drinks containing alcohol do you have on a typical day when you are drinking?: 1 or 2 3. How often do you have six or more drinks on one occasion?: Never Total Score: 4 Score Reviewed/Action Taken: Yes KEIRA-7 AMB Questionnaire KEIRA-7 Date KEIRA - 7 assessed: 03/28/23 Source: Developed by Drs. Sacha De La Fuente, No Quintana, Femi Mistry and colleagues, with an educational ghazala from [employer]. Review of Systems Const Denies body aches, Denies chills, Denies fever(s), Reports headache(s), Denies poor appetite and Reports weakness Eyes Reports no additional complaints ENT Reports Normal hearing present, Denies dysphagia, Denies dizziness and Reports headache(s) Card Denies chest pain, Denies syncope, Denies lightheadedness and Denies dyspnea Resp Denies dyspnea GI Denies dysphagia Reports no additional complaints Musc Reports as per HPI Skin/Breast Reports system reviewed and no additional complaints, except as documented Neuro Reports Normal hearing present, Reports Abnormal speech present, Reports confusion, Denies dizziness, Denies syncope, Reports headache(s), Reports memory loss and Reports weakness Psych Reports no additional complaints, Reports confusion and Reports memory loss Physical exam (Primary Care) Vital Signs: Last Vital Signs Pulse 96 10/05/23 08:38 BP 118/80 10/05/23 08:38 Pulse Ox 95 10/05/23 08:38 Oxygen Delivery Method Room Air 10/05/23 08:38 BMI result Body Mass Index 26.2 Tobacco/Smoking Status: Tobacco use Status Tobacco use date assessed 03/28/23 10/05/23 08:38 Patient Tobacco Use Status Current everyday Tobacco 10/05/23 08:38 Tobacco use type Cigarette 10/05/23 08:38 e-Cigarette/Vaping Use Never Used 10/05/23 08:38 PHQ-9: PHQ-9 Score PHQ-9: Total score 18 10/05/23 08:48 Depression Screening Interpretation: Positive Depression Screening Follow-up: Existing condition and In treatment Thrive Assessment: Date of Thrive Assessment Date Thrive assessed 03/28/23 10/05/23 08:38 Const General: confusion Orientation/consciousness: oriented to person, oriented to place and confusion HENMT Head: Yes normocephalic Ears: hearing grossly normal bilaterally General nose exam: Normal external nose present Eyes General: appearance normal, both eyes and all related structures Conjunctivae: conjunctivae normal Pupils: Equal, round and reactive pupils present EOM: No Nystagmus present Neck Neck: Yes full ROM and Yes no lymphadenopathy Resp Effort & Inspection: normal respiratory effort Auscultation: clear to auscultation bilaterally, no crackles, no rales, no rhonchi and no wheezes Cardio Rate: regular rate Rhythm: regular rhythm Skin General skin exam: no rashes or lesions noted Neuro General: oriented to person, oriented to place, gait normal, moves all ext remities and confusion Cranial nerves: Yes Equal, round and reactive pupils present, Yes Bilaterally intact EOM present, No Normal facial strength present (Right-sided weakness), Yes Midline tongue present, Yes Normal hearing present, Yes Ability to bilaterally rotate head present, Yes Ability to bilaterally elevate shoulders present, No Nystagmus present and Yes Other cranial nerve findings present (Equal strength with smiling) Cognition (Neuro): abnormal cognition Speech: Abnormal speech present Details: expressive aphasia Gait exam (Neuro): Normal gait present Motor exam (neuro): 5/5 motor strength present throughout Extrem General: Yes normal to inspection, Yes full ROM and No edema Psych Affect: normal affect Attitude: cooperative Insight: Good insight present (Psych) Judgement: Good judgement present (Psych) Assessment and Plan Assessment & Plan (1) Aphasia: Code(s): R47.01 - Aphasia Plan: During the exam patient was very frustrated as she was trying to communicate and could not find the words. Daughter mentioned that this is new within the last few months and does not identify an inciting event or a specific day this started. Patient was previously seen by Neurology in 02/2023. Ordered for brain MRI as symptoms are new and subacute and recommend follow up with Neurology in the next 1-2 weeks. Advised patient if she is unable to get to Neurology to reach out to our office. Daughter also mentions she had stopped taking her medications and has recently restarted them. Ordered for updated blood work to evaluate for any abnormalitie s. (2) Weakness on right side of face: Code(s): R29.810 - Facial weakness Plan: Patient states the right side of her face has become weak over the last several months. On exam she does have equal strength with smiling and with raising eyebrows. Neurological exam was limited due to difficulty following directions. Recommend follow up with Neurology and brain MRI. (3) Confusion: Code(s): R41.0 - Disorientation, unspecified Plan: Daughter and patient both report that she has been having increased confusion. She is often forgetful with her basic activities of daily living and is no longer able to cook for herself. She does currently have a [employer] and I do think she would benefit from increasing her hours. Advised her daughter we will work with [employer] to increase the hours as she needs them. Plan This note was constructed using voice recognition software. While every effort has been made to ensure accuracy and decorating instructor, still areas may have been included sometimes these areas may affect the content or meeting of the given symptoms. Total time spent caring for the patient today was 30 minutes. This includes time spent before the visit reviewing the chart, time spent during the visit, and time spent after the visit and documentation. Orders: Orders MR head/brain wo con Today R29.810 - Facial weakness, R41.0 - Disorientation, unspecified, R47.01 - Aphasia Lipid Panel Today Z00.00 - Encounter for general adult medical examination without abnormal findings Comprehensive Met. Panel Today Z00.00 - Encounter for general adult medical examination without abnormal findings TSH reflex Free T4 Today Z00.00 - Encounter for general adult medical examination without abnormal findings Complete Blood Count Auto Diff Today Z00.00 - Encounter for general adult medical examination without abnormal findings Free T4 (Free Thyroxine) Today Z00.00 - Encounter for general adult medical examination without abnormal findings Vitamin B12 and Folate Today Z00.00 - Encounter for general adult medical examination without abnormal findings Vitamin D 25-OH (D2 and D3) Today Z00.00 - Encounter for general adult medical examination without abnormal findings Coding Level of Care Code Est Pt Level 4 (89833) Diagnoses Aphasia R47.01 Weakness on right side of face R29.810 Confusion R41.0
[2023-10-05 08:38] VITALS: BP 118/80; PULSE 96; O2SAT 95; BMI 26.2
== END 2023-10-05 09:26 | disposition home or self-care (01) ==
PROVIDERS: PCP Internal Medicine
DX: R47.01 Aphasia (principal); R29.810 Facial weakness; R41.0 Disorientation, unspecified
CPT/HCPCS: 99214

== ENCOUNTER 2023-10-09 13:05 | Outpatient (REF) | payer OTHER, SELFPAY ==
--- NOTE | ~2023-10-09 | MM_ITS ---
EXAMINATION: MM DIAGNOSTIC DIGITAL BREAST TOMOSYNTHESIS, RIGHT CLINICAL INFORMATION: Evaluate possible area of architectural distortion upper outer right breast middle one third. COMPARISON: Mammography: 07/13/2022, 03/29/2021, 02/11/2020, 11/08/2017. TECHNIQUE: Digital breast tomosynthesis is performed in the following views: 3-D Spot compression right CC and MLO views. Computer-aided diagnosis was used for this study. FINDINGS: There are scattered areas of fibroglandular density (ACR BI-RADS breast composition Category b). Diagnostic views demonstrate no persistent mass, persistent area of architectural distortion, or persistent asymmetry. The parenchyma in the upper outer quadrant of the right breast has a stable appearance dating back to 2018 without change. This represents the patient's normal breast tissue. No skin or axillary abnormalities. MM/MM tomosynthesis added views R IMPRESSION: -No mammographic evidence of malignancy. No persistent abnormality. -Recommend the patient resume routine annual screening in one year. ASSESSMENT: BI-RADS BI-RADS 1 - Negative RECOMMENDATION: 1 year F/U Results were provided to the patient at time of visit by the technologist. This patient's information was entered into a reminder system with a target due date for their next mammogram. Electronically signed by: Skip Cadet MD 10/09/2023 01:48 PM EDT
== END 2023-10-09 13:06 | disposition home or self-care (01) ==
LOC: HO.MAMMO 13:05
PROVIDERS: PCP Internal Medicine; Visit Provider Internal Medicine
DX: N64.89 Other specified disorders of breast (principal)
CPT/HCPCS: 77061; 77065

== ENCOUNTER → 2023-10-09 13:30 | Outpatient (BNV) | payer OTHER, SELFPAY | PROVIDERS: PCP Internal Medicine; Visit Provider Radiology Diagnostic Radiology | DX: R92.8 Other abnormal and inconclusive findings on diagnostic imaging of breast (principal) | CPT/HCPCS: 77065; G0279 ==

== ENCOUNTER 2023-10-11 10:14 | Outpatient (REF) | payer OTHER, SELFPAY ==
[2023-10-11 10:33] LABS: MANUAL DIFF FLAG NO
[2023-10-11 10:44] LABS: Basophils Absolute Auto 0.1 X10*3/uL (0.0-0.2); Basophils Percent Auto 0.5 % (0-2); Eosinophils Absolute Auto 0.1 X10*3/uL (0.0-0.4); Eosinophils Percent Auto 0.6 % (0-4); Hematocrit 47.2 % (37.0-47.0); Imm Gran Abs Auto 0.02 X10*3/uL (0.00-0.03); Imm Gran Pct Auto 0.2 % (0.0-0.4); Lymphocytes Percent Auto 32.6 % (20-40); Mean Corpuscular HGB Conc 33.9 g/dl (31.0-35.0); Mean Corpuscular Volume 97.3 fL (80.0-98.0); Mean Platelet Volume 12.8 fL (9.4-12.3); Monocytes Absolute Auto 0.6 X10*3/uL (0.1-1.2); Neutrophils Absolute Auto 5.6 x10*3/uL (2.0-8.3); Neutrophils Percent Auto 60.1 % (45-73); Platelet Count 182 X10*3/uL (160-400); Red Blood Count 4.85 X10*6/uL (4.20-5.50); Red Cell Distribution Width 13.1 % (11.0-16.0); White Blood Count 9.2 X10*3/uL (4.8-10.8)
[2023-10-11 11:24] LABS: Alanine Aminotransferase 26 U/L (0-31); Albumin Level 4.7 g/dL (3.5-5.0); Alkaline Phosphatase 88 U/L (39-117); Anion Gap 15 (12-20); Aspartate Amino Transferase 29 U/L (5-31); Bilirubin Total 0.5 mg/dL (0.0-1.0); Blood Urea Nitrogen 15 mg/dL (9-16); Calcium 10.3 mg/dL (8.4-10.2); Carbon Dioxide 23 mmol/L (22-29); Chloride 110 mmol/L (96-108); Cholesterol 179 mg/dL (<200); Estimated Glomerular Filt Rate > 60; Glucose Random 109 mg/dL (60-115); HDL Cholesterol 46 mg/dL (>40); LDL Cholesterol Calculated 109 mg/dL (<100); Potassium 4.4 mmol/L (3.3-5.1); Sodium 144 mmol/L (135-145); Total Protein 7.4 g/dL (6.5-8.0); Triglycerides 123 mg/dL (<150)
[2023-10-11 11:41] LABS: Folate 5.4 ng/mL (> or = 4.0); Vitamin B12 226 pg/mL (200-900)
[2023-10-11 11:46] LABS: TSH reflex Free T4 0.71 uIU/mL (0.32-4.0)
[2023-10-16 15:08] LABS: Vitamin D 25-OH, D2 <4 ng/mL; Vitamin D 25-OH, D3 27 ng/mL; Vitamin D 25-OH, Total 27 ng/mL (30-100)
== END 2023-10-11 10:15 | disposition home or self-care (01) ==
LOC: HO.LAB 10:14
PROVIDERS: PCP Internal Medicine
DX: Z00.00 Encounter for general adult medical examination without abnormal findings (principal); Z20.2 Contact with and (suspected) exposure to infections with a predominantly sexual mode of transmission
CPT/HCPCS: 36415; 80053; 80061; 82306; 82607; 82746; 84439; 84443; 85025

== ENCOUNTER 2023-10-18 09:13 | Emergency (ER) | payer OTHER, SELFPAY ==
[2023-10-18] VITALS (14 sets, daily range): BP systolic 109–145; BP diastolic 68–94; PULSE 64–83; RESP 12–20; TEMP 36.2–36.8; O2SAT 95–99; BMI 29.9
--- NOTE | ~2023-10-18 | CT_ITS ---
CT ANGIOGRAM NECK WITH CONTRAST CT ANGIOGRAM BRAIN WITH CONTRAST CLINICAL INFORMATION: Altered mental status. COMPARISON: Head CT October 18, 2023. TECHNIQUE: Test bolus sequences followed by intravenous administration 70 mL of Omnipaque 350. Helical imaging was performed in the axial plane from the thoracic inlet to the skull vertex. Delayed postcontrast imaging of the head was also performed. The data was processed at the robotics technologist workstation for generation of MIP sequences. Angled MIPs and volume rendered reformatted images were also generated at an offline 3D workstation under concurrent supervision. Stenoses are assessed in accordance with NASCET criteria unless otherwise indicated. This CT examination was performed using dose optimization techniques as appropriate, variously including the following: *Automated exposure control *Adjustment of mA and/or kV according to patient size (this includes techniques or standardized protocols for targeted exams where dose is matched to indication/reason for exam; i.e. extremities or head) *Use of iterative reconstruction technique FINDINGS: BRAIN: Redemonstration of a large mixed septated cystic and solid mass within the left cerebral hemisphere measuring up to 9.3 cm AP by 5 cm TV by 6 cm CC in size. The mass with surrounding edema and/or infiltrative tumor results in significant compression of the left lateral and third ventricles, enlargement/entrapment of the right lateral ventricle, enlargement/entrapment of the left temporal horn, 1.3 cm rightward midline shift, and left-sided descending transtentorial herniation with mass effect on the midbrain. Neurosurgical consultation, a MRI of the brain with and without contrast, and a full malignancy workup are advised. 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 CERVICAL SOFT TISSUES AND LUNG APICES: Imaged upper lungs are clear. There is multilevel cervical spondylosis. There are no significant soft tissue findings within the neck. NECK CTA: [There is a classic 3 vessel configuration of the aortic arch. Proximal arch vessels are non-stenotic. The vertebral arteries are codominant. No significant ostial stenosis is visualized on either side. Both vertebral arteries are widely patent throughout their extracranial cervical course. Both common and internal carotid arteries are normal in course and caliber.] BRAIN CTA: There is hypervascular neovascularity along the periphery of the aforementioned mass. There is extrinsic mass effect on the left posterior cerebral artery which remains patent. No aneurysm. Timing of the contrast bolus allows assessment of the major dural venous sinuses, which all opacify normally] CT/CT angio head neck stroke IMPRESSION: * Redemonstration of a large mixed septated cystic and solid mass within the left cerebral hemisphere measuring up to 9.3 cm AP by 5 cm TV by 6 cm CC in size. The mass with surrounding edema and/or infiltrative tumor results in significant compression of the left lateral and third ventricles, enlargement/entrapment of the right lateral ventricle, enlargement/entrapment of the left temporal horn, 1.3 cm rightward midline shift, and left-sided descending transtentorial herniation with mass effect on the midbrain and extrinsic mass effect on the left posterior cerebral artery which remains patent. Neurosurgical consultation, a MRI of the brain with and without contrast, and a full malignancy workup are advised. 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 * There is hypervascular neovascularity along the periphery of the aforementioned mass. * No significant arterial stenoses and no acute arterial occlusions within the head or neck. Electronically signed by: Brain Barnes MD 10/18/2023 10:04 AM EDT
--- NOTE | ~2023-10-18 | CT_ITS ---
EXAMINATION: CT HEAD WITHOUT CONTRAST (STROKE PROTOCOL) CLINICAL INFORMATION: Altered mental status. COMPARISON: Head CT March 05, 2023. TECHNIQUE: Contiguous axial imaging was performed from the skull base to vertex without intravenous administration of contrast. This CT examination was performed using dose optimization techniques as appropriate, variously including the following: *Automated exposure control *Adjustment of mA and/or kV according to patient size (this includes techniques or standardized protocols for targeted exams where dose is matched to indication/reason for exam; i.e. extremities or head) *Use of iterative reconstruction technique FINDINGS: There is a new large mixed septated cystic and solid mass within the left cerebral hemisphere measuring up to 9.3 cm AP by 5 cm TV by 6 cm CC in size. The mass with surrounding edema and/or infiltrative tumor results in significant compression of the left lateral and third ventricles, enlargement/entrapment of the left temporal horn, enlargement/entrapment of the right lateral ventricle, 1.3 cm rightward midline shift, and left-sided descending transtentorial herniation with mass effect on the midbrain. Neurosurgical consultation, a MRI of the brain with and without contrast, and a focal malignancy workup are advised. 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 There are no acute territorial infarcts. CT/CT head for stroke IMPRESSION: There is a new large mixed septated cystic and solid mass within the left cerebral hemisphere measuring up to 9.3 cm AP by 5 cm TV by 6 cm CC in size. The mass with surrounding edema and/or infiltrative tumor results in significant compression of the left lateral and third ventricles, enlargement/entrapment of the right lateral ventricle, enlargement/entrapment of the left temporal horn, 1.3 cm rightward midline shift, and left-sided descending transtentorial herniation with mass effect on the midbrain. Neurosurgical consultation, a MRI of the brain with and without contrast, and a full malignancy workup are advised. 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 Critical findings discussed with Marcel Fowler at 9:44 AM on October 18, 2023. Electronically signed by: Brani Barnes MD 10/18/2023 09:51 AM EDT
--- NOTE | 2023-10-18 09:17 | ECG_ITS ---
Test Reason : CP Blood Pressure : / mmHG Vent. Rate : 080 BPM Atrial Rate : 080 BPM P-R Int : 152 ms QRS Dur : 064 ms QT Int : 368 ms P-R-T Axes : 022 004 023 degrees QTc Int : 424 ms Normal sinus rhythm Normal ECG When compared with ECG of 01-NOV-2022 15:28, No significant change was found Referred By: Marcel Fowler Electronically Signed By:RODRIGUEZ RUSH
--- NOTE | 2023-10-18 09:22 | ED_ITS ---
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 Last known well unknown and when asked by patient when she noticed symptoms of R sided weakness she shrugs her shoulders. Was seen by primary care office on 10/04 for confusion, aphasia, R sided facial droop. There was no documentation or complaint of R sided paralysis. On finding patient today she has complete R sided hemiparesis, confusion and not speaking. No other history provided I cannot reach her family Onset (ago): unknown Timing confirmed by: other Location: speech, right face, right arm, right leg and altered History of same: Yes Severity: severe Quality: weak and numb Relieving factors: none Exacerbating factors: none Context: other Associated symptoms: denies other symptoms Treatments Prior to Arrival: none Related Data Previous Rx's ?Medication ?Instructions ?Recorded omeprazole 40 mg capsule,delayed 40 mg PO DAILY #90 caps 10/22/21 release epinephrine 0.3 mg/0.3 mL 0.3 mg (0.3 mL) IM Q4H PRN 10/27/22 injection, auto-injector (EpiPen) anaphylaxis #2 ea COVID-19 antigen test (QuickVue #2 ea 11/24/22 At-Home COVID-19 Test kit) ondansetron 4 mg disintegrating 4 mg PO Q8H PRN nausea and 11/24/22 tablet vomiting #20 tabs cholecalciferol (vitamin D3) 25 25 mcg PO DAILY 90 days #90 tabs 12/23/22 mcg (1,000 unit) tablet albuterol sulfate 90 mcg/actuation 2 puff inhalation Q6H PRN 02/21/23 aerosol inhaler (Ventolin HFA) shortness of breath or wheezing 30 days #8.5 grams fluticasone propionate 50 2 spray intranasal DAILY PRN 02/21/23 mcg/actuation nasal allergy symptoms 30 days #16 grams spray,suspension estradiol 10 mcg vaginal tablet 10 mcg vaginal 2XW #8 tabs 02/23/23 (Vagifem) hydroxyzine HCl 25 mg tablet 25 mg PO TID PRN anxiety 30 days 03/15/23 #90 tabs sertraline 50 mg tablet 50 mg PO DAILY 90 days #90 tabs 03/15/23 trazodone 100 mg tablet 100 mg PO BEDTIME PRN for insomnia 05/17/23 #30 tabs Shower Chair #1 ea 06/21/23 ibuprofen 400 mg tablet 400 mg PO Q8H 30 days #90 tabs 07/04/23 simvastatin 20 mg tablet 20 mg PO BEDTIME #90 tabs 07/04/23 acetaminophen 300 mg-codeine 15 mg 1 tab PO BEDTIME PRN severe pain 10/05/23 tablet #10 tabs Allergies Allergy/AdvReac Type Severity Reaction Status Date / Time nitrofurantoin AdvReac Severe Hives Verified 10/18/23 09:54 [From Macrobid] Review of Systems 2 Review of Systems: ROS unable to be obtained due to altered mental status PMFSH Past Medical History Attestation statement: The following information was validated with the patient. Source: old records reviewed Medical History Migraine COPD (chronic obstructive pulmonary disease) Thrombocytopenia Overweight (BMI 25.0-29.9) Smoker Arthralgia Left hip pain Abdominal pain Anxiety and depression Degenerative arthritis Cellulitis of right ring finger Ankle pain, left Posttraumatic stress disorder Mild stress incontinence Lumbar radiculopathy DDD (degenerative disc disease), thoracolumbar Degenerative disc disease, cervical Vitamin D deficiency Carpal tunnel syndrome on both sides Fibromyalgia Insomnia Impaired fasting glucose Pure hypercholesterolemia Surgical History History of hip surgery History of tubal ligation Family History Family History Father Diabetes Hypertension Mother Diabetes Hypertension Maternal Grandmother Renal disease Daughter Depression with anxiety Son Depression with anxiety Social History Social History Housing: House Alcohol intake: current Alcohol intake frequency: holidays/special occasions only Alcohol type: beer Comment: UNSTEADY ON FEET PER PATIENT, Patient Tobacco Use Status: Current everyday Tobacco user Tobacco use type: Cigarette Cigarette Packs Per Day: 0.5 Cigarettes Per Day: 10.0 Years Smoked: 10 e-Cigarette/Vaping Use: Never Used Second Hand Smoke Exposure: Yes Substance Use Type: Marijuana Advance Directives: No Advance Directives Date on File: 12/02/19 service: No Current occupational status: disabled Current occupational exposures/hazards: No Cognitive needs: No Hearing needs: No Vision needs: Yes Physical Exam 2 Vital Signs: Vital Signs: Last Vital Signs Temp 98.1 F 10/18/23 09:51 Pulse 77 10/18/23 09:51 Resp 18 10/18/23 09:51 BP 145/90 H 10/18/23 09:51 Pulse Ox 97 10/18/23 09:51 O2 Del Method Room Air 10/18/23 09:51 BMI result Body Mass Index 29.9 Appearance: Alert. unable to speak shrugs L shoulder to questions, tracks with eyes. moderate acute distress. Eyes: Pupils equal, round and reactive to light. 3mm ENT: Pharynx normal. atraumatic Neck: Normal inspection. Neck supple. CVS: Normal heart rate and rhythm. Pulses normal. Respiratory: No respiratory distress. Breath sounds normal. Abdomen: Soft and non-tender. Skin: Skin warm and dry. Normal skin color. Extremities: No lower extremity edema. Neuro: Dense R sided hemiparesis, confused, aphasia Course Course Course Narrative: left message with Daughter no response - Saranya Reevaluation(s) Reevaluation #1: call to [facility] transfer line 1017am TRAE Q2hr neuro checks 4mg every 6hr MRI once she gets there accepted under hospitalist - Reevaluation #2: 1020am LIZY PA - called accepted under Dr. Wilver Dooley aware from hospitalist service will admit call with bed available Reevaluation #3: son answered merna [phone] he is aware will try to notify sister Medications Administered Discontinued Medications Generic Name Dose Route Start Last Admin Trade Name Frejamee PRN Reason Stop Dose Admin Dexamethasone Sodium Phosphate 8 mg 10/18/23 10:01 10/18/23 10:22 Dexamethasone Sod Phosphate 4 Mg/Ml Vial IVPUSH 10/18/23 10:02 8 mg ONCE ONE Administration Iohexol 100 ml 10/18/23 09:39 10/18/23 09:39 Iohexol 350 Mg/Ml 100 Ml Infus..Btl IV 10/18/23 09:40 70 ml ONCE ONE Administration Medical Decision Making Medical Decision Making [facility] Narrative: 53 yo female with PMH of HLD, GERD, PTSD, COPD, depression, not on blood thinners here with recent visit to PCP - documented confusion, aphasia (was talking at visit) and only R sided facial droop now found down with dense R sided hemiparesis, confused, mute - at this time sent in for STAT CTA/CT head could be ICH/LVO and or mass. She would not be a candidate for TNK pending CTA given we have no window and it could be evolved stroke from 10/04 visit with PCP. Will contact daughter Saranya on arrival [phone] - no answer left message about urgency Differential Diagnosis Differential Diagnoses: The differential diagnosis associated with the presentation includes stroke, mass, LVO, ICH Admission/Observation Consideration of admission/observation: Escalation of care including admission/observation considered given mass needs tertiary center with NSGY Consult Healthcare Provider Management of the patient was discussed with: Platform Engineer NSGY aware at [facility] admit Lab Data [facility] Lab Attestation statement: I reviewed the patient's lab results. 10/18/23 10:11 10/18/23 10:11 Labs: Lab Results 10/18/23 10/18/23 10/18/23 Range/Units 09:18 09:22 10:11 WBC 8.3 (4.8-10.8) X10*3/uL RBC 4.54 (4.20-5.50) X10*6/uL Hgb 15.3 (12.0-16.0) g/dl Hct 44.2 (37.0-47.0) % MCV 97.4 (80.0-98.0) fL MCH 33.7 H (27.0-33.0) pg MCHC 34.6 (31.0-35.0) g/dl RDW 12.4 (11.0-16.0) % Plt Count 175 (160-400) X10*3/uL MPV 13.4 H (9.4-12.3) fL Immature Gran % (Auto) 0.2 (0.0-0.4) % Neut % (Auto) 65.9 (45-73) % Lymph % (Auto) 27.0 (20-40) % [place] % (Auto) 6.0 (2-11) % Eos % (Auto) 0.4 (0-4) % Baso % (Auto) 0.5 (0-2) % Lymph # (Auto) 2.3 (1.2-4.9) X10*3/uL [place] # (Auto) 0.5 (0.1-1.2) X10*3/uL Eos # (Auto) 0.0 (0.0-0.4) X10*3/uL Baso # (Auto) 0.0 (0.0-0.2) X10*3/uL Abs Immat Gran (auto) 0.02 (0.00-0.03) X10*3/uL Absolute Neuts (auto) 5.5 (2.0-8.3) x10*3/uL Absolute Nucleated RBC 0.000 (0.0-0.012) X10*3/uL Nucleated RBC % (auto) 0.0 (0.0-0.2) /100WBC PT 12.3 (11.1-13.3) SEC Whole Blood PT 12.8 (11.1-13.5) sec INR 1.0 (0.9-1.1) Whole Blood INR 1.1 (0.9-1.1) Sodium 143 (135-145) mmol/L Potassium 4.2 (3.3-5.1) mmol/L Chloride 111 H (96-108) mmol/L Carbon Dioxide 23 (22-29) mmol/L Anion Gap 13 (12-20) BUN 19 H (9-16) mg/dL Creatinine 0.99 (0.5-1.4) mg/dL Estim Creat Clear Calc 65.2 Estimated GFR 58 POC Glucose 109 (60-115) mg/dL Random Glucose 112 (60-115) mg/dL Estimat Average Glucose 100 mg/dL Hemoglobin A1c % 5.1 (<6.0) % Calcium 9.9 (8.4-10.2) mg/dL Magnesium 2.3 (1.6-2.6) mg/dL Total Bilirubin 0.6 (0.0-1.0) mg/dL AST 38 H (5-31) U/L ALT 36 H (0-31) U/L Alkaline Phosphatase 87 (39-117) U/L Total Creatine Kinase 61 (26-140) U/L Troponin I High Sens < 2.7 (<3.5-17.0) ng/L Total Protein 7.1 (6.5-8.0) g/dL Albumin 4.5 (3.5-5.0) g/dL Triglycerides 137 (<150) mg/dL Cholesterol 185 (<200) mg/dL LDL Cholesterol, Calc 124 H (<100) mg/dL HDL Cholesterol 34 L (>40) mg/dL Ethyl Alcohol < 10 mg/dL Independent Interpretation I performed an independent interpretation of an: EKG and CT Scan Interpretation: Rate: 80 Rhythm: NSR [place]: normal Normal P waves. Normal MICHELLE. Normal QRS complex. ST T wave : nonspecific ST T wave changes V5-V6, no TRACY qTC: 424 prior studies: no acute ischemia The study has been interpreted contemporaneously by me. FINDINGS: BRAIN: Redemonstration of a large mixed septated cystic and solid mass within the left cerebral hemisphere measuring up to 9.3 cm AP by 5 cm TV by 6 cm CC in size. The mass with surrounding edema and/or infiltrative tumor results in significant compression of the left lateral and third ventricles, enlargement/entrapment of the right lateral ventricle, enlargement/entrapment of the left temporal horn, 1.3 cm rightward midline shift, and left-sided descending transtentorial herniation with mass effect on the midbrain. Neurosurgical consultation, a MRI of the brain with and without contrast, and a full malignancy workup are advised. 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 CERVICAL SOFT TISSUES AND LUNG APICES: Imaged upper lungs are clear. There is multilevel cervical spondylosis. There are no significant soft tissue findings within the neck. NECK CTA: [There is a classic 3 vessel configuration of the aortic arch. Proximal arch vessels are non-stenotic. The vertebral arteries are codominant. No significant ostial stenosis is visualized on either side. Both vertebral arteries are widely patent throughout their extracranial cervical course. Both common and internal carotid arteries are normal in course and caliber.] BRAIN CTA: There is hypervascular neovascularity along the periphery of the aforementioned mass. There is extrinsic mass effect on the left posterior cerebral artery which remains patent. No aneurysm. Timing of the contrast bolus allows assessment of the major dural venous sinuses, which all opacify normally] CT/CT angio head neck stroke IMPRESSION: * Redemonstration of a large mixed septated cystic and solid mass within the left cerebral hemisphere measuring up to 9.3 cm AP by 5 cm TV by 6 cm CC in size. The mass with surrounding edema and/or infiltrative tumor results in significant compression of the left lateral and third ventricles, enlargement/entrapment of the right lateral ventricle, enlargement/entrapment of the left temporal horn, 1.3 cm rightward midline shift, and left-sided descending transtentorial herniation with mass effect on the midbrain and extrinsic mass effect on the left posterior cerebral artery which remains patent. Neurosurgical consultation, a MRI of the brain with and without contrast, and a full malignancy workup are advised. 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 * There is hypervascular neovascularity along the periphery of the aforementioned mass. * No significant arterial stenoses and no acute arterial occlusions within the head or neck. Radiology Impression Discussion of test interpretation with radiology: I discussed test interpretation with the radiologist and I have reviewed the radiologist's reading. Radiologist Impression: mass seen Independent Historian Clinical information obtained from an independent historian. History obtained from or confirmed by: EMS External Record Review External record reviewed: Outpatient record NIH Stroke Scale Internal: Initial- Upon Arrival Level of Consciousness: Alert Level of Consciousness Questions: Answers neither question correctly Level of Consciousness Commands: Performs one task correctly Best Gaze: Normal Visual: No visual loss Facial Palsy: Partial paralysis Motor Arm (Right): No movement Motor Arm (Left): No drift Motor Leg (Right): No movement Motor Leg (Left): No drift Limb Ataxia: Absent Sensory: Mild to moderate sensory loss Best Language: Mute, global aphasia Dysarthia: Severe dysarthria Extinction and Inattention: Visual, tactile, auditory, spatial, or personal inattention Score: 20 Critical Care Time Critical Care Time Critical Care Time: Yes Total Critical Care Time: 60 Attestation: review of records, stroke protocol, consult, transfer to tertiary center Discharge Plan Discharge Clinical Impression: Aphasia, Intracranial mass Hemiparesis of right dominant side Qualifiers: Hemiparesis etiology: unspecified Qualified Code(s): G81.91 - Hemiplegia, unspecified affecting right dominant side Patient Disposition: [facility] Transfer Details: [facility] Prescriptions: No Action omeprazole 40 mg capsule,delayed release(DR/EC) 40 mg PO DAILY Qty: 90 1RF albuterol sulfate [Ventolin HFA] 90 mcg/actuation HFA aerosol inhaler 2 puff inhalation Q6H PRN (Reason: shortness of breath or wheezing) 30 Days Qty: 8.5 1RF fluticasone propionate 50 mcg/actuation spray,suspension 2 spray intranasal DAILY PRN (Reason: allergy symptoms) 30 Days Qty: 16 5RF Rx Instructions: administer into each nostril trazodone 100 mg tablet 100 mg PO BEDTIME PRN (Reason: for insomnia) Qty: 30 2RF (DME) Shower Chair Misc See Rx Instructions .Route Qty: 1 0RF Rx Instructions: As directed acetaminophen-codeine 300-15 mg tablet 1 tab PO BEDTIME PRN (Reason: severe pain) Qty: 10 1RF Rx Instructions: Take at bedtime as needed only for severe pain ondansetron 4 mg tablet,disintegrating 4 mg PO Q8H PRN (Reason: nausea and vomiting) Qty: 20 0RF (DME) QuickVue At-Home COVID-19 Test Kit See Rx Instructions .Route Qty: 2 0RF Rx Instructions: As directed epinephrine [EpiPen] 0.3 mg/0.3 mL auto-injector 0.3 mg IM Q4H PRN (Reason: anaphylaxis) Qty: 2 0RF flu vacc [id number] 6mos up(PF) 60 mcg (15 mcg x 4)/0.5 mL syringe 0.5 ml IM ONCE Qty: 0.5 0RF ibuprofen 400 mg tablet 400 mg PO Q8H 30 Days Qty: 90 0RF Rx Instructions: Take with food simvastatin 20 mg tablet 20 mg PO BEDTIME Qty: 90 1RF cholecalciferol (vitamin D3) 25 mcg (1,000 unit) tablet 25 mcg PO DAILY 90 Days Qty: 90 3RF sertraline 50 mg tablet 50 mg PO DAILY 90 Days Qty: 90 1RF hydroxyzine HCl 25 mg tablet 25 mg PO TID PRN (Reason: anxiety) 30 Days Qty: 90 0RF estradiol [Vagifem] 10 mcg tablet 10 mcg vaginal 2XW Qty: 8 5RF Rx Instructions: place vaginally at bedtime Mon/Thurs Print Language: [place]ralt[place]
[2023-10-18 09:26] LABS: Prothrombin Time Whole Bld POC 12.8 sec (11.1-13.5); ~PT, ~INR - Anti Coag Clinic 1.1 (0.9-1.1)
[2023-10-18 09:27] LABS: Glucose, Whole Blood 109 mg/dL (60-115)
[2023-10-18] MEDS: iohexoL 350 MG/ML 100 ML INFUS..BTL IV (09:39)
[2023-10-18 10:16] LABS: MANUAL DIFF FLAG NO
[2023-10-18 10:20] LABS: Basophils Percent Auto 0.5 % (0-2); Eosinophils Percent Auto 0.4 % (0-4); Hematocrit 44.2 % (37.0-47.0); Hemoglobin 15.3 g/dl (12.0-16.0); Imm Gran Abs Auto 0.02 X10*3/uL (0.00-0.03); Imm Gran Pct Auto 0.2 % (0.0-0.4); Lymphocytes Absolute Auto 2.3 X10*3/uL (1.2-4.9); Mean Corpuscular HGB Conc 34.6 g/dl (31.0-35.0); Mean Corpuscular Hemoglobin 33.7 pg (27.0-33.0); Mean Corpuscular Volume 97.4 fL (80.0-98.0); Mean Platelet Volume 13.4 fL (9.4-12.3); Monocytes Absolute Auto 0.5 X10*3/uL (0.1-1.2); Neutrophils Absolute Auto 5.5 x10*3/uL (2.0-8.3); Neutrophils Percent Auto 65.9 % (45-73); Platelet Count 175 X10*3/uL (160-400); Red Blood Count 4.54 X10*6/uL (4.20-5.50); Red Cell Distribution Width 12.4 % (11.0-16.0); White Blood Count 8.3 X10*3/uL (4.8-10.8)
[2023-10-18] MEDS: dexAMETHasone sod phosphate 4 MG/ML VIAL 8 MG IVPUSH (10:22)
[2023-10-18 10:24] LABS: Prothrombin Time 12.3 SEC (11.1-13.3)
[2023-10-18 10:36] LABS: Alanine Aminotransferase 36 U/L (0-31); Albumin Level 4.5 g/dL (3.5-5.0); Alkaline Phosphatase 87 U/L (39-117); Anion Gap 13 (12-20); Aspartate Amino Transferase 38 U/L (5-31); Bilirubin Total 0.6 mg/dL (0.0-1.0); Blood Urea Nitrogen 19 mg/dL (9-16); Calcium 9.9 mg/dL (8.4-10.2); Carbon Dioxide 23 mmol/L (22-29); Chloride 111 mmol/L (96-108); Cholesterol 185 mg/dL (<200); Creatinine Clr Calc Pharmacy 65.2; Estimated Average Glucose 100 mg/dL; Estimated Glomerular Filt Rate 58; Glucose Random 112 mg/dL (60-115); HDL Cholesterol 34 mg/dL (>40); Hemoglobin A1c % 5.1 % (<6.0); LDL Cholesterol Calculated 124 mg/dL (<100); Magnesium 2.3 mg/dL (1.6-2.6); Potassium 4.2 mmol/L (3.3-5.1); Sodium 143 mmol/L (135-145); Total Protein 7.1 g/dL (6.5-8.0); Triglycerides 137 mg/dL (<150)
[2023-10-18 10:39] LABS: Ethanol < 10 mg/dL
[2023-10-18 10:40] LABS: Troponin-I High Sensitivity < 2.7 ng/L (<3.5-17.0)
--- NOTE | 2023-10-18 10:56 | PC.NURSE ---
Patient's son, Bennie, called and wanted to speak with Mom. Best call back number is [phone]. Cordless phone held to patient's ear by this RN. Pt unable to verbally respond to son's statements, but nodded 'yes' when Bennie stated I love you, I know that you're scared, but you're in good hands. The doctors are gonna help you with what's going on with your head and take care of you . Pt remains calm/cooperative at this time. Bennie aware of plan to transfer to [facility], pending ambulance transfer for further care. Pt sitting upright at this time in bed. 18g IV access in left AC placed by this RN upon arrival to ED. Plan to call Bennie back once ambulance arrives to [facility] ED. [facility] has accepted the patient at this time, pending bed assignment. Care ongoing.
[2023-10-18 11:48] LABS: Appearance Urine Clear; Color Urine Yellow; Glucose Urine UA Negative (Negative); Leukocyte Esterase Urine Negative (Negative); Nitrite Urine Negative (Negative); Specific Gravity - Urine >= 1.030 (1.005-1.025); Urine Blood Negative (Negative); Urine Ketones Negative (Negative); Urine Protein Trace mg/dL (Neg-Trace)
[2023-10-18 11:59] LABS: Amphetamine Screen Urine Not Detected (Not Detect); Barbiturates, Urine Not Detected (Not Detect); Benzodiazepines Screen Urine Not Detected (Not Detect); Buprenorphine Scr Not Detected (Not Detect); Cannabinoid Screen Urine POSITIVE (Not Detect); Cocaine Screen Urine Not Detected (Not Detect); Fentanyl, urine Not Detected (Not Detect); Methadone Screen, Urine Not Detected (Not Detect); Opiate Screen Urine Not Detected (Not Detect); Oxycodone Screen Urine Not Detected (Not Detect); Phencyclidine Screen Urine Not Detected (Not Detect)
--- NOTE | 2023-10-18 12:54 | PC.NURSE ---
patient son in room, noted to be trying to feed patient, attempted to educate son that patient cannot eat or drink anything at this time, patient tells this RN she probably collapsed because she hasnt had anything to eat educated patient that she is to be transported to [facility] and is to remain NPO, son later seen attempting to feed patient again, MD made aware, primary RN made aware.
--- NOTE | 2023-10-18 15:13 | PC.NURSE ---
RN to RN report given to Martha FISHMAN at [facility]. Transfer to [address] Room 17A via ambulance.
== END 2023-10-18 15:15 | disposition short-term general hospital (02) ==
PROVIDERS: Physician Assistant; Emergency Provider Emergency Medicine; PCP Internal Medicine
DX: I63.89 Other cerebral infarction (principal); G81.91 Hemiplegia, unspecified affecting right dominant side; R47.01 Aphasia; R29.720 NIHSS score 20; G93.9 Disorder of brain, unspecified; R41.82 Altered mental status, unspecified; R22.0 Localized swelling, mass and lump, head; J44.9 Chronic obstructive pulmonary disease, unspecified; Z79.899 Other long term (current) drug therapy
CPT/HCPCS: 36415; 70450; 70496; 70498; 80053; 80061; 80307; 81003; 82550; 82947; 83036; 83735; 84484; 85025; 85610; 93005; 99285; J1100; Q9967

== ENCOUNTER 2023-11-06 08:20 | Outpatient (AMB) | payer OTHER, SELFPAY ==
[2023-11-06 08:30] VITALS: BP 106/72; PULSE 98; O2SAT 97; BMI 25.5
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
== END 2023-11-06 09:12 | disposition home or self-care (01) ==
PROVIDERS: PCP Internal Medicine
DX: F41.9 Anxiety disorder, unspecified (principal); F32.9 Major depressive disorder, single episode, unspecified; C71.9 Malignant neoplasm of brain, unspecified; J44.9 Chronic obstructive pulmonary disease, unspecified; R53.1 Weakness; H54.7 Unspecified visual loss

== ENCOUNTER → 2023-11-06 08:20 | Outpatient (BNVA) | payer OTHER, SELFPAY | PROVIDERS: PCP Internal Medicine | DX: F41.9 Anxiety disorder, unspecified (principal); F32.9 Major depressive disorder, single episode, unspecified; C71.9 Malignant neoplasm of brain, unspecified; J44.9 Chronic obstructive pulmonary disease, unspecified; R53.1 Weakness; H54.7 Unspecified visual loss | CPT/HCPCS: 99212 ==

== ENCOUNTER 2023-12-06 11:45 | Outpatient (AMB) | payer OTHER, SELFPAY ==
--- NOTE | 2023-12-06 11:46 | A.OFFPC_ITS ---
Vital Signs 12/06/23 11:47 Height 5 ft 7 in Weight 171 lb 4.787 oz BMI 26.8 BP 100/68 Blood Pressure Location Lt brachial Position Sitting Pulse 79 Pulse Source Pulse Oximeter Pulse Oximetry (%) 98 Oxygen Delivery Method Room Air Intake Visit Reasons: Hyperlipidemia/Cerebral Edemia/Malignant neoplasm Allergies nitrofurantoin [From Macrobid] Adverse Reaction (Severe, Verified 12/06/23 11:51) Hives Medication List - Last Reconciled 12/06/23 by Gayatri Peralta PA-C acetaminophen-codeine 300-15 mg 1 tab PO BEDTIME PRN albuterol sulfate 90 mcg/actuation (Ventolin HFA) 2 puffs inhalation Q6H PRN 30 days amlodipine 10 mg PO DAILY cholecalciferol (vitamin D3) 25 mcg PO DAILY 90 days commode (bedside commode) As directed COVID-19 antigen test (QuickVue At-Home COVID-19 Test kit) As directed dexamethasone 1 mg PO BID epinephrine (EpiPen) 0.3 mg (0.3 mL) IM Q4H PRN estradiol (Vagifem) 10 mcg vaginal 2XW fluticasone propionate 50 mcg/actuation 2 sprays intranasal DAILY PRN 30 days Grab bar As directed- clamp on for bathtub hydroxyzine HCl 25 mg PO TID PRN 30 days ibuprofen 400 mg PO Q8H 30 days omeprazole 40 mg PO DAILY ondansetron 4 mg PO Q8H PRN sertraline 50 mg PO DAILY 90 days Shower Chair As directed simvastatin 20 mg PO BEDTIME trazodone 100 mg PO BEDTIME PRN Tobacco use date assessed: 03/28/23 Dental Screening Dental Screen Date: 03/28/23 HPI Hyperlipidemia/Cerebral Edemia/Malignant neoplasm HPI Details 53-year-old female with past medical his tory of hypercholesterolemia, impaired glucose tolerance, PTSD, COPD, depression and recent diagnosis of glioblastoma on radiation/chemotherapy with [facility] last seen October 2023 coming in for follow up. In review of the notes, patient was seen in [facility] 11/14/2023 after weakness and aphasia stat CT showed findings concerning for recurrent tumor with increased midline shift patient was admitted for further evaluation. Patient was given steroids while admitted and discharged to [facility] where she left AMA and transferred home with VNA services. Patient presents today with her daughter who is her primary caregiver and historian. She states she has been having issues with constipation and was using lactulose while at [facility] with good improvement. She does mentioned she is having a lot of pain in her head which is not well managed by Tylenol and ibuprofen. She is going through radiation Monday through Monday as well as chemo Monday through Monday. They are currently working with [facility] to get patient care hours. [facility] Medical History (Updated 12/06/23 @ 12:47 by Gayatri Peralta PA-C) Migraine COPD (chronic obstructive pulmonary disease) Thrombocytopenia Overweight (BMI 25.0-29.9) Smoker Arthralgia Left hip pain Abdominal pain Anxiety and depression Degenerative arthritis Cellulitis of right ring finger Ankle pain, left Posttraumatic stress disorder Mild stress incontinence Lumbar radiculopathy DDD (degenerative disc disease), thoracolumbar Degenerative disc disease, cervical Vitamin D deficiency Carpal tunnel syndrome on both sides Fibromyalgia Insomnia Impaired fasting glucose Pure hypercholesterolemia Surgical History (Updated 10/23/23 @ 11:56 by Andreas Christensen MD) History of craniotomy History of hip surgery History of tubal ligation Family History Father Diabetes Hypertension Mother Diabetes Hypertension Maternal Grandmother Renal disease Daughter Depression with anxiety Son Depression with anxiety Social History Housing: House Alcohol intake: current Alcohol intake frequency: holidays/special occasions only Alcohol type: beer Comment: UNSTEADY ON FEET PER PATIENT, Patient Tobacco Use Status: Current everyday Tobacco user Tobacco use type: Cigarette Cigarette Packs Per Day: 0.5 Cigarettes Per Day: 10.0 Years Smoked: 10 e-Cigarette/Vaping Use: Never Used Second Hand Smoke Exposure: Yes Substance Use Type: Marijuana Advance Directives Date on File: 12/02/19 service: No Current occupational status: disabled Current occupational exposures/hazards: No Cognitive needs: No Hearing needs: No Vision needs: Yes Female Reproductive History Menstrual Age of Menarche: 10 Questionnaire Thrive Questionnaire Date Thrive assessed: 03/28/23 Are you currently unemployed and looking for a job?: No AUDIT C Alcohol Use Questionnaire (AUDIT-C) 1. How often do you have a drink containing alcohol?: 4 or more times a week 2. How many drinks containing alcohol do you have on a typical day when you are drinking?: 1 or 2 3. How often do you have six or more drinks on one occasion?: Never Total Score: 4 Score Reviewed/Action Taken: Yes KEIRA-7 AMB Questionnaire KEIRA-7 Date KEIRA - 7 assessed: 03/28/23 Source: Developed by Drs. Sacha De La Fuente, No Quintana, Femi Mistry and colleagues, with an educational ghazala from [employer]. Review of Systems Const Reports body aches, Denies chills, Reports fatigue, Denies fever(s), Denies headache(s) and Reports poor appetite Eyes Reports change in vision ENT Denies dysphagia, Denies dizziness, Denies headache(s) and Denies odynophagia Card Denies chest pain, Denies edema, Denies lightheadedness and Denies dyspnea Resp Denies cough and Denies dyspnea GI Denies abdominal pain, Reports constipation, Denies dysphagia, Denies diarrhea, Reports nausea (With chemo), Denies odynophagia and Denies vomiting Reports no additional complaints Musc Reports no additional complaints and Reports abnormal gait Skin/Breast Reports system reviewed and no additional complaints, except as documented Neuro Reports abnormal gait, Denies dizziness and Denies headache(s) Psych Reports no additional complaints Endo Reports fatigue Physical exam (Primary Care) Vital Signs: Last Vital Signs Pulse 79 12/06/23 11:47 Pulse Ox 98 12/06/23 11:47 Oxygen Delivery Method Room Air 12/06/23 11:47 BMI result Body Mass Index 26.8 Tobacco/Smoking Status: Tobacco use Status Tobacco use date assessed 03/28/23 11/06/23 08:38 Patient Tobacco Use Status Current everyday Tobacco 11/06/23 08:38 Tobacco use type Cigarette 11/06/23 08:38 e-Cigarette/Vaping Use Never Used 11/06/23 08:38 Thrive Assessment: Date of Thrive Assessment Date Thrive assessed 03/28/23 11/06/23 08:38 Const General: cooperative, healthy appearing, comfortable and no acute distress Orientation/consciousness: patient oriented x3 HENMT Head: Yes normocephalic Ears: hearing grossly normal bilaterally General nose exam: Normal external nose present Eyes General: appearance normal, both eyes and all related structures Conjunctivae: conjunctivae normal Neck Neck: Yes full ROM and Yes no lymphadenopathy Resp Effort & Inspection: normal respiratory effort Auscultation: clear to auscultation bilaterally, no crackles, no rales, no rhonchi and no wheezes Cardio Rate: regular rate Rhythm: regular rhythm Skin General skin exam: no rashes or lesions noted Neuro General: patient oriented x3 Gait exam (Neuro): Normal gait present Extrem General: Yes normal to inspection, Yes full ROM and No edema Psych Affect: normal affect Attitude: cooperative Insight: Good insight present (Psych) Judgement: Good judgement present (Psych) Coding Level of Care Code Est Pt Level 4 (86533) Diagnoses Glioblastoma C71.9 Right sided weakness R53.1 Gastroesophageal reflux disease without esophagitis K21.9 Esophagitis presence: without esophagitis Constipation K59.00 Assessment & Plan Assessment & Plan (1) Glioblastoma: Comment: Underwent craniotomy 10/20/2023 through [facility] Following with [facility] hematology/oncology Code(s): C71.9 - Malignant neoplasm of brain, unspecified Category: Medical Plan: She is continually working with Hematology/Oncology for chemoradiation. She has been having a lot of cancer-related pain in her head since the radiation and chemotherapy has begun. Discussed to reach out to Oncology for management of this pain. (2) Right sided weakness: Code(s): R53.1 - Weakness Category: Medical Plan: Continue to work with occupational therapy and physical therapy in the home. Patient would benefit from patient care hours she requires assistance for most activities of daily living and relies primarily on her daughter at this time. (3) GERD (gastroesophageal reflux disease): Code(s): K21.9 - Gastro-esophageal reflux disease without esophagitis Category: Medical Qualifiers: Esophagitis presence: without esophagitis Qualified Code(s): K21.9 - Gastro-esophageal reflux disease without esophagitis Plan: Avoid trigger foods such as citrus, tomato products, soda, caffeine, spicy foods and other foods that may be irritating to your stomach. Avoid laying flat 3-4 hours after eating and elevate the head of the bed 30 degrees to prevent acid from moving into the esophagus. (4) Constipation: Code(s): K59.00 - Constipation, unspecified Category: Medical Plan: Patient has been having issues with constipation discussed the importance of high-fiber diet and stay well hydrated. Given Colace to use daily and lactulose to use as needed for constipation. Discuss when using lactulose to have fluids with electrolytes. Plan This note was constructed using voice recognition software. While every effort has been made to ensure accuracy and pension consultant, still areas may have been included sometimes these areas may affect the content or meeting of the given symptoms. Total time spent caring for the patient today was 30 minutes. This includes time spent before the visit reviewing the chart, time spent during the visit, and time spent after the visit and documentation. Medications: New lactulose 20 grams PO BID 15 ea 1RF docusate sodium (Colace) 100 mg PO DAILY 30 caps 2RF [Raised toilet seat with bars] As directed 1 ea 0RF
[2023-12-06 11:47] VITALS: BP 100/68; PULSE 79; O2SAT 98; BMI 26.8
== END 2023-12-06 12:27 | disposition home or self-care (01) ==
PROVIDERS: PCP Internal Medicine
DX: C71.9 Malignant neoplasm of brain, unspecified (principal); R53.1 Weakness; K21.9 Gastro-esophageal reflux disease without esophagitis; K59.00 Constipation, unspecified

== ENCOUNTER → 2023-12-06 11:45 | Outpatient (BNVA) | payer OTHER, SELFPAY | PROVIDERS: PCP Internal Medicine | DX: C71.9 Malignant neoplasm of brain, unspecified (principal); R53.1 Weakness; K21.9 Gastro-esophageal reflux disease without esophagitis; K59.00 Constipation, unspecified | CPT/HCPCS: 99212 ==

== ENCOUNTER 2023-12-13 09:35 | Outpatient (AMB) | payer OTHER, SELFPAY ==
[2023-12-13 09:36] VITALS: BP 118/80; BMI 26.8
--- NOTE | 2023-12-13 09:36 | MHC.OFFVIS ---
Vital Signs 12/13/23 09:36 Height 5 ft 7 in Weight 171 lb BMI 26.8 BP 118/80 Blood Pressure Location Lt brachial Position Sitting Intake Visit Reasons: [employer] annual exam/do not reschedule Allergies nitrofurantoin [From Macrobid] Adverse Reaction (Severe, Verified 12/13/23 09:40) Hives HPI Comments Details: Presenting for annual exam. No complaints. Last Pap/HPV was negative in 10/05 Last Mammogram was BI-RADS 1 in 10/06 Last Colonoscopy was done in 10/05, the recommendation was to 10 years [facility] Medical History Migraine COPD (chronic obstructive pulmonary disease) Thrombocytopenia Overweight (BMI 25.0-29.9) Smoker Arthralgia Left hip pain Abdominal pain Anxiety and depression Degenerative arthritis Cellulitis of right ring finger Ankle pain, left Posttraumatic stress disorder Mild stress incontinence Lumbar radiculopathy DDD (degenerative disc disease), thoracolumbar Degenerative disc disease, cervical Vitamin D deficiency Carpal tunnel syndrome on both sides Fibromyalgia Insomnia Impaired fasting glucose Pure hypercholesterolemia Surgical History History of craniotomy History of hip surgery History of tubal ligation Family History Father Diabetes Hypertension Mother Diabetes Hypertension Maternal Grandmother Renal disease Daughter Depression with anxiety Son Depression with anxiety Social History Housing: House Alcohol intake: current Alcohol intake frequency: holidays/special occasions only Alcohol type: beer Comment: UNSTEADY ON FEET PER PATIENT, Patient Tobacco Use Status: Current everyday Tobacco user Tobacco use type: Cigarette Cigarette Packs Per Day: 0.5 Cigarettes Per Day: 10.0 Years Smoked: 10 e-Cigarette/Vaping Use: Never Used Second Hand Smoke Exposure: Yes Substance Use Type: Marijuana Advance Directives Date on File: 12/02/19 service: No Current occupational status: disabled Current occupational exposures/hazards: No Cognitive needs: No Hearing needs: No Vision needs: Yes Female Reproductive History Menstrual Age of Menarche: 10 control method: none Date of last pap smear: 09/27/22 History of abnormal pap smear: Yes (HPV+ 2021) History of STI: Yes Date of Mammogram: 07/19/23 History of abnormal mammogram: No Review of Systems Const All systems reviewed & are unremarkable except as noted in HPI and below Card Reports as per HPI Resp Reports as per HPI GI Reports as per HPI and Reports no additional complaints Reports as per HPI Physical Exam Vital Signs: Last Vital Signs BP 118/80 12/13/23 09:36 BMI result Body Mass Index 26.8 Const General: cooperative, healthy appearing and comfortable Chest Chest palpation & inspection: normal inspection of the chest and normal palpation of entire chest wall Breast/axilla inspection: normal inspection of the breasts and normal inspection of the axillae Breast/axilla palpation: normal palpation of the breasts, normal palpation of the axillae and no axillary lymphadenopathy Resp Effort & Inspection: normal respiratory effort Auscultation: clear to auscultation bilaterally Percussion: percussion normal Cardio Palpation: normal PMI Rate: regular rate Rhythm: regular rhythm Heart sounds: no murmurs and no rubs Peripheral pulses: Peripheral pulses 2+ throughout GI Inspection: Yes normal to inspection Palpation (GI): Soft to palpation, nontender, no guarding, not rigid and No hepatosplenomegaly present Percussion: Yes normal to percussion Auscultation: normal bowel sounds Rectal Exam - Female: deferred General: Yes bladder normal to palpation External Female Exam: No lesion Speculum Exam - Vagina: normal appearance of the vagina, normal palpation, normal vaginal discharge and not erythematous Speculum Exam - Cervix: normal appearance of the cervix and normal palpation Bimanual exam- vagina & uterus: normal bimanual exam, normal palpation, uterine size normal, bladder normal to palpation, consistency normal and normal palpation Bimanual Exam- Adnexa, other: normal adnexae, no masses and no tenderness Assessment & Plan Assessment & Plan (1) Well woman exam: Code(s): Z01.419 - Encounter for gynecological examination (general) (routine) without abnormal findings Category: Medical Plan: Co testing not indicated this year. Counseled the patient about the recommended dietary allowance of 1200 mg of Calcium & 600 IU of vitamin D. Instructions given to patient to schedule next screen Mammogram in 10/07. The patient was instructed to perform monthly self-breast exams and schedule annual exam in a year. All questions answered and the patient verbalized understanding. Coding Level of Care Code Est Pt Prev Care 40-64y(72706) Diagnoses Well woman exam Z01.419
== END 2023-12-13 10:03 | disposition home or self-care (01) ==
LOC: HO.HWS 09:35
PROVIDERS: PCP Internal Medicine; Visit Provider Obstetrics & Gynecology
DX: Z01.419 Encounter for gynecological examination (general) (routine) without abnormal findings (principal)
CPT/HCPCS: 99396

== ENCOUNTER → 2023-12-13 09:35 | Outpatient (BNVA) | payer OTHER, SELFPAY | PROVIDERS: PCP Internal Medicine; Visit Provider Obstetrics & Gynecology | DX: Z01.419 Encounter for gynecological examination (general) (routine) without abnormal findings (principal) | CPT/HCPCS: 99396 ==

== ENCOUNTER → 2024-10-15 10:50 | Outpatient (RCR) | payer OTHER, SELFPAY ==
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
== END | disposition home or self-care (01) ==
LOC: HO.PT 05-12 10:06
PROVIDERS: PCP Internal Medicine; Visit Provider Physician Assistant
DX: M25.561 Pain in right knee (principal); M76.31 Iliotibial band syndrome, right leg; M25.461 Effusion, right knee
CPT/HCPCS: 97110; 97112; 97161